=== PATIENT | male | born 1950 | race African-American/Black ===

== ENCOUNTER 2016-08-14 23:20 | Emergency (ER) | payer MEDICAID ==
[2016-08-15] MEDS ORDERED: LIDOCAINE 1%/EPINEPHRINE INJ 20 ML VIAL INJ ONE (01:39)
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
[2016-08-15 05:33] VITALS: BP 171/109
== END 2016-08-15 05:50 | disposition home or self-care (01) ==
LOC: ER 23:20
PROC: 0HQ3XZZ Repair Left Ear Skin, External Approach (ICD-10-PCS; principal; 2016-08-14)
PROC: 0HQ1XZZ Repair Face Skin, External Approach (ICD-10-PCS; 2016-08-14)
DX: S01.312A Laceration without foreign body of left ear, initial encounter (principal); S01.81XA Laceration without foreign body of other part of head, initial encounter; Y04.8XXA Assault by other bodily force, initial encounter; Y92.009 Unspecified place in unspecified non-institutional (private) residence as the place of occurrence of the external cause; I10 Essential (primary) hypertension; J44.9 Chronic obstructive pulmonary disease, unspecified; Z79.899 Other long term (current) drug therapy
CPT/HCPCS: 70450; 70486; 72125; 99284

== ENCOUNTER 2016-10-17 11:05 | Emergency (ER) | payer MEDICAID ==
--- NOTE | 2016-10-17 11:49 | ER Document Report ---
ED General - General Chief Complaint: Urinary Problem Stated Complaint: WEAKNESS Time Seen by Provider: 10/17/16 11:11 Mode of Arrival: Stretcher Information source: Parent, Emergency Med Personnel TRAVEL OUTSIDE OF THE [place] IN LAST 30 DAYS: No - HPI Patient complains to provider of: Generalized weakness, left arm pain Onset: This morning Onset/Duration: Gradual Quality of pain: Achy Severity: Mild Pain Level: 1 Associated symptoms: Weakness Exacerbated by: Denies Relieved by: Denies Notes: It is a 66-year-old male who presents to the emergency room via EMS for complaints of generalized weakness, his only complaint at time of evaluation is pain to the left forearm that he says is been there for a couple of days, he denies any injury, no chest pain or shortness of breath, no abdominal pain, no nausea, vomiting or diarrhea - Related Data Allergies/Adverse Reactions: No Known Allergies Allergy (Verified 08/14/16 23:26) Past Medical History - General Information source: Patient, Emergency Med Personnel - Social History Smoking Status: Current Every Day Smoker Chew tobacco use (# tins/day): No Frequency of alcohol use: Social Drug Abuse: None Family History: Reviewed & Not Pertinent Patient has suicidal ideation: No Patient has homicidal ideation: No - Past Medical History Cardiac Medical History: Reports: Hx Atrial Fibrillation, Hx DVT, Hx Hypertension Pulmonary Medical History: Reports: Hx COPD Renal/ Medical History: Denies: Hx Peritoneal Dialysis Psychiatric Medical History: Reports: Hx Depression - Immunizations Hx Diphtheria, Pertussis, Tetanus Vaccination: No Review of Systems - Review of Systems Constitutional: See HPI EENT: No symptoms reported Cardiovascular: No symptoms reported Respiratory: No symptoms reported Gastrointestinal: No symptoms reported Genitourinary: No symptoms reported Male Genitourinary: No symptoms reported Musculoskeletal: See HPI Skin: No symptoms reported Hematologic/Lymphatic: No symptoms reported Neurological/Psychological: No symptoms reported -: Yes All other systems reviewed and negative Physical Exam - Vital signs Vitals: BP 158/101 H 10/17/16 11:11 Interpretation: Hypertensive - General General appearance: Alert In distress: None - HEENT Head: Normocephalic, Atraumatic Eyes: Normal Conjunctiva: Normal Extraocular movements intact: Yes Eyelashes: Normal Pupils: PERRL Mucous membranes: Dry Pharynx: Normal Neck: Normal - Respiratory Respiratory status: No respiratory distress Chest status: Nontender Breath sounds: Normal Chest palpation: Normal - Cardiovascular Rhythm: Regular Heart sounds: Normal auscultation - Abdominal Inspection: Normal Distension: No distension Bowel sounds: Normal Tenderness: Nontender Organomegaly: No organomegaly - Back Back: Normal - Extremities Forearm: Tender - tender to palpate over left mid forearm and dorsal surface, no swelling, no erythema, no bony deformity - Neurological Orientation: Disoriented to events [place] Coma Scale Eye Opening: Spontaneous [place] Coma Scale Verbal: Confused [place] Coma Scale Motor: Obeys Commands [place] Coma Scale Total: 14 - Skin Skin Temperature: Warm Skin Moisture: Dry Skin Color: Normal Course - Re-evaluation Re-evalutation: 10/17/16 14:12 Son is in the emergency room and wants to take him home, he reports that his father is at his baseline mental status and that he will take care of him at home, also have him follow-up with his primary care provider on Tuesday, patient labs are unremarkable, his vital signs are stable, he is agreeable to leaving with his son at this point in time he was discharged with instructions to follow -up with his primary care provider or return if any additional concerns - Vital Signs Vital signs: Temp Pulse Resp BP Pulse Ox 97.6 F 106 H 24 H 161/93 H 98 10/17/16 14:10 10/17/16 14:10 10/17/16 14:10 10/17/16 14:10 10/17/16 14:10 - Laboratory Result Diagrams: 10/17/16 11:36 10/17/16 11:36 Laboratory results interpreted by me: 10/17/16 10/17/16 11:36 11:36 RBC 5.99 H Hct 52.1 H MCHC 31.5 L Glucose 124 H ALT 20 L Total Protein 8.3 H - Diagnostic Test Radiology reviewed: Image reviewed, Reports reviewed - EKG Interpretation by Me EKG shows normal: Sinus rhythm Rate: Normal Rhythm: NSR Discharge - Discharge Clinical Impression: Dysuria Condition: Stable Disposition: HOME, SELF-CARE Instructions: Urinary Tract Infection ([facility]) Additional Instructions: Follow up with your primary care provider in one to 2 days. Return to the emergency room immediately if symptoms worsen or any additional concerns. Prescriptions: Cephalexin Monohydrate [Keflex 500 mg Capsule] 500 mg PO BID #20 capsule Referrals: LIDIA YAP MD [Primary Care Provider] - Follow up as needed
[2016-10-17 11:57] LABS: ABSOLUTE BASOPHILS # (AUTO) 0.1 10^3/uL (0.0-0.2); ABSOLUTE LYMPHOCYTES (AUTO) 1.5 10^3/uL (0.5-4.7); ABSOLUTE MONOCYTES (AUTO) 1.1 10^3/uL (0.1-1.4); ABSOLUTE NEUT (AUTO) 6.9 10^3/uL (1.7-8.2); BASOPHILS % (AUTO) 1.6 % (0-2); EOSINOPHILS % (AUTO) 0.2 % (0-6); HEMATOCRIT 52.1 % (37.9-51.0); HEMOGLOBIN 16.4 g/dL (13.5-17.0); HGB HCT DIFFERENCE -2.9; LYMPHOCYTES % (AUTO) 15.2 % (13-45); MEAN CORPUSCULAR HEMOGLOBIN 27.4 pg (27.0-33.4); MEAN CORPUSCULAR HGB CONC 31.5 g/dL (32.0-36.0); MEAN CORPUSCULAR VOLUME 87 fl (80-97); MONOCYTES % (AUTO) 11.3 % (3-13); RED BLOOD COUNT 5.99 10^6/uL (4.35-5.55); RED CELL DISTRIBUTION WIDTH 12.9 % (11.5-14.0); SEGMENTED NEUTROPHILS % (AUTO) 71.7 % (42-78); WHITE BLOOD COUNT 9.6 10^3/uL (4.0-10.5)
--- NOTE | 2016-10-17 12:02 | RADIOLOGY REPORT (SQ) ---
EXAM DESCRIPTION: CHEST SINGLE VIEW COMPLETED DATE/TIME: 10/17/2016 11:51 am REASON FOR STUDY: cough COMPARISON: 07/21/2016. NUMBER OF VIEWS: One view. TECHNIQUE: Single frontal radiographic view of the chest acquired. LIMITATIONS: None. FINDINGS: LUNGS AND PLEURA: No opacities, masses or pneumothorax. No pleural effusion. MEDIASTINUM AND HILAR STRUCTURES: No masses. Contour normal. HEART AND VASCULAR STRUCTURES: Heart normal in size. Normal vasculature. BONES: No acute findings. HARDWARE: None in the chest. OTHER: No other significant finding. IMPRESSION: NO SIGNIFICANT RADIOGRAPHIC FINDING IN THE CHEST. TECHNICAL DOCUMENTATION: JOB ID: [id number] [employer]- All Rights Reserved
[2016-10-17 12:10] LABS: ALANINE AMINOTRANSFERASE 20 U/L (21-72); ALBUMIN 4.1 g/dL (3.5-5.0); ALKALINE PHOSPHATASE 115 U/L (38-126); ANION GAP 14 (5-19); ASPARTATE AMINO TRANSFERASE 19 U/L (17-59); BILIRUBIN,DIRECT 0.2 mg/dL (0.0-0.4); BILIRUBIN,TOTAL 1.3 mg/dL (0.2-1.3); BLOOD UREA NITROGEN 15 mg/dL (7-20); CALCIUM 9.7 mg/dL (8.4-10.2); CARBON DIOXIDE 24 mmol/L (22-30); CHLORIDE 103 mmol/L (98-107); CREATINE KINASE 128 U/L (55-170); CREATININE RESULT 1.19 mg/dL (0.52-1.25); GLUCOSE 124 mg/dL (75-110); POTASSIUM 3.6 mmol/L (3.6-5.0); SODIUM 140.9 mmol/L (137-145); TOTAL PROTEIN 8.3 g/dL (6.3-8.2)
[2016-10-17 12:22] LABS: CREATINE KINASE MB 1.34 ng/mL (<4.55)
[2016-10-17 12:23] LABS: TROPONIN I < 0.012 ng/mL
[2016-10-17 13:01] LABS: VENOUS BLOOD BASE EXCESS 0.8 mmol/L; VENOUS BLOOD HCO3 26.4 mmol/L (20-32); VENOUS BLOOD PCO2 45.4 mmHg (35-63); VENOUS BLOOD PH 7.38 (7.30-7.42)
[2016-10-17 14:37] VITALS: BP 161/93
--- NOTE | 2016-10-17 14:42 | RADIOLOGY REPORT (SQ) ---
EXAM DESCRIPTION: FOREARM LEFT COMPLETED DATE/TIME: 10/17/2016 1:58 pm REASON FOR STUDY: pain COMPARISON: None. NUMBER OF VIEWS: Two views. TECHNIQUE: Two radiographic images acquired of the left forearm, including elbow and wrist in at [address] one projection. LIMITATIONS: None. FINDINGS: MINERALIZATION: Normal. BONES: No acute fracture. No worrisome bone lesions. There is bony spurring along the olecranon, an d bony spurring at the proximal radioulnar joint and radiohumeral joint. SOFT TISSUES: No obvious swelling or foreign body. OTHER: IV in the dorsal left wrist. IMPRESSION: No acute fracture or malalignment. 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 TECHNICAL DOCUMENTATION: JOB ID: [id number] [employer]- All Rights Reserved
--- NOTE | 2016-10-17 17:52 | EKG REPORT ---
SEVERITY:- ABNORMAL ECG - SINUS RHYTHM PROBABLE LEFT ATRIAL ABNORMALITY PROBABLE LEFT VENTRICULAR HYPERTROPHY : Confirmed by: Ifeanyi Porras 17-Oct-2016 17:50:52
== END 2016-10-17 14:37 | disposition home or self-care (01) ==
LOC: ER 11:05
DX: R30.0 Dysuria (principal); R53.1 Weakness; M79.602 Pain in left arm; F17.200 Nicotine dependence, unspecified, uncomplicated; I48.91 Unspecified atrial fibrillation; I10 Essential (primary) hypertension; J44.9 Chronic obstructive pulmonary disease, unspecified; Z86.718 Personal history of other venous thrombosis and embolism
CPT/HCPCS: 36415; 71010; 80053; 82550; 82553; 82803; 84484; 85025; 87040; 93005; 93010; 99285

== ENCOUNTER 2016-11-18 10:55 | Inpatient (IN) | payer MEDICARE, MEDICAID ==
--- NOTE | 2016-11-18 11:34 | ER Document Report ---
ED Dizziness/Weakness - General Mode of Arrival: Medic Information source: Patient TRAVEL OUTSIDE OF THE [place] IN LAST 30 DAYS: No - HPI Patient complains to provider of: Weakness Associated symptoms: Other - See above <FRANCESCO BARNES - Last Filed: 11/18/16 11:46> <SOPHIA COLLIER - Last Filed: 11/18/16 20:13> - General Chief Complaint: General Weakness Stated Complaint: weakness Time Seen by Provider: 11/18/16 11:16 Notes: Patient is a 66 year old male, with a past medical history including CVA, diabetes, and hypertension, who presents to the emergency department complaining of general weakness onset yesterday. Patient also complains of an injury to his right hand after falling on the bike path while walking. Patient reports that he developed a blood clot in his right leg several months ago and is currently on blood thinners. Patient denies vomiting, diarrhea, fever, headache, blurry vision, slurred speech, abdominal pain, numbness and tingling, difficulty breathing, and difficulty urinating. (FRANCESCO BARNES) - Related Data Allergies/Adverse Reactions: No Known Allergies Allergy (Verified 08/14/16 23:26) Home Medications: Current Home Medications Quetiapine Fumarate [Seroquel 100 mg Tablet] 100 mg PO QHS 11/18/16 [History] Roflumilast [Daliresp 500 mcg Tablet] 500 mcg PO DAILY 11/18/16 [History] Tamsulosin HCl [Flomax 0.4 mg Cap.sr] 0.4 mg PO DAILY 11/18/16 [History] Past Medical History - General Information source: Patient - Social History Smoking Status: Current Every Day Smoker Chew tobacco use (# tins/day): No Frequency of alcohol use: None Drug Abuse: None Family History: Reviewed & Not Pertinent - Past Medical History Cardiac Medical History: Reports: Hx Atrial Fibrillation, Hx DVT, Hx Hypercholesterolemia, Hx Hypertension Pulmonary Medical History: Reports: Hx COPD Neurological Medical History: Reports: Hx Cerebrovascular Accident - clot, 2016 Psychiatric Medical History: Reports: Hx Depression - Immunizations Hx Diphtheria, Pertussis, Tetanus Vaccination: No <FRANCESCO BARNES - Last Filed: 11/18/16 11:46> Review of Systems - Review of Systems Constitutional: See HPI, Weakness. denies: Fever EENT: denies: Blurred vision Cardiovascular: No symptoms reported Respiratory: denies: Other - difficulty breathing Gastrointestinal: denies: Abdominal pain, Diarrhea, Vomiting Genitourinary: denies: Retention Male Genitourinary: No symptoms reported Musculoskeletal: No symptoms reported Skin: No symptoms reported Hematologic/Lymphatic: No symptoms reported Neurological/Psychological: denies: Headaches, Numbness, Tingling -: Yes All other systems reviewed and negative <FRANCESCO BARNES - Last Filed: 11/18/16 11:46> Physical Exam <FRANCESCO BARNES - Last Filed: 11/18/16 11:46> <SOPHIA COLLIER - Last Filed: 11/18/16 20:13> - Vital signs Vitals: Resp BP Pulse Ox 22 H 166/85 H 97 11/18/16 11:03 11/18/16 11:03 11/18/16 11:03 - Notes Notes: GENERAL: Alert, interacts well. No acute distress. HEAD: Normocephalic, atraumatic. EYES: Pupils equal, round, and reactive to light. Extraocular movements intact. ENT: Oral mucosa moist, tongue midline. NECK: Full range of motion. Supple. Trachea midline. LUNGS: Inspiratory and expiratory rhonchi that clear with cough. No wheezes, or rales. No respiratory distress. HEART: Regular rate and rhythm. No murmurs, gallops, or rubs. ABDOMEN: Soft, non-tender. Non-distended. Bowel sounds present in all 4 quadrants. EXTREMITIES: No edema, radial and dorsalis pedis pulses 2/4 bilaterally. No cyanosis. NEUROLOGICAL: Alert and oriented x3. 3 out of 5 strength of left upper extremity , 5 out of 5 in right. 5 out of 5 strength in bilateral lower extremities. Normal speech. Left sided facial droop that is worse at rest and somewhat clears when smiling. Biceps and patellar DTRs 2+ bilaterally. PSYCH: Normal affect, normal mood. SKIN: Warm, dry, normal turgor. Superficial abrasions to radial aspect of left wrist and small amount of blood on broken nail of right 5th digit. (FRANCESCO BARNES) Course <FRANCESCO BARNES - Last Filed: 11/18/16 11:46> - Laboratory Result Diagrams: 11/18/16 11:45 11/18/16 11:45 <SOPHIA COLLIER - Last Filed: 11/18/16 20:13> - Re-evaluation Re-evalutation: 11/18/16 15:18 CBC unremarkable, coags normal, blood gas unremarkable, chemistries unremarkable , lactic acid and ammonia are normal, cardiac enzymes are negative however proBNP is elevated at 1760. Patient is not hypoxic. Urinalysis does not show any signs of infection although there is small blood only 1 RBC. Drug screen is negative. CT scan of the head shows chronic small vessel changes but no new findings. Chest x-ray shows mild chronic interstitial changes versus recurrent mild pulmonary edema. Given the elevated BNP I favor pulmonary edema. Patient will be treated with Lasix, though I see no record of CHF in his past medical records, this appears to be a new disease process for him. I will speak with Dr. Garcia regarding possible admission for new onset CHF. 11/18/16 15:23 Dr. Deleon agrees to admit for workup for new onset congestive heart failure. 11/18/16 19:19 After the patient had been transferred to the floor and had been out there for approximately 2 hours I received a phone call from a Dr. Deleon telling me that this is no longer his patient that the patient was no longer part of his practice and that he was no longer going to accept this patient. Dr. Deleon and I had a discussion regarding the fact that the patient had already been accepted by him and admitted to his service. Dr. Deleon had been in his office at the time that he accepted this admission. Dr. Deleon is now refusing to see the patient after all. Dr. Gracia requests that I call the hospitalist and transfer the patient to their service. I did discuss with Dr. Deleon that it would be more appropriate for him to transfer the patient from his service to the hospitalist service if he felt that he should no longer be caring for this patient as the patient had already been accepted by him and admitted to his service. Dr. Deleon refuses to care for this patient anymore or make any more phone calls therefore to facilitate the appropriate care of this patient I did agree to call the hospitalist service, I discussed this patient with Dr. Stevens and then with Dr. Mac who are agreeable to accepting this patient to their service as Dr. Deleon is flat out refusing to care for his patient at this time. The nurse from the floor did tell me that the patient's stated she does not want her to be cared for by Dr. Deleon anymore. Patient was discussed with Dr. Mac and transfer to his service. (SOPHIA COLLIER) - Vital Signs Vital signs: Temp Pulse Resp BP Pulse Ox 97.7 F 70 18 169/94 H 89 L 11/18/16 17:21 11/18/16 17:27 11/18/16 17:21 11/18/16 17:21 11/18/16 17:21 - Laboratory Laboratory results interpreted by me: 11/18/16 11/18/16 11/18/16 11:45 13:13 13:30 Chloride 109 H ALT 16 L Ammonia NT-Pro-B Natriuret Pep 1760 H Urine Protein 100 H Urine Blood SMALL H 11/18/16 14:41 Chloride ALT Ammonia < 8.7 L NT-Pro-B Natriuret Pep Urine Protein Urine Blood - EKG Interpretation by Me Additional EKG results interpreted by me: 11/18/16 15:19 EKG shows sinus rhythm at a rate of 70, normal axis, normal intervals, no ST segment elevations or depressions, isolated T-wave inversions are noted in lead III, there is LVH noted per my interpretation. (SOPHIA COLLIER) Discharge <FRANCESCO BARNES - Last Filed: 11/18/16 11:46> - Discharge Admitting Provider: Adrienne Unit Admitted: [facility] <SOPHIA COLLIER - Last Filed: 11/18/16 20:13> - Discharge Clinical Impression: Tobacco abuse Congestive heart failure, acute Qualifiers: Congestive heart failure type: unspecified congestive heart failure type Qualified Code(s): I50.9 - Heart failure, unspecified Hypertension Qualifiers: Hypertension type: unspecified secondary hypertension Qualified Code(s): I15.9 - Secondary hypertension, unspecified Scribe Attestation: 11/18/16 20:13 I personally performed the services described in the documentation, reviewed and edited the documentation which was dictated to the scribe in my presence, and it accurately records my words and actions. (SOPHIA COLLIER) Scribe Documentation - Scribe Written by Scribe:: lee Gonzalez, , [id number] acting as scribe for :: Marissa <FRANCESCO BARNES - Last Filed: 11/18/16 11:46>
[2016-11-18 11:51] LABS: ABSOLUTE BASOPHILS # (AUTO) 0.1 10^3/uL (0.0-0.2); ABSOLUTE EOSINOPHILS # (AUTO) 0.3 10^3/uL (0.0-0.6); ABSOLUTE LYMPHOCYTES (AUTO) 1.7 10^3/uL (0.5-4.7); ABSOLUTE MONOCYTES (AUTO) 0.6 10^3/uL (0.1-1.4); ABSOLUTE NEUT (AUTO) 4.5 10^3/uL (1.7-8.2); BASOPHILS % (AUTO) 1.3 % (0-2); EOSINOPHILS % (AUTO) 3.7 % (0-6); LYMPHOCYTES % (AUTO) 23.8 % (13-45); MEAN CORPUSCULAR HEMOGLOBIN 27.6 pg (27.0-33.4); MEAN CORPUSCULAR VOLUME 86 fl (80-97); MONOCYTES % (AUTO) 8.4 % (3-13); RED BLOOD COUNT 5.45 10^6/uL (4.35-5.55); RED CELL DISTRIBUTION WIDTH 13.2 % (11.5-14.0); SEGMENTED NEUTROPHILS % (AUTO) 62.8 % (42-78); WHITE BLOOD COUNT 7.1 10^3/uL (4.0-10.5)
[2016-11-18 12:11] LABS: ALANINE AMINOTRANSFERASE 16 U/L (21-72); ALBUMIN 3.7 g/dL (3.5-5.0); ALKALINE PHOSPHATASE 113 U/L (38-126); ANION GAP 12 (5-19); ASPARTATE AMINO TRANSFERASE 17 U/L (17-59); BILIRUBIN,DIRECT 0.3 mg/dL (0.0-0.4); BILIRUBIN,TOTAL 1.1 mg/dL (0.2-1.3); BLOOD UREA NITROGEN 11 mg/dL (7-20); CALCIUM 9.2 mg/dL (8.4-10.2); CARBON DIOXIDE 22 mmol/L (22-30); CHLORIDE 109 mmol/L (98-107); CREATINE KINASE 130 U/L (55-170); GLUCOSE 93 mg/dL (75-110); POTASSIUM 3.9 mmol/L (3.6-5.0); SODIUM 142.7 mmol/L (137-145); TOTAL PROTEIN 7.8 g/dL (6.3-8.2)
[2016-11-18 12:19] LABS: CREATINE KINASE MB 0.71 ng/mL (<4.55)
[2016-11-18 12:24] LABS: TROPONIN I < 0.012 ng/mL
--- NOTE | 2016-11-18 12:54 | EKG REPORT ---
SEVERITY:- ABNORMAL ECG - SINUS RHYTHM LEFT VENTRICULAR HYPERTROPHY : Confirmed by: Anup Powers MD 18-Nov-2016 12:53:35
--- NOTE | 2016-11-18 12:56 | RADIOLOGY REPORT (SQ) ---
EXAM DESCRIPTION: CT HEAD WITHOUT COMPLETED DATE/TIME: 11/18/2016 12:33 pm REASON FOR STUDY: fall, on blood thinners COMPARISON: 08/15/2016 TECHNIQUE: Axial images acquired through the brain without intravenous contrast. Images reviewed wi th bone, brain and subdural windows. Images stored on PACS. All CT scanners at this facility use dose modulation, iterative reconstruction, and/or weight based d osing when appropriate to reduce radiation dose to as low as reasonably achievable (ALARA). [facility]: Dose Right [facility]: CareDose [facility]: Dose Right [facility]: Teradose 4D [facility]: [email or web address] RADIATION DOSE: Up-to-date CT equipment and radiation dose reduction techniques were employed. CTDIv ol: 28.0 mGy. DLP: 560 mGy-cm. mGy. LIMITATIONS: Poor positioning and motion artifact. FINDINGS: VENTRICLES: Atrophy more prominent on the right than left. CEREBRUM: No masses. No hemorrhage. No midline shift. Normal brambila/white matter differentiation. N o evidence for acute infarction. Stable white matter changes greater on the right than left presumab ly chronic ischemic changes. Small old lacunar infarcts in the right basal ganglion. CEREBELLUM: No masses. No hemorrhage. No alteration of density. No evidence for acute infarction. EXTRAAXIAL SPACES: No fluid collections. No masses. ORBITS AND GLOBE: No intra- or extraconal masses. Normal contour of globe without masses. CALVARIUM: No fracture. PARANASAL SINUSES: No fluid or mucosal thickening. SOFT TISSUES: No mass or hematoma. OTHER: No other significant finding. IMPRESSION: 1. No acute abnormality. 2. Chronic white matter changes right greater than left likely chronic ischemic disease. 3. Atrophy TECHNICAL DOCUMENTATION: JOB ID: [id number] Quality ID # [id number]: Final reports with documentation of one or more dose reduction techniques (e.g., Au tomated exposure control, adjustment of the mA and/or kV according to patient size, use of iterative reconstruction technique) 2010 [employer]- All Rights Reserved
[2016-11-18] MEDS ORDERED: NORMAL SALINE 1000 ML 1,000 ML IV ONE (13:09)
--- NOTE | 2016-11-18 13:12 | RADIOLOGY REPORT (SQ) ---
EXAM DESCRIPTION: CHEST SINGLE VIEW COMPLETED DATE/TIME: 11/18/2016 12:31 pm REASON FOR STUDY: weakness, generalized COMPARISON: 10/17/2016 EXAM PARAMETERS: NUMBER OF VIEWS: One view. TECHNIQUE: Single frontal radiographic view of the chest acquired. RADIATION DOSE: NA LIMITATIONS: None. FINDINGS: LUNGS AND PLEURA: Mild increased interstitial density most prominently in the right parahi lar region which is a chronic finding and may represent chronic interstitial change although recurren t pulmonary edema must also be considered. MEDIASTINUM AND HILAR STRUCTURES: No masses. Contour normal. HEART AND VASCULAR STRUCTURES: Heart normal in size. Normal vasculature. BONES: No acute findings. HARDWARE: None in the chest. OTHER: No other significant finding. IMPRESSION: Mild chronic interstitial changes versus mild recurrent pulmonary edema. TECHNICAL DOCUMENTATION: JOB ID: [id number]
[2016-11-18 13:44] LABS: PROTHROMBIN TIME 14.5 SEC (11.4-15.4)
[2016-11-18 13:45] LABS: PARTIAL THROMBOPLASTIN TIME 33.5 SEC (23.5-35.8)
[2016-11-18 13:59] LABS: APPEARANCE,URINE CLEAR; BILIRUBIN,URINE NEGATIVE (NEGATIVE); GLUCOSE, URINE NEGATIVE (NEGATIVE); KETONES,URINE NEGATIVE (NEGATIVE); LEUKOCYTE ESTERASE,URINE NEGATIVE (NEGATIVE); NITRITE,URINE NEGATIVE (NEGATIVE); PROTEIN,URINE 100 mg/dL (NEGATIVE); UROBILINOGEN,URINE NEGATIVE mg/dL (<2.0)
[2016-11-18 14:03] LABS: URINE SPECIFIC GRAVITY 1.015
[2016-11-18 14:18] LABS: URINE BARBITURATES SCREEN NEGATIVE; URINE METHADONE SCREEN NEGATIVE; URINE OPIATES LOW NEGATIVE; URINE PHENCYCLIDINE SCREEN NEGATIVE
[2016-11-18] MEDS ORDERED: FUROSEMIDE INJ/PF 40 MG/4 ML SDV IV ONE ×2 (14:48→19:00)
[2016-11-18 14:51] LABS: VENOUS BLOOD BASE EXCESS -0.5 mmol/L; VENOUS BLOOD HCO3 25.8 mmol/L (20-32); VENOUS BLOOD PCO2 48.2 mmHg (35-63); VENOUS BLOOD PH 7.35 (7.30-7.42)
[2016-11-18] MEDS ORDERED: DIPHENHYDRAMINE HCL 50 MG/ML VIAL IV ONE (16:00)
[2016-11-18] MEDS ORDERED: HALOPERIDOL LACTATE INJ 5 MG/1 ML VIAL IV ONE (16:00)
[2016-11-18 18:54] LABS: PARTIAL THROMBOPLASTIN TIME 33.9 SEC (23.5-35.8)
[2016-11-18] MEDS ORDERED: METOPROLOL SUCCINATE 50 MG TAB.SR.24H PO ONE (19:00)
[2016-11-18] MEDS ORDERED: ENOXAPARIN SODIUM INJ 40 MG/0.4 ML DISP.SYRIN SUBCUT ONE (19:00)
[2016-11-18 19:06] LABS: MAGNESIUM 1.6 mg/dL (1.6-2.3)
[2016-11-18] MEDS ORDERED: HYDRALAZINE HCL INJ/PF 20 MG/1 ML SDV IV PRN (19:12)
[2016-11-18 19:20] LABS: CREATINE KINASE MB 1.22 ng/mL (<4.55)
[2016-11-18 19:34] LABS: APPEARANCE,URINE CLEAR; BILIRUBIN,URINE NEGATIVE (NEGATIVE); GLUCOSE, URINE NEGATIVE (NEGATIVE); KETONES,URINE NEGATIVE (NEGATIVE); LEUKOCYTE ESTERASE,URINE NEGATIVE (NEGATIVE); NITRITE,URINE NEGATIVE (NEGATIVE); PROTEIN,URINE NEGATIVE (NEGATIVE); URINE SPECIFIC GRAVITY 1.003; UROBILINOGEN,URINE NEGATIVE mg/dL (<2.0)
[2016-11-18 19:34] LABS: TROPONIN I < 0.012 ng/mL
[2016-11-18 19:38] LABS: THYROID STIMULATING HORMONE 1.66 uIU/mL (0.47-4.68)
[2016-11-18] MEDS ORDERED: ACETAMINOPHEN 325 MG TABLET PO PRN (19:45)
[2016-11-18] MEDS ORDERED: HYDRALAZINE HCL 50 MG TABLET PO ONE (20:00)
[2016-11-18] MEDS ORDERED: TAMSULOSIN HCL 0.4 MG CAP.SR.24H PO ONE (20:00)
[2016-11-18] MEDS: ENALAPRIL MALEATE 5 MG TABLET PO SCH (22:59)
[2016-11-18] MEDS: QUETIAPINE FUMARATE 100 MG TABLET PO SCH (22:59)
[2016-11-19 01:13] LABS: CREATINE KINASE MB 1.06 ng/mL (<4.55)
[2016-11-19 01:17] LABS: TROPONIN I < 0.012 ng/mL
--- NOTE | 2016-11-19 03:34 | PDOC H&P ---
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 He had been in his usual state of health until approximately 48 hours prior to presentation with nonspecific complaints of generalized weakness and fatigue, denying chest pain nausea vomiting or shortness of breath. In the emergency room he is found to have uncontrolled hypertension, tachypnea and a chest x-ray suggestive of pulmonary edema he is referred to the hospitalist for admission. Patient denies recent change or missing medications but does not know them. Currently denying chest pain shortness or breath. Past Medical History Cardiac Medical History: Reports: Atrial Fibrillation, DVT, Hyperlipidema, Hypertension Pulmonary Medical History: Reports: Chronic Obstructive Pulmonary Disease (COPD) Psychiatric Medical History: Reports: Alcohol Dependency, Depression, Tobacco Dependency Social History Information Source: Patient, [facility] Records Lives with: Spouse/Significant other Smoking Status: Current Every Day Smoker Cigarettes Packs Per Day: 1 Frequency of Alcohol Use: Social Amount of Alcoholic Beverages Per Day: 3 Hx Recreational Drug Use: No Drugs: None Hx Prescription Drug Abuse: No - Advance Directive Resuscitation Status: Full Code Family History Family History: CAD, COPD Parental Family History Reviewed: Yes Children Family History Reviewed: Yes Sibling(s) Family History Reviewed.: Yes Medication/Allergy Home Medications: Quetiapine Fumarate [Seroquel 100 mg Tablet] 100 mg PO QHS 11/18/16 Roflumilast [Daliresp 500 mcg Tablet] 500 mcg PO DAILY 11/18/16 Tamsulosin HCl [Flomax 0.4 mg Cap.sr] 0.4 mg PO DAILY 11/18/16 Allergies/Adverse Reactions: No Known Allergies Allergy (Verified 08/14/16 23:26) Review of Systems Constitutional: ABSENT: chills, fever(s), headache(s), weight gain, weight loss Eyes: ABSENT: visual disturbances Ears: ABSENT: hearing changes Cardiovascular: ABSENT: chest pain, dyspnea on exertion, edema, orthropnea, palpitations Respiratory: ABSENT: cough, hemoptysis Gastrointestinal: ABSENT: abdominal pain, constipation, diarrhea, hematemesis, hematochezia, nausea, vomiting Genitourinary: ABSENT: dysuria, hematuria Musculoskeletal: ABSENT: joint swelling Integumentary: ABSENT: rash, wounds Neurological: ABSENT: abnormal gait, abnormal speech, confusion, dizziness, focal weakness, syncope Psychiatric: ABSENT: anxiety, depression, homidical ideation, suicidal ideation Endocrine: ABSENT: cold intolerance, heat intolerance, polydipsia, polyuria Hematologic/Lymphatic: ABSENT: easy bleeding, easy bruising Physical Exam Vital Signs: Temp Pulse Resp BP Pulse Ox 98.5 F 76 20 112/60 95 11/19/16 00:08 11/19/16 02:00 11/19/16 00:08 11/19/16 00:08 11/19/16 00:08 Intake & Output 11/17/16 11/18/16 11/19/16 11:59 11:59 11:59 Intake Total 240 Balance 240 General appearance: PRESENT: cooperative, mild distress, well-developed, well- nourished Head exam: PRESENT: atraumatic, normocephalic Eye exam: PRESENT: conjunctiva pink, EOMI, PERRLA. ABSENT: scleral icterus Ear exam: PRESENT: normal external ear exam Mouth exam: PRESENT: moist, tongue midline Neck exam: ABSENT: carotid bruit, JVD, lymphadenopathy, thyromegaly Respiratory exam: PRESENT: crackles, prolonged expiratory phas, symmetrical, tachypnea. ABSENT: accessory muscle use, chest wall tenderness, clear to auscultation gera Cardiovascular exam: PRESENT: RRR. ABSENT: diastolic murmur, rubs, systolic murmur Pulses: PRESENT: normal dorsalis pedis pul Vascular exam: PRESENT: normal capillary refill GI/Abdominal exam: PRESENT: normal bowel sounds, soft. ABSENT: distended, guarding, mass, organolmegaly, rebound, tenderness Rectal exam: PRESENT: deferred Extremities exam: PRESENT: full ROM. ABSENT: calf tenderness, clubbing, pedal edema Neurological exam: PRESENT: alert, awake, oriented to person, oriented to place , oriented to time, oriented to situation, CN II-XII grossly intact. ABSENT: motor sensory deficit Psychiatric exam: PRESENT: appropriate affect, normal mood. ABSENT: homicidal ideation, suicidal ideation Skin exam: PRESENT: dry, intact, warm. ABSENT: cyanosis, rash Results Laboratory Results: 11/18/16 11/18/16 11/18/16 18:20 18:20 18:45 Magnesium 1.6 TSH 1.66 Free T4 1.64 Urine Color COLORLESS Urine Appearance CLEAR Urine pH 6.0 Ur Specific [place] 1.003 Urine Protein NEGATIVE Urine Glucose (UA) NEGATIVE Urine Ketones NEGATIVE Urine Blood NEGATIVE Urine Nitrite NEGATIVE Ur Leukocyte Esterase NEGATIVE Urine RBC (Auto) 0 11/18/16 11/18/16 11/19/16 18:20 18:20 00:15 Creatine Kinase 194 H 222 H CK-MB (CK-2) 1.22 Troponin I < 0.012 11/19/16 00:15 Creatine Kinase CK-MB (CK-2) 1.06 Troponin I < 0.012 Impressions: Chest X-Ray 11/18/16 11:16 IMPRESSION: Mild chronic interstitial changes versus mild recurrent pulmonary edema. Head CT 11/18/16 11:29 IMPRESSION: 1. No acute abnormality. 2. Chronic white matter changes right greater than left likely chronic ischemic disease. 3. Atrophy Assessment & Plan - Diagnosis (1) Congestive heart failure, acute Qualifiers: Congestive heart failure type: unspecified congestive heart failure type Qualified Code(s): I50.9 - Heart failure, unspecified Is this a current diagnosis for this admission?: YesPlan: Likely secondary to uncontrolled hypertension, I will order echocardiogram and treat empirically with Lasix and hydralazine. (2) Hypertension Qualifiers: Hypertension type: unspecified secondary hypertension Qualified Code(s) : I15.9 - Secondary hypertension, unspecified; I15 - Secondary hypertension Is this a current diagnosis for this admission?: YesPlan: Education, hydralazine and loop diuretic (3) Tobacco abuse Is this a current diagnosis for this admission?: YesPlan: Tobacco Dependence patient received tobacco cessation counseling and offered nicotine replacement options (4) Acute exacerbation of chronic obstructive airways disease Is this a current diagnosis for this admission?: YesPlan: Tobacco cessation, albuterol, Atrovent, flutter valve (5) Alcohol dependence Qualifiers: Substance use status: unspecified alcohol-induced disorder Qualified Code(s): F10.29 - Alcohol dependence with unspecified alcohol-induced disorder Is this a current diagnosis for this admission?: YesPlan: No history of alcohol withdrawal labs did not suggest malnutrition, will observe with consideration of Ativan as needed - Time Time Spent: 30 to 50 Minutes - Inpatient Certification Medical Necessity: Need Close Monitoring Due to Risk of Patient Decompensation
[2016-11-19] MEDS: HYDRALAZINE HCL 50 MG TABLET PO SCH ×3 (05:54→21:18)
[2016-11-19 06:19] LABS: ABSOLUTE BASOPHILS # (AUTO) 0.1 10^3/uL (0.0-0.2); ABSOLUTE EOSINOPHILS # (AUTO) 0.3 10^3/uL (0.0-0.6); ABSOLUTE MONOCYTES (AUTO) 0.9 10^3/uL (0.1-1.4); ABSOLUTE NEUT (AUTO) 5.9 10^3/uL (1.7-8.2); BASOPHILS % (AUTO) 1.3 % (0-2); EOSINOPHILS % (AUTO) 2.8 % (0-6); HEMATOCRIT 46.7 % (37.9-51.0); HEMOGLOBIN 14.8 g/dL (13.5-17.0); HGB HCT DIFFERENCE -2.3; LYMPHOCYTES % (AUTO) 21.7 % (13-45); MEAN CORPUSCULAR HEMOGLOBIN 27.3 pg (27.0-33.4); MEAN CORPUSCULAR HGB CONC 31.7 g/dL (32.0-36.0); MEAN CORPUSCULAR VOLUME 86 fl (80-97); MONOCYTES % (AUTO) 9.7 % (3-13); RED BLOOD COUNT 5.42 10^6/uL (4.35-5.55); RED CELL DISTRIBUTION WIDTH 13.1 % (11.5-14.0); SEGMENTED NEUTROPHILS % (AUTO) 64.5 % (42-78); WHITE BLOOD COUNT 9.2 10^3/uL (4.0-10.5)
[2016-11-19 06:40] LABS: ALANINE AMINOTRANSFERASE 26 U/L (21-72); ALBUMIN 3.7 g/dL (3.5-5.0); ALKALINE PHOSPHATASE 117 U/L (38-126); ANION GAP 13 (5-19); ASPARTATE AMINO TRANSFERASE 21 U/L (17-59); BILIRUBIN,DIRECT 0.3 mg/dL (0.0-0.4); BILIRUBIN,TOTAL 1.3 mg/dL (0.2-1.3); BLOOD UREA NITROGEN 17 mg/dL (7-20); CALCIUM 9.3 mg/dL (8.4-10.2); CARBON DIOXIDE 22 mmol/L (22-30); CHLORIDE 106 mmol/L (98-107); CHOLESTEROL 146.71 mg/dL (0-200); CREATINE KINASE 200 U/L (55-170); CREATININE RESULT 1.21 mg/dL (0.52-1.25); Direct HDL 44 mg/dL (>40); GLUCOSE 92 mg/dL (75-110); POTASSIUM 3.6 mmol/L (3.6-5.0); SODIUM 141.4 mmol/L (137-145); TOTAL PROTEIN 7.8 g/dL (6.3-8.2); TRIGLYCERIDES 75 mg/dL (<150)
[2016-11-19 06:51] LABS: CREATINE KINASE MB 0.97 ng/mL (<4.55); DIRECT LDL 90 mg/dL (<100)
[2016-11-19 06:58] LABS: TROPONIN I < 0.012 ng/mL
[2016-11-19] MEDS: TAMSULOSIN HCL 0.4 MG CAP.SR.24H PO SCH (09:36)
[2016-11-19] MEDS: DOCUSATE SODIUM 100 MG CAPSULE PO SCH ×2 (09:36→17:12)
[2016-11-19] MEDS: ROFLUMILAST 500 MCG TABLET PO SCH (09:38)
[2016-11-19] MEDS: FUROSEMIDE INJ/PF 40 MG/4 ML SDV IV SCH (09:38)
[2016-11-19] MEDS: METOPROLOL SUCCINATE 50 MG TAB.SR.24H PO SCH (09:38)
[2016-11-19] MEDS: ENOXAPARIN SODIUM INJ 40 MG/0.4 ML DISP.SYRIN SUBCUT SCH (09:42)
[2016-11-19] MEDS ORDERED: (PENDING PHARMACY ID) (Roflumilast [Daliresp 500 Mcg Tablet] 500 MCG) PO SCH (10:00)
[2016-11-19] MEDS ORDERED: DOCUSATE SODIUM 100 MG/10 ML UDC PO SCH (10:00)
[2016-11-19] MEDS: ENALAPRIL MALEATE 5 MG TABLET PO SCH ×2 (11:38→21:20)
--- NOTE | 2016-11-19 13:28 | PDOC PROGRESS REPORT ---
Subjective Progress Note for:: 11/19/16 Subjective:: Patient complains of shortness of breath Physical Exam Vital Signs: Temp Pulse Resp BP Pulse Ox 97.7 F 80 18 115/68 93 11/19/16 12:09 11/19/16 12:09 11/19/16 12:09 11/19/16 12:09 11/19/16 12:09 Intake & Output 11/18/16 11/19/16 11/20/16 06:59 06:59 06:59 Intake Total 250 120 Output Total 150 Balance 250 -30 Weight 64.3 kg General appearance: PRESENT: no acute distress Eye exam: PRESENT: conjunctiva pink. ABSENT: scleral icterus Mouth exam: PRESENT: moist, tongue midline Neck exam: ABSENT: JVD Respiratory exam: PRESENT: decreased breath sounds - Decreased breath sounds in the bases. ABSENT: rales, rhonchi, wheezes Cardiovascular exam: PRESENT: RRR. ABSENT: diastolic murmur, rubs, systolic murmur Vascular exam: PRESENT: normal capillary refill GI/Abdominal exam: PRESENT: normal bowel sounds, soft. ABSENT: distended, guarding, mass, organolmegaly, rebound, tenderness Extremities exam: ABSENT: calf tenderness, clubbing, pedal edema Neurological exam: PRESENT: alert, awake, oriented to person, oriented to place , oriented to time, oriented to situation, CN II-XII grossly intact, motor sensory deficit - Left-sided weakness Psychiatric exam: PRESENT: appropriate affect Skin exam: PRESENT: dry, intact, warm. ABSENT: cyanosis, rash Results Laboratory Results: 11/19/16 06:01 11/19/16 06:01 11/18/16 11/18/16 11/18/16 18:20 18:20 18:45 WBC RBC Hgb Hct MCV MCH MCHC RDW Plt Count Seg Neutrophils % Lymphocytes % Monocytes % Eosinophils % Basophils % Absolute Neutrophils Absolute Lymphocytes Absolute Monocytes Absolute Eosinophils Absolute Basophils Sodium Potassium Chloride Carbon Dioxide Anion Gap BUN Creatinine Est GFR ( Amer) Est GFR (Non-Af Amer) Glucose Calcium Magnesium 1.6 Total Bilirubin AST ALT Alkaline Phosphatase Total Protein Albumin Triglycerides Cholesterol LDL Cholesterol Direct VLDL Cholesterol HDL Cholesterol TSH 1.66 Free T4 1.64 Urine Color COLORLESS Urine Appearance CLEAR Urine pH 6.0 Ur Specific [place] 1.003 Urine Protein NEGATIVE Urine Glucose (UA) NEGATIVE Urine Ketones NEGATIVE Urine Blood NEGATIVE Urine Nitrite NEGATIVE Ur Leukocyte Esterase NEGATIVE Urine RBC (Auto) 0 11/19/16 11/19/16 06:01 06:01 WBC 9.2 RBC 5.42 Hgb 14.8 Hct 46.7 MCV 86 MCH 27.3 MCHC 31.7 L RDW 13.1 Plt Count 245 Seg Neutrophils % 64.5 Lymphocytes % 21.7 Monocytes % 9.7 Eosinophils % 2.8 Basophils % 1.3 Absolute Neutrophils 5.9 Absolute Lymphocytes 2.0 Absolute Monocytes 0.9 Absolute Eosinophils 0.3 Absolute Basophils 0.1 Sodium 141.4 Potassium 3.6 Chloride 106 Carbon Dioxide 22 Anion Gap 13 BUN 17 Creatinine 1.21 Est GFR ( Amer) > 60 Est GFR (Non-Af Amer) > 60 Glucose 92 Calcium 9.3 Magnesium Total Bilirubin 1.3 AST 21 ALT 26 Alkaline Phosphatase 117 Total Protein 7.8 Albumin 3.7 Triglycerides 75 Cholesterol 146.71 LDL Cholesterol Direct 90 VLDL Cholesterol 15.0 HDL Cholesterol 44 TSH Free T4 Urine Color Urine Appearance Urine pH Ur Specific [place] Urine Protein Urine Glucose (UA) Urine Ketones Urine Blood Urine Nitrite Ur Leukocyte Esterase Urine RBC (Auto) 11/18/16 11/18/16 11/19/16 18:20 18:20 00:15 Creatine Kinase 194 H 222 H CK-MB (CK-2) 1.22 Troponin I < 0.012 NT-Pro-B Natriuret Pep 11/19/16 11/19/16 11/19/16 00:15 06:01 06:01 Creatine Kinase 200 H CK-MB (CK-2) 1.06 0.97 Troponin I < 0.012 < 0.012 NT-Pro-B Natriuret Pep 2880 H Impressions: Chest X-Ray 11/18/16 11:16 IMPRESSION: Mild chronic interstitial changes versus mild recurrent pulmonary edema. Head CT 11/18/16 11:29 IMPRESSION: 1. No acute abnormality. 2. Chronic white matter changes right greater than left likely chronic ischemic disease. 3. Atrophy Assessment & Plan - Diagnosis (1) Congestive heart failure, acute Qualifiers: Congestive heart failure type: unspecified congestive heart failure type Qualified Code(s): I50.9 - Heart failure, unspecified Is this a current diagnosis for this admission?: YesPlan: Likely secondary to uncontrolled hypertension. It is improving. Will continue with the Lasix. Echocardiogram results are pending. (2) Hypertension Qualifiers: Hypertension type: unspecified secondary hypertension Qualified Code(s) : I15.9 - Secondary hypertension, unspecified; I15 - Secondary hypertension Is this a current diagnosis for this admission?: YesPlan: Pressure is improved. (3) Acute exacerbation of chronic obstructive airways disease Is this a current diagnosis for this admission?: YesPlan: Continue with nebulizers. (4) Paroxysmal a-fib Is this a current diagnosis for this admission?: YesPlan: Patient is rate controlled - Time Time Spent with patient: 25-34 minutes - Inpatient Certification Medical Necessity: Need Close Monitoring Due to Risk of Patient Decompensation
--- NOTE | 2016-11-19 14:04 | XCELERA REPORT ---
[address] [address] Transthoracic Echocardiogram Report Name: TREY DAWSON Age: 66 yrs Gender: Male : 1950 Patient Status: Inpatient Patient Location: [id number]\S\334\S\A Study Date: 11/19/2016 09:57 AM Height: 65 in Weight: 150 lb BSA: 1.8 m2 Procedure: A two-dimensional transthoracic echocardiogram with color flow and Doppler was performed. The study was technically difficult with many images being suboptimal in quality. Reason For Study: chf History: CHF. Ordering Physician: LIDIA YAP Performed By: Zia Rodrigez Interpretation Summary The left ventricle is normal in size. There is normal left ventricular wall thickness. LV EF is 55% Left ventricular systolic function is low normal. Doppler measurements suggest impaired left ventricular relaxation, which is associated with grade I/IV or mild diastolic dysfunction The left ventricular wall motion is normal. There is no thrombus. The left atrial size is normal. There is no evidence of mitral valve prolapse. There is no mitral valve stenosis. There is a trace to mild amount of mitral regurgitation There is no aortic valvular vegetation. There is no aortic valve stenosis There is no LVOT obstruction. There is a mild amount of aortic regurgitation There is no tricuspid stenosis. There is a trace to mild amount of tricuspid regurgitation Right ventricular systolic pressure is normal. RVSP is 29 mm of Hg , with RA mean of 5. There is no pulmonic valvular stenosis. There is no pulmonic valvular regurgitation. There is no pericardial effusion. MMode/2D Measurements \T\ Calculations RVDd: 2.3 cm LVIDd: 5.1 cm FS: 24.8 % Ao root diam: 3.0 cm IVSd: 0.88 cm LVIDs: 3.9 cm EDV(Teich): 126.4 ml LVPWd: 0.93 cmESV(Teich): 64.8 ml Ao root area: 7.2 cm2 EF(Teich): 48.7 % LA dimension: 3.5 cm LVOT diam: 1.9 cm LVOT area: 2.8 cm2 Doppler Measurements \T\ Calculations MV E max therese: MV P1/2t max therese: Ao V2 max: AI max therees: 64.7 cm/sec 65.6 cm/sec 116.1 cm/sec 283.4 cm/sec MV A max therese: MV P1/2t: 42.9 msec Ao max PG: AI max P.9 cm/sec MVA(P1/2t): 5.1 cm2 5.4 mmHg 32.2 mmHg MV E/A: 0.76 MV dec slope: MARIA C(V,D): 2.3 cm2 AI dec slope: 447.9 cm/sec2 173.7 cm/sec2 AI P1/2t: 477.9 msec LV V1 max PG: PA V2 max: TR max therese: 3.6 mmHg 64.2 cm/sec 242.2 cm/sec LV V1 max: PA max P.6 mmHg TR max P.3 cm/sec 23.5 mmHg Left Ventricle The left ventricle is normal in size. There is normal left ventricular wall thickness. LV EF is 55%. Left ventricular systolic function is low normal. Doppler measurements suggest impaired left ventricular relaxation, which is associated with grade I/IV or mild diastolic dysfunction. The left ventricular wall motion is normal. There is no thrombus. There is no ventricular septal defect visualized. Right Ventricle The right ventricle is normal in size and function. Atria The right atrium is normal. The left atrial size is normal. The interatrial septum is intact with no evidence for an atrial septal defect. Mitral Valve There is no evidence of mitral valve prolapse. There is no vegetation seen on the mitral valve. There is no mitral valve stenosis. There is a trace to mild amount of mitral regurgitation. Aortic Valve There is no aortic valvular vegetation. There is no aortic valve stenosis. There is no LVOT obstruction. There is a mild amount of aortic regurgitation. Tricuspid Valve There is no tricuspid stenosis. There is a trace to mild amount of tricuspid regurgitation. Right ventricular systolic pressure is normal. RVSP is 29 mm of Hg , with RA mean of 5. Pulmonic Valve There is no pulmonic valvular stenosis. There is no pulmonic valvular regurgitation. Great Vessels The aortic root is normal size. Effusions There is no pericardial effusion. : LIDIA YAP > Natalie Grover
[2016-11-19] MEDS: QUETIAPINE FUMARATE 100 MG TABLET PO SCH (21:18)
[2016-11-20 05:22] LABS: ABSOLUTE BASOPHILS # (AUTO) 0.1 10^3/uL (0.0-0.2); ABSOLUTE LYMPHOCYTES (AUTO) 1.3 10^3/uL (0.5-4.7); ABSOLUTE MONOCYTES (AUTO) 1.1 10^3/uL (0.1-1.4); ABSOLUTE NEUT (AUTO) 9.7 10^3/uL (1.7-8.2); BASOPHILS % (AUTO) 0.9 % (0-2); EOSINOPHILS % (AUTO) 0.2 % (0-6); HEMATOCRIT 45.8 % (37.9-51.0); HEMOGLOBIN 14.5 g/dL (13.5-17.0); HGB HCT DIFFERENCE -2.3; LYMPHOCYTES % (AUTO) 10.7 % (13-45); MEAN CORPUSCULAR HEMOGLOBIN 27.2 pg (27.0-33.4); MEAN CORPUSCULAR HGB CONC 31.6 g/dL (32.0-36.0); MEAN CORPUSCULAR VOLUME 86 fl (80-97); MONOCYTES % (AUTO) 8.6 % (3-13); RED BLOOD COUNT 5.32 10^6/uL (4.35-5.55); RED CELL DISTRIBUTION WIDTH 13.2 % (11.5-14.0); SEGMENTED NEUTROPHILS % (AUTO) 79.6 % (42-78); WHITE BLOOD COUNT 12.2 10^3/uL (4.0-10.5)
[2016-11-20] MEDS: HYDRALAZINE HCL 50 MG TABLET PO SCH (05:28)
[2016-11-20 05:37] LABS: ANION GAP 15 (5-19); BLOOD UREA NITROGEN 18 mg/dL (7-20); CALCIUM 9.5 mg/dL (8.4-10.2); CARBON DIOXIDE 21 mmol/L (22-30); CHLORIDE 107 mmol/L (98-107); CREATININE RESULT 1.23 mg/dL (0.52-1.25); GLUCOSE 114 mg/dL (75-110); POTASSIUM 3.5 mmol/L (3.6-5.0)
[2016-11-20 08:18] VITALS: BP 123/73
[2016-11-20] MEDS: ENOXAPARIN SODIUM INJ 40 MG/0.4 ML DISP.SYRIN SUBCUT SCH (09:44)
[2016-11-20] MEDS: METOPROLOL SUCCINATE 50 MG TAB.SR.24H PO SCH (09:45)
[2016-11-20] MEDS: DOCUSATE SODIUM 100 MG CAPSULE PO SCH (09:45)
[2016-11-20] MEDS: FUROSEMIDE INJ/PF 40 MG/4 ML SDV IV SCH (09:46)
[2016-11-20] MEDS: ENALAPRIL MALEATE 5 MG TABLET PO SCH (09:46)
[2016-11-20] MEDS: TAMSULOSIN HCL 0.4 MG CAP.SR.24H PO SCH (09:47)
[2016-11-20] MEDS: ROFLUMILAST 500 MCG TABLET PO SCH (09:48)
--- NOTE | 2016-11-20 13:59 | PDOC DISCHARGE SUMMARY ---
General - Admit/Disc Date/PCP Admission Date/Primary Care Provider: 11/18/16 17:45 LIDIA YAP MD Discharge Date: 11/20/16 - Discharge Diagnosis (1) Congestive heart failure, acute Is this a current diagnosis for this admission?: YesSummary: Acute on chronic diastolic congestive heart failure (2) Hypertension Is this a current diagnosis for this admission?: Yes (3) Acute exacerbation of chronic obstructive airways disease Is this a current diagnosis for this admission?: Yes (4) Paroxysmal a-fib Is this a current diagnosis for this admission?: Yes - Additional Information Resuscitation Status: Full Code Discharge Diet: Cardiac Discharge Activity: Activity As Tolerated Home Medications: Quetiapine Fumarate [Seroquel 100 mg Tablet] 100 mg PO QHS 11/18/16 Roflumilast [Daliresp 500 mcg Tablet] 500 mcg PO DAILY 11/18/16 Tamsulosin HCl [Flomax 0.4 mg Cap.sr] 0.4 mg PO DAILY 11/18/16 Enalapril Maleate [Vasotec 5 mg Tablet] 5 mg PO Q12 #60 tablet 11/20/16 Furosemide [Lasix] 40 mg PO DAILY #30 tablet 11/20/16 Hydralazine HCl [Apresoline 50 mg Tablet] 50 mg PO Q8 #90 tablet 11/20/16 Metoprolol Succinate [Toprol Xl 50 mg Tab.sr] 50 mg PO DAILY #30 tab.sr.24h 12/30 History of Present Illness History of Present Illness: TREY DAWSON is a 66 year old male with a history of severe COPD and paroxysmal atrial fibrillation who presented with a 48 hour history of generalized weakness, shortness of breath, orthopnea and PND. Patient was found to have very elevated blood pressures and chest x-ray showed pulmonary edema. [place]buckle he most likely has acute diastolic dysfunction secondary to uncontrolled hypertension. He is admitted for further treatment. Hospital Course Hospital Course: 66-year-old gentleman with severe COPD who presented with shortness of breath, orthopnea and PND. Patient was found to have acute congestive heart failure. Echocardiogram confirmed that he has diastolic dysfunction with a normal ejection fraction. Patient had been treated with Lasix and controlled his blood pressures and his shortness of breath quickly resolved. On the day of discharge he was back to his baseline respiratory status. The patient's blood pressure also is now under good control. The patient had an echocardiogram which shows him to have a normal ejection fraction but does have diastolic dysfunction. Patient's other medical problems were stable during this hospitalization Physical Exam Vital Signs: Temp Pulse Resp BP Pulse Ox 98.6 F 100 18 123/73 98 11/20/16 10:40 11/20/16 10:40 11/20/16 10:40 11/20/16 10:40 11/20/16 10:40 Intake & Output 11/19/16 11/20/16 11/21/16 06:59 06:59 06:59 Intake Total 250 383 Output Total 150 Balance 250 233 Weight 64.3 kg 63.4 kg General appearance: PRESENT: no acute distress Eye exam: PRESENT: conjunctiva pink. ABSENT: scleral icterus Mouth exam: PRESENT: moist, tongue midline Neck exam: ABSENT: JVD Respiratory exam: PRESENT: clear to auscultation gera. ABSENT: rales, rhonchi, wheezes Cardiovascular exam: PRESENT: RRR. ABSENT: diastolic murmur, rubs, systolic murmur GI/Abdominal exam: PRESENT: normal bowel sounds, soft. ABSENT: distended, guarding, mass, organolmegaly, rebound, tenderness Extremities exam: ABSENT: calf tenderness, clubbing, pedal edema Neurological exam: PRESENT: alert, awake, oriented to person, oriented to place , oriented to time, oriented to situation, CN II-XII grossly intact, motor sensory deficit - Left sided weakness Psychiatric exam: PRESENT: appropriate affect Skin exam: PRESENT: dry, intact, warm. ABSENT: cyanosis, rash Results Laboratory Results: 11/20/16 03:59 11/20/16 03:59 11/20/16 11/20/16 03:59 03:59 WBC 12.2 H RBC 5.32 Hgb 14.5 Hct 45.8 MCV 86 MCH 27.2 MCHC 31.6 L RDW 13.2 Plt Count 215 Seg Neutrophils % 79.6 H Lymphocytes % 10.7 L Monocytes % 8.6 Eosinophils % 0.2 Basophils % 0.9 Absolute Neutrophils 9.7 H Absolute Lymphocytes 1.3 Absolute Monocytes 1.1 Absolute Eosinophils 0.0 Absolute Basophils 0.1 Sodium 143.0 Potassium 3.5 L Chloride 107 Carbon Dioxide 21 L Anion Gap 15 BUN 18 Creatinine 1.23 Est GFR ( Amer) > 60 Est GFR (Non-Af Amer) 59 L Glucose 114 H Calcium 9.5 11/18/16 11/18/16 11/19/16 18:20 18:20 00:15 Creatine Kinase 194 H 222 H CK-MB (CK-2) 1.22 Troponin I < 0.012 NT-Pro-B Natriuret Pep 11/19/16 11/19/16 11/19/16 00:15 06:01 06:01 Creatine Kinase 200 H CK-MB (CK-2) 1.06 0.97 Troponin I < 0.012 < 0.012 NT-Pro-B Natriuret Pep 2880 H Impressions: Chest X-Ray 11/18/16 11:16 IMPRESSION: Mild chronic interstitial changes versus mild recurrent pulmonary edema. Head CT 11/18/16 11:29 IMPRESSION: 1. No acute abnormality. 2. Chronic white matter changes right greater than left likely chronic ischemic disease. 3. Atrophy Qualifiers PATEINT BEING DISCHARGED WITH ANY OF THE FOLLOWING DIAGNOSIS?: Heart Failure Plan Discharge Plan: Patient is to follow-up with his primary care doctor in 1 week. Time Spent: Greater than 30 Minutes
== END 2016-11-20 11:39 | disposition home or self-care (01) | DRG 292 ==
LOC: ER 10:55 → UNDOADMIN 16:29 → EH 16:29 → 3S 17:01 → EH 17:01 → 3S 17:45
PROVIDERS: ADMIT Internal Medicine; ATTEND Internal Medicine
DX: I50.33 Acute on chronic diastolic (congestive) heart failure (principal); J44.1 Chronic obstructive pulmonary disease with (acute) exacerbation; I48.0 Paroxysmal atrial fibrillation; I10 Essential (primary) hypertension; Z79.899 Other long term (current) drug therapy; F17.200 Nicotine dependence, unspecified, uncomplicated
CPT/HCPCS: 36415; 70450; 71010; 80048; 80053; 80061; 80076; 80307; 81001; 82140; 82550; 82553; 82803; 83036; 83605; 83735; 83880; 84439; 84443; 84484; 85025; 85610; 85730; 93005; 93010; 93306; 96360; 99285; J1200; J1630; J1650; J1940; J3490; J7030

== ENCOUNTER 2016-11-25 06:12 | Emergency (ER) | payer MEDICAID ==
[2016-11-25] MEDS ORDERED: LIDOCAINE 2% URO-JET 5 ML KIT MM ONE (06:20)
--- NOTE | 2016-11-25 08:07 | ER Document Report ---
ED General - General Chief Complaint: Weakness Stated Complaint: WEAKNESS Time Seen by Provider: 11/25/16 06:23 TRAVEL OUTSIDE OF THE [place] IN LAST 30 DAYS: No - HPI Patient complains to provider of: Generalized weakness Notes: Patient coming in for evaluation of generalized weakness. Patient has a history of dementia and multiple falls. Most of the HPI is obtained from EMS and nursing report. Patient has had multiple visits by EMS due to falling out of the bed patient continues to try to get up out of bed and walk however patient is nonambulatory due to previous CVA. Upon my evaluation patient is alert although confused. - Related Data Allergies/Adverse Reactions: No Known Allergies Allergy (Verified 08/14/16 23:26) Past Medical History - Social History Smoking Status: Unknown if Ever Smoked Family History: CAD, COPD - Past Medical History Cardiac Medical History: Reports: Hx Atrial Fibrillation, Hx DVT, Hx Hypercholesterolemia, Hx Hypertension Pulmonary Medical History: Reports: Hx COPD Neurological Medical History: Reports: Hx Cerebrovascular Accident - clot, 2016 Renal/ Medical History: Denies: Hx Peritoneal Dialysis Psychiatric Medical History: Reports: Hx Depression - Immunizations Hx Diphtheria, Pertussis, Tetanus Vaccination: No Review of Systems - Review of Systems -: Yes ROS unobtainable due to patient's medical condition - Dementia Physical Exam - Vital signs Vitals: Temp Resp BP Pulse Ox 98.1 F 19 134/87 H 95 11/25/16 06:27 11/25/16 06:27 11/25/16 06:27 11/25/16 06:27 Interpretation: Normal - General General appearance: Appears well, Alert - HEENT Head: Normocephalic, Atraumatic Eyes: Normal Pupils: PERRL - Respiratory Respiratory status: No respiratory distress Chest status: Nontender Breath sounds: Normal Chest palpation: Normal - Cardiovascular Rhythm: Regular Heart sounds: Normal auscultation Murmur: No - Abdominal Inspection: Normal Distension: No distension Bowel sounds: Normal Tenderness: Nontender Organomegaly: No organomegaly - Back Back: Normal, Nontender - Extremities General upper extremity: Normal inspection, Nontender, Other - Healing laceration on right finger ring no signs of infection General lower extremity: Normal inspection, Nontender - Neurological Neuro grossly intact: Yes Sensory: Normal - Psychological Associated symptoms: Normal affect, Normal mood - Skin Skin Temperature: Warm Skin Moisture: Dry Skin Color: Normal Course - Re-evaluation Re-evalutation: 11/25/16 14:10 Laboratory studies on shows mild dehydration with elevation in the patient's renal function. Patient was given IV fluids here no other signs of any critical pathology. Patient case was discussed with our corporate planner who discussed options with family will discharge patient back on follow-up primary care physician for home health care assessment. - Vital Signs Vital signs: Temp Pulse Resp BP Pulse Ox 98.1 F 17 141/78 H 91 L 11/25/16 06:27 11/25/16 13:01 11/25/16 13:00 11/25/16 13:01 - Laboratory Result Diagrams: 11/25/16 07:50 11/25/16 07:50 Laboratory results interpreted by me: 11/25/16 11/25/16 07:50 07:50 WBC 11.5 H RBC 5.76 H MCHC 31.8 L Metamyelocytes % 1 H Abs Neuts (Manual) 9.0 H Sodium 145.5 H BUN 56 H Creatinine 1.64 H Est GFR ( Amer) 51 L Est GFR (Non-Af Amer) 42 L Glucose 112 H Calcium 10.3 H Total Bilirubin 1.5 H Creatine Kinase 527 H Total Protein 9.1 H Discharge - Discharge Clinical Impression: Weakness, Dehydration Condition: Good Disposition: HOME, SELF-CARE Instructions: Dehydration ([facility]), Weakness ([facility]) Additional Instructions: We have contacted your primary care provider to assess for home health. Please follow-up with your primary care provider. Return to the ER for any concerns.
[2016-11-25 08:15] LABS: HEMATOCRIT 49.7 % (37.9-51.0); HEMOGLOBIN 15.8 g/dL (13.5-17.0); HGB HCT DIFFERENCE -2.3; MEAN CORPUSCULAR HEMOGLOBIN 27.4 pg (27.0-33.4); MEAN CORPUSCULAR HGB CONC 31.8 g/dL (32.0-36.0); MEAN CORPUSCULAR VOLUME 86 fl (80-97); RED BLOOD COUNT 5.76 10^6/uL (4.35-5.55); RED CELL DISTRIBUTION WIDTH 13.5 % (11.5-14.0); WHITE BLOOD COUNT 11.5 10^3/uL (4.0-10.5)
--- NOTE | 2016-11-25 08:15 | EKG REPORT ---
SEVERITY:- ABNORMAL ECG - SINUS RHYTHM LEFT VENTRICULAR HYPERTROPHY : Confirmed by: Anup Powers MD 25-Nov-2016 08:14:44
[2016-11-25 08:29] LABS: ALANINE AMINOTRANSFERASE 40 U/L (21-72); ALBUMIN 4.3 g/dL (3.5-5.0); ALKALINE PHOSPHATASE 102 U/L (38-126); ANION GAP 16 (5-19); ASPARTATE AMINO TRANSFERASE 41 U/L (17-59); BILIRUBIN,DIRECT 0.4 mg/dL (0.0-0.4); BILIRUBIN,TOTAL 1.5 mg/dL (0.2-1.3); BLOOD UREA NITROGEN 56 mg/dL (7-20); CALCIUM 10.3 mg/dL (8.4-10.2); CARBON DIOXIDE 23 mmol/L (22-30); CHLORIDE 107 mmol/L (98-107); CREATINE KINASE 527 U/L (55-170); CREATININE RESULT 1.64 mg/dL (0.52-1.25); GLUCOSE 112 mg/dL (75-110); SODIUM 145.5 mmol/L (137-145); TOTAL PROTEIN 9.1 g/dL (6.3-8.2)
[2016-11-25 08:37] LABS: APPEARANCE,URINE CLEAR; BILIRUBIN,URINE NEGATIVE (NEGATIVE); GLUCOSE, URINE NEGATIVE (NEGATIVE); KETONES,URINE NEGATIVE (NEGATIVE); LEUKOCYTE ESTERASE,URINE NEGATIVE (NEGATIVE); NITRITE,URINE NEGATIVE (NEGATIVE); PROTEIN,URINE NEGATIVE (NEGATIVE); URINE SPECIFIC GRAVITY 1.014; UROBILINOGEN,URINE NEGATIVE mg/dL (<2.0)
[2016-11-25 08:47] LABS: CREATINE KINASE MB 2.27 ng/mL (<4.55)
[2016-11-25 08:50] LABS: TROPONIN I < 0.012 ng/mL
[2016-11-25 08:59] LABS: BASOPHILS % (MANUAL) 0 % (0-2); EOSINOPHILS % (MANUAL) 3 % (0-6); LYMPHOCYTES % (MANUAL) 14 % (13-45); ROULEAUX SLIGHT; TOTAL CELLS COUNTED 100; TOXIC GRANULATION SLIGHT; TOXIC VACUOLATION PRESENT
[2016-11-25] MEDS ORDERED: NORMAL SALINE 500 ML IV ONE (09:16)
[2016-11-25 13:08] VITALS: BP 141/78
== END 2016-11-25 13:19 | disposition home or self-care (01) ==
LOC: ER 06:12
DX: E86.0 Dehydration (principal); R53.1 Weakness; F03.90 Unspecified dementia, unspecified severity, without behavioral disturbance, psychotic disturbance, mood disturbance, and anxiety
CPT/HCPCS: 93005; 99285; 96360; 51701; 36415; 82553; 82550; 85025; 80053; 81001; 84484; 93010; J7040; J3490

== ENCOUNTER 2016-12-28 17:50 | Emergency (ER) | payer MEDICAID, MEDICARE ==
--- NOTE | 2016-12-28 18:31 | ER Document Report ---
ED General - General Chief Complaint: General Weakness Stated Complaint: WEAKNESS Time Seen by Provider: 12/28/16 18:23 Notes: Patient is a 66-year-old male with a past medical history of a prior CVA with baseline left-sided hemiplegia, dementia, hypertension, prior alcoholism who presents by EMS with "feeling weird". Patient is a very poor historian, has difficulty telling me why he is here in the emergency department to what his immediate concern is. He initially tells me that his left-sided weakness is new although EMS reports the family was very clear that this is been present for years. Family also did contact us and notify us that the patient had been drinking today, had 3 beers in the span of several hours and then began to complain that he felt dizzy. This prompted him to call 911. Family was opposed him coming to the emergency department and EMS likewise had recommended that patient would not likely require transfer but patient wanted to come anyhow. The remainder of the history is unable to be obtained secondary to patient's status as a very poor historian. TRAVEL OUTSIDE OF THE [place] IN LAST 30 DAYS: No - Related Data Allergies/Adverse Reactions: No Known Allergies Allergy (Verified 08/14/16 23:26) Past Medical History - General Information source: Patient - Social History Smoking Status: Former Smoker Frequency of alcohol use: Occasional Drug Abuse: None Lives with: Family Family History: CAD, COPD - Past Medical History Cardiac Medical History: Reports: Hx Atrial Fibrillation, Hx DVT, Hx Hypercholesterolemia, Hx Hypertension Pulmonary Medical History: Reports: Hx COPD Neurological Medical History: Reports: Hx Cerebrovascular Accident - clot, 2016 Renal/ Medical History: Denies: Hx Peritoneal Dialysis Psychiatric Medical History: Reports: Hx Depression - Immunizations Hx Diphtheria, Pertussis, Tetanus Vaccination: No Review of Systems - Review of Systems Notes: Constitutional: Negative for fever. HENT: Negative for sore throat. Eyes: Negative for visual changes. Cardiovascular: Negative for chest pain. Respiratory: Negative for shortness of breath. Gastrointestinal: Negative for abdominal pain, vomiting or diarrhea. Genitourinary: Negative for dysuria. Musculoskeletal: Negative for back pain. Skin: Negative for rash. Neurological: Negative for headaches, positive for baseline left-sided weakness 10 point ROS negative except as marked above and in HPI. Physical Exam - Vital signs Vitals: Resp Pulse Ox 21 H 96 12/28/16 18:05 12/28/16 18:05 Interpretation: Normal Notes: PHYSICAL EXAMINATION: GENERAL: Somewhat cachectic, frail but in no acute distress HEAD: Atraumatic, normocephalic. EYES: Pupils equal round and reactive to light, extraocular movements intact, sclera anicteric, conjunctiva are normal. ENT: nares patent, oropharynx clear without exudates. Moderately dry mucous membranes. NECK: Normal range of motion, supple without lymphadenopathy LUNGS: Breath sounds clear to auscultation bilaterally and equal. No wheezes rales or rhonchi. HEART: Regular rate and rhythm without murmurs ABDOMEN: Soft, nontender, normoactive bowel sounds. No guarding, no rebound. No masses appreciated. EXTREMITIES: Normal range of motion, no pitting or edema. No cyanosis. NEUROLOGICAL: Baseline Left-sided hemiplegia. Face symmetric. Tongue protrudes midline. Extraocular motions intact. Pupils are 2 mm and equally reactive. ch, normal gait. 5 out of 5 strength in both the distal and proximal upper and lower right side. Sensation is grossly intact throughout. PSYCH: Seems somewhat confused, poor historian SKIN: Warm, Dry, normal turgor, no rashes or lesions noted. Course - Re-evaluation Re-evalutation: 12/28/16 18:31 Presentation and an overall well-appearing patient in no acute distress who complains of generalized weakness. He has baseline left sided hemiplegia. At time of evaluation, patient's vitals are within normal limits and they are denying any additional acute complaints. Physical examination without focal findings. No new neurologic deficits. They deny any chest pain, shortness of breath, nausea, vomiting, or diarrhea. No dysuria or fever. Basic laboratories including and urinalysis are unremarkable. Troponin is also negative. Low clinical suspicion for ACS, occult pneumonia, acute intra- abdominal pathology, stroke, or transient ischemic attack based on clinical history, examination, and laboratories. They have tolerated oral intake without difficulty. I have discussed the importance of close outpatient follow- up as well as the need to return to emergency room immediately should they have any new or worsening symptoms. The patient and surrogate's are in agreement with this plan and verbalized indications for return to emergency department. - Vital Signs Vital signs: Temp Pulse Resp BP Pulse Ox 16 176/103 H 96 12/28/16 21:40 12/28/16 21:40 12/28/16 22:00 - Laboratory Result Diagrams: 12/28/16 18:10 12/28/16 19:15 Laboratory results interpreted by me: 12/28/16 12/28/16 18:10 19:15 Hgb 12.4 L Total Protein 8.5 H Discharge - Discharge Clinical Impression: Alcohol abuse, Weakness Condition: Good Disposition: HOME, SELF-CARE Additional Instructions: Your labs are normal today. Your symptoms are likely secondary to drinking a moderate amount alcohol in a short period of time. Return if you develop chest pain, shortness of breath, fever greater than 101F, persistent vomiting, or any other symptoms that are worrisome to you.
[2016-12-28 18:32] LABS: ABSOLUTE BASOPHILS # (AUTO) 0.1 10^3/uL (0.0-0.2); ABSOLUTE EOSINOPHILS # (AUTO) 0.2 10^3/uL (0.0-0.6); ABSOLUTE LYMPHOCYTES (AUTO) 2.6 10^3/uL (0.5-4.7); ABSOLUTE MONOCYTES (AUTO) 0.7 10^3/uL (0.1-1.4); BASOPHILS % (AUTO) 1.1 % (0-2); EOSINOPHILS % (AUTO) 2.7 % (0-6); HEMATOCRIT 37.9 % (37.9-51.0); HEMOGLOBIN 12.4 g/dL (13.5-17.0); HGB HCT DIFFERENCE -0.7; MEAN CORPUSCULAR HEMOGLOBIN 28.2 pg (27.0-33.4); MEAN CORPUSCULAR HGB CONC 32.7 g/dL (32.0-36.0); MEAN CORPUSCULAR VOLUME 86 fl (80-97); MONOCYTES % (AUTO) 9.1 % (3-13); RED BLOOD COUNT 4.39 10^6/uL (4.35-5.55); RED CELL DISTRIBUTION WIDTH 13.1 % (11.5-14.0); SEGMENTED NEUTROPHILS % (AUTO) 53.1 % (42-78); WHITE BLOOD COUNT 7.6 10^3/uL (4.0-10.5)
[2016-12-28 19:50] LABS: ALANINE AMINOTRANSFERASE 32 U/L (21-72); ALBUMIN 4.1 g/dL (3.5-5.0); ALKALINE PHOSPHATASE 105 U/L (38-126); ANION GAP 13 (5-19); ASPARTATE AMINO TRANSFERASE 23 U/L (17-59); BILIRUBIN,DIRECT 0.4 mg/dL (0.0-0.4); BILIRUBIN,TOTAL 0.5 mg/dL (0.2-1.3); BLOOD UREA NITROGEN 12 mg/dL (7-20); CARBON DIOXIDE 24 mmol/L (22-30); CHLORIDE 104 mmol/L (98-107); CREATININE RESULT 0.98 mg/dL (0.52-1.25); GLUCOSE 79 mg/dL (75-110); POTASSIUM 4.5 mmol/L (3.6-5.0); TOTAL PROTEIN 8.5 g/dL (6.3-8.2)
[2016-12-28 20:43] LABS: APPEARANCE,URINE CLEAR; BILIRUBIN,URINE NEGATIVE (NEGATIVE); GLUCOSE, URINE NEGATIVE (NEGATIVE); KETONES,URINE NEGATIVE (NEGATIVE); LEUKOCYTE ESTERASE,URINE NEGATIVE (NEGATIVE); NITRITE,URINE NEGATIVE (NEGATIVE); PROTEIN,URINE NEGATIVE (NEGATIVE); URINE SPECIFIC GRAVITY 1.001; UROBILINOGEN,URINE NEGATIVE mg/dL (<2.0)
[2016-12-28 20:59] VITALS: BP 176/103
== END 2016-12-28 22:29 | disposition home or self-care (01) ==
LOC: ER 17:50
DX: F10.10 Alcohol abuse, uncomplicated (principal); R53.1 Weakness; R42 Dizziness and giddiness; I69.954 Hemiplegia and hemiparesis following unspecified cerebrovascular disease affecting left non-dominant side; F03.90 Unspecified dementia, unspecified severity, without behavioral disturbance, psychotic disturbance, mood disturbance, and anxiety; I10 Essential (primary) hypertension; I48.91 Unspecified atrial fibrillation; J44.9 Chronic obstructive pulmonary disease, unspecified; E78.00 Pure hypercholesterolemia, unspecified; Z86.718 Personal history of other venous thrombosis and embolism
CPT/HCPCS: 36415; 80053; 80201; 81001; 84484; 85025; 99285

== ENCOUNTER → 2017-01-26 | Outpatient (CLI) | payer MEDICAID ==
--- NOTE | 2017-01-26 17:17 | RADIOLOGY REPORT (SQ) ---
EXAM DESCRIPTION: CHEST PA/LATERAL COMPLETED DATE/TIME: 01/26/2017 5:08 pm REASON FOR STUDY: COUGH COMPARISON: 11/18/2016 EXAM PARAMETERS: NUMBER OF VIEWS: two views TECHNIQUE: Digital Frontal and Lateral radiographic views of the chest acquired. RADIATION DOSE: NA LIMITATIONS: none FINDINGS: LUNGS AND PLEURA: Interstitial markings are prominent but unchanged. There is minimal miguel ear atelectasis in the left base. No pleural effusions. No consolidation. No pneumothorax. MEDIASTINUM AND HILAR STRUCTURES: No masses or contour abnormalities. HEART AND VASCULAR STRUCTURES: Stable in appearance. There is no failure. BONES: No acute findings. HARDWARE: None in the chest. OTHER: No other significant finding. IMPRESSION: Prominent interstitial markings stable from November of this year. This most likely represe nts chronic interstitial lung disease. No acute findings. TECHNICAL DOCUMENTATION: JOB ID: [id number] [employer]- All Rights Reserved
--- NOTE | 2017-01-26 17:20 | RADIOLOGY REPORT (SQ) ---
EXAM DESCRIPTION: KNEE LEFT 4 VIEWS COMPLETED DATE/TIME: 01/26/2017 5:08 pm REASON FOR STUDY: BILATERAL PRIMARY OSTEOARTHRITIS OF KNEE,PAIN IN UNSPEC KNEE R05 COUGH M17.0 KONRAD ATERAL PRIMARY OSTEOARTHRITIS OF KNEE M25.569 PAIN IN UNSPECIFIED KNEE COMPARISON: None. NUMBER OF VIEWS: Four views. TECHNIQUE: AP, lateral, and both oblique radiographic images acquired of the left knee. LIMITATIONS: None. FINDINGS: MINERALIZATION: Normal. BONES: No acute fracture or dislocation. There is a large spur or bony overgrowth on inferior patell a at the origin of the patellar tendon. JOINT: There is a small amount fluid in the joint. Posterior spurs are present on the patella. SOFT TISSUES: No soft tissue swelling. No radio-opaque foreign body. OTHER: No other significant finding. IMPRESSION: 1. Patellofemoral degenerative joint changes. 2. There is a large inferior patellar spur as described TECHNICAL DOCUMENTATION: JOB ID: [id number] [employer]- All Rights Reserved
--- NOTE | 2017-01-26 17:21 | RADIOLOGY REPORT (SQ) ---
EXAM DESCRIPTION: KNEE RIGHT 4 VIEWS COMPLETED DATE/TIME: 01/26/2017 5:08 pm REASON FOR STUDY: BILATERAL PRIMARY OSTEOARTHRITIS OF KNEE,PAIN IN UNSPEC KNEE R05 COUGH M17.0 KONRAD ATERAL PRIMARY OSTEOARTHRITIS OF KNEE M25.569 PAIN IN UNSPECIFIED KNEE COMPARISON: None. NUMBER OF VIEWS: Four views. TECHNIQUE: AP, lateral, and both oblique radiographic images acquired of the right knee. LIMITATIONS: None. FINDINGS: MINERALIZATION: Normal. BONES: No acute fracture or dislocation. No worrisome bone lesions. JOINT: No effusion. SOFT TISSUES: No soft tissue swelling. No radio-opaque foreign body. OTHER: No other significant finding. IMPRESSION: NEGATIVE STUDY OF THE RIGHT KNEE. NO RADIOGRAPHIC EVIDENCE OF ACUTE INJURY. TECHNICAL DOCUMENTATION: JOB ID: [id number] [employer]- All Rights Reserved
== END ==
LOC: OD 16:11
PROVIDERS: ATTEND Internal Medicine
DX: R05 Cough (principal); M17.0 Bilateral primary osteoarthritis of knee; M25.562 Pain in left knee; M25.561 Pain in right knee
CPT/HCPCS: 71020

== ENCOUNTER → 2017-05-27 | Outpatient (CLI) | payer MEDICARE, MEDICAID ==
[2017-05-27 13:14] LABS: ABSOLUTE EOSINOPHILS # (AUTO) 0.1 10^3/uL (0.0-0.6); ABSOLUTE LYMPHOCYTES (AUTO) 2.4 10^3/uL (0.5-4.7); ABSOLUTE MONOCYTES (AUTO) 0.6 10^3/uL (0.1-1.4); ABSOLUTE NEUT (AUTO) 4.8 10^3/uL (1.7-8.2); BASOPHILS % (AUTO) 0.2 % (0-2); EOSINOPHILS % (AUTO) 1.5 % (0-6); HEMATOCRIT 40.8 % (37.9-51.0); HEMOGLOBIN 13.4 g/dL (13.5-17.0); LYMPHOCYTES % (AUTO) 30.3 % (13-45); MEAN CORPUSCULAR HEMOGLOBIN 28.3 pg (27.0-33.4); MEAN CORPUSCULAR HGB CONC 32.9 g/dL (32.0-36.0); MEAN CORPUSCULAR VOLUME 86 fl (80-97); MONOCYTES % (AUTO) 7.4 % (3-13); PLATELET COUNT 346 10^3/uL (150-450); RED BLOOD COUNT 4.74 10^6/uL (4.35-5.55); RED CELL DISTRIBUTION WIDTH 12.9 % (11.5-14.0); SEGMENTED NEUTROPHILS % (AUTO) 60.6 % (42-78); TOTAL CELLS COUNTED % (AUTO) 100 %; WHITE BLOOD COUNT 7.9 10^3/uL (4.0-10.5)
== END ==
LOC: OD 11:59
PROVIDERS: ATTEND Family Medicine Geriatric Medicine
DX: D64.9 Anemia, unspecified (principal); Z79.899 Other long term (current) drug therapy
CPT/HCPCS: 36415; 85025

== ENCOUNTER 2017-06-20 18:19 | Emergency (ER) | payer MEDICARE, MEDICAID ==
[2017-06-20 19:43] LABS: ABSOLUTE BASOPHILS # (AUTO) 0.1 10^3/uL (0.0-0.2); ABSOLUTE LYMPHOCYTES (AUTO) 0.9 10^3/uL (0.5-4.7); ABSOLUTE MONOCYTES (AUTO) 0.5 10^3/uL (0.1-1.4); ABSOLUTE NEUT (AUTO) 10.9 10^3/uL (1.7-8.2); BASOPHILS % (AUTO) 0.6 % (0-2); EOSINOPHILS % (AUTO) 0.1 % (0-6); HEMATOCRIT 38.3 % (37.9-51.0); HEMOGLOBIN 12.7 g/dL (13.5-17.0); LYMPHOCYTES % (AUTO) 7.5 % (13-45); MEAN CORPUSCULAR HGB CONC 33.1 g/dL (32.0-36.0); MEAN CORPUSCULAR VOLUME 85 fl (80-97); MONOCYTES % (AUTO) 3.7 % (3-13); PLATELET COUNT 302 10^3/uL (150-450); RED BLOOD COUNT 4.53 10^6/uL (4.35-5.55); RED CELL DISTRIBUTION WIDTH 13.3 % (11.5-14.0); SEGMENTED NEUTROPHILS % (AUTO) 88.1 % (42-78); TOTAL CELLS COUNTED % (AUTO) 100 %; WHITE BLOOD COUNT 12.4 10^3/uL (4.0-10.5)
[2017-06-20 19:55] LABS: ALANINE AMINOTRANSFERASE 19 U/L (21-72); ALBUMIN 4.1 g/dL (3.5-5.0); ALKALINE PHOSPHATASE 106 U/L (38-126); ANION GAP 11 (5-19); ASPARTATE AMINO TRANSFERASE 14 U/L (17-59); BILIRUBIN,DIRECT 0.4 mg/dL (0.0-0.4); BILIRUBIN,TOTAL 0.6 mg/dL (0.2-1.3); BLOOD UREA NITROGEN 18 mg/dL (7-20); CALCIUM 10.4 mg/dL (8.4-10.2); CARBON DIOXIDE 23 mmol/L (22-30); CHLORIDE 107 mmol/L (98-107); GLUCOSE 155 mg/dL (75-110); POTASSIUM 4.7 mmol/L (3.6-5.0); SODIUM 141.1 mmol/L (137-145); TOTAL PROTEIN 8.2 g/dL (6.3-8.2)
[2017-06-20] MEDS ORDERED: NORMAL SALINE 1000 ML 1,000 ML IV ONE ×2 (20:21→22:23)
[2017-06-20] MEDS ORDERED: ONDANSETRON HCL INJ/PF 4 MG/2 ML SDV IV ONE (20:21)
--- NOTE | 2017-06-20 21:09 | RADIOLOGY REPORT (SQ) ---
EXAM DESCRIPTION: CHEST SINGLE VIEW COMPLETED DATE/TIME: 06/20/2017 8:34 pm REASON FOR STUDY: fever COMPARISON: 2017 NUMBER OF VIEWS: One view. TECHNIQUE: Single frontal radiographic view of the chest acquired. LIMITATIONS: None. FINDINGS: LUNGS AND PLEURA: No opacities, masses or pneumothorax. No pleural effusion. MEDIASTINUM AND HILAR STRUCTURES: No masses. Contour normal. HEART AND VASCULAR STRUCTURES: Heart normal in size. Normal vasculature. BONES: No acute findings. HARDWARE: None in the chest. OTHER: No other significant finding. IMPRESSION: NO SIGNIFICANT RADIOGRAPHIC FINDING IN THE CHEST. TECHNICAL DOCUMENTATION: JOB ID: [id number] [employer]- All Rights Reserved
[2017-06-20 22:24] LABS: A TYPE INFLUENZA AG NEGATIVE (NEGATIVE); B INFLUENZA AG NEGATIVE (NEGATIVE)
--- NOTE | 2017-06-20 22:25 | ER Document Report ---
ED General - General Chief Complaint: Nausea/Vomiting Stated Complaint: VOMITING Time Seen by Provider: 06/20/17 20:20 Notes: Patient is a 66 year old male with a past medical history of CVA with baseline left-sided deficits, history of alcohol dependence, hypertension, A. fib, who presents with vomiting and absence of a bowel movement for at least 3-4 days. He has had yellow greenish vomit per the [id number] at the bedside. The patient himself is very poor historian, unable to provide significant details. He reports generalized abdominal cramping that is constant and unchanged over the last several days. Nothing improves or worsens his symptoms. He has no prior history of abdominal surgeries of bowel obstructions. The patient denies history of similar symptoms in the past. He has not seen his general doctor regarding today's concerns. No fever, cough, shortness of breath, chest pain, headache or neck pain. No melena or hematochezia. No hematemesis. TRAVEL OUTSIDE OF THE [place] IN LAST 30 DAYS: No - Related Data Allergies/Adverse Reactions: No Known Allergies Allergy (Verified 08/14/16 23:26) Past Medical History - General Information source: Patient, Relative - Social History Smoking Status: Never Smoker Chew tobacco use (# tins/day): No Frequency of alcohol use: Occasional Drug Abuse: None Lives with: Family Family History: CAD, COPD Patient has suicidal ideation: No Patient has homicidal ideation: No - Past Medical History Cardiac Medical History: Reports: Hx Atrial Fibrillation, Hx DVT, Hx Hypercholesterolemia, Hx Hypertension Pulmonary Medical History: Reports: Hx COPD Neurological Medical History: Reports: Hx Cerebrovascular Accident - clot, 2016 Renal/ Medical History: Denies: Hx Peritoneal Dialysis Psychiatric Medical History: Reports: Hx Depression - Immunizations Hx Diphtheria, Pertussis, Tetanus Vaccination: No Review of Systems - Review of Systems Notes: Constitutional: Negative for fever. HENT: Negative for sore throat. Eyes: Negative for visual changes. Cardiovascular: Negative for chest pain. Respiratory: Negative for shortness of breath. Gastrointestinal: Positive for abdominal cramping, vomiting, absence of bowel movement Genitourinary: Negative for dysuria. Musculoskeletal: Negative for back pain. Skin: Negative for rash. Neurological: Negative for headaches, weakness or numbness. 10 point ROS negative except as marked above and in HPI. Physical Exam - Vital signs Vitals: Resp Pulse Ox 22 H 97 06/20/17 18:32 06/20/17 18:32 Interpretation: Tachycardic Notes: PHYSICAL EXAMINATION: GENERAL: Appears chronically ill but in no acute distress HEAD: Atraumatic, normocephalic. EYES: Pupils equal round and reactive to light, extraocular movements intact, sclera anicteric, conjunctiva are normal. ENT: nares patent, oropharynx clear without exudates. Moderately dry mucous membranes. NECK: Normal range of motion, supple without lymphadenopathy LUNGS: Breath sounds clear to auscultation bilaterally and equal. No wheezes rales or rhonchi. HEART: Regular rate and rhythm without murmurs ABDOMEN: Soft, nontender, normoactive bowel sounds. No guarding, no rebound. No masses appreciated. Rectal: No gross blood. Significant stool impaction. EXTREMITIES: Normal range of motion, no pitting or edema. No cyanosis. NEUROLOGICAL: Baseline left-sided weakness, left-sided facial droop. PSYCH: Normal mood, normal affect. SKIN: Warm, Dry, normal turgor, no rashes or lesions noted. Course - Re-evaluation Re-evalutation: 06/20/17 22:24 Patient presents with vomiting and generalized abdominal pain without a bowel movement for the past 2 days. He is chronically ill in appearance but in no acute distress. Dry mucous membranes. Vitals are notable for tachycardia. No focal abdominal tenderness on palpation. Patient does wear diapers and apparently has also had increased urinary retention over the past several days. Laboratories on initial assessment are overall unremarkable. Will proceed with CT abdomen pelvis to further evaluate for possible acute bowel obstruction which is an elevated concern given his ileus vomiting per family report with absence of bowel movement for at least past 2 days. Alternative consideration would be an acute pyelonephritis which could present with persistent vomiting, dehydration and constitutional symptoms. Will reassess after CT abdomen pelvis is been completed as well as urinalysis that was been obtained 06/21/17 00:29 CT abdomen pelvis does not show any acute pathology other than fecal impaction. Digital rectal exam performed and patient is markedly impacted. I did perform perform rectal disimpaction and removed an extremely large quantity of stool. Will also administer a soapsuds and mineral oil enema. Will give additional IV fluids and ensure the patient can tolerate oral intake prior to discharge. - Vital Signs Vital signs: Temp Pulse Resp BP Pulse Ox 97.7 F 18 134/83 H 95 06/20/17 18:43 06/21/17 02:08 06/21/17 02:08 06/21/17 02:08 - Laboratory Result Diagrams: 06/20/17 19:30 06/20/17 19:30 Laboratory results interpreted by me: 06/20/17 06/20/17 06/20/17 19:30 19:30 22:30 WBC 12.4 H Hgb 12.7 L Seg Neutrophils % 88.1 H Lymphocytes % 7.5 L Absolute Neutrophils 10.9 H Glucose 155 H Calcium 10.4 H AST 14 L ALT 19 L Urine Protein 30 H Urine Urobilinogen 4.0 H - Diagnostic Test Radiology reviewed: Image reviewed, Reports reviewed Radiology results interpreted by me: 06/21/17 00:31 CT abdomen pelvis: No evidence of bowel obstruction, free air, or acute appendicitis Procedures - Additional Procedures Fecal disimpaction Time performed: 23:50 Notes: 06/21/17 01:33 Fecal disimpaction performed at the bedside by me. Total procedure time 10 minutes. Discharge - Discharge Clinical Impression: Impacted stool in intestine Nausea and vomiting Qualifiers: Vomiting type: unspecified Vomiting Intractability: non-intractable Qualified Code(s): R11.2 - Nausea with vomiting, unspecified Condition: Fair Disposition: HOME, SELF-CARE Additional Instructions: Your vomiting is likely secondary to being severely constipated. For your constipation: You should take 8 caps of MiraLAX and placed in 1 liter of Gatorade. Drink one half of the solution and wait 4 hours. If you do not have a bowel movement take the remaining half of the solution. Please do continue on 2 capfuls of MiraLAX daily thereafter. Return if you have persistent vomiting, fever, severe headache, chest pain, or any other symptoms that are worrisome to you.
[2017-06-20 22:49] LABS: APPEARANCE,URINE CLEAR; BILIRUBIN,URINE NEGATIVE (NEGATIVE); COLOR,URINE YELLOW; GLUCOSE, URINE NEGATIVE (NEGATIVE); KETONES,URINE NEGATIVE (NEGATIVE); LEUKOCYTE ESTERASE,URINE NEGATIVE (NEGATIVE); NITRITE,URINE NEGATIVE (NEGATIVE); PROTEIN,URINE 30 mg/dL (NEGATIVE); URINE SPECIFIC GRAVITY 1.021
--- NOTE | 2017-06-21 00:15 | RADIOLOGY REPORT (SQ) ---
EXAM DESCRIPTION: CT ABDOMEN AND PELVIS WITH CONTRAST CLINICAL HISTORY: vomiting, generalized abdominal pain COMPARISON: None Available. TECHNIQUE: CT of the abdomen and pelvis are performed during IV bolus administration of 83 mL of Isovue-370. DLP: 913.79 mGycm FINDINGS: Abdomen: There is motion artifact as well as beam hardening artifact from the left upper extremity overlying the abdomen. The liver has normal size and density. No intrahepatic mass or biliary dilatation. No calcified gallstones. The spleen, pancreas, and adrenal glands are unremarkable. The kidneys have normal size and contour without evidence of solid mass or hydronephrosis. Aortoiliac atherosclerosis. IVC is unremarkable. The portal vein patent. The proximal visceral and renal arteries are patent. No free intraperitoneal air. The stomach and duodenum have normal course. Pelvis: The prostate is not enlarged. Likely mixing artifact in the urinary bladder. No free pelvic fluid or lymphadenopathy. Large amount stool in the rectum. No dilated loops of large or small bowel. The visualized portions of the appendix have a normal appearance. Centrilobular and paraseptal emphysematous changes identified in the visualized lung bases. Degenerative change of the spine. No lytic osseous lesions. IMPRESSION: 1. No acute inflammatory or obstructive abnormality identified. 2. Large amount stool in the rectum. Correlation for fecal impaction. 3. Filling defects in the urinary bladder likely related to mixing artifact of excreted contrast. Correlation with urinalysis recommended. This exam was performed according to our departmental dose-optimization program, which includes automated exposure control, adjustment of the mA and/or kV according to patient size and/or use of iterative reconstruction technique.
[2017-06-21] MEDS ORDERED: MINERAL OIL ENEMA 133 ML PR ONE (00:29)
[2017-06-21] MEDS ORDERED: ONDANSETRON HCL INJ/PF 4 MG/2 ML SDV IV ONE (00:29)
[2017-06-21 02:06] VITALS: BP 134/83
== END 2017-06-21 02:15 | disposition home or self-care (01) ==
LOC: ER 18:19
DX: K56.41 Fecal impaction (principal); R11.2 Nausea with vomiting, unspecified; R10.84 Generalized abdominal pain; I10 Essential (primary) hypertension; I48.91 Unspecified atrial fibrillation; J44.9 Chronic obstructive pulmonary disease, unspecified; I69.954 Hemiplegia and hemiparesis following unspecified cerebrovascular disease affecting left non-dominant side; Z86.718 Personal history of other venous thrombosis and embolism
CPT/HCPCS: 96376; 99285; 51701; 96374; 36415; 85025; 80053; 81001; 87804; 71045; 74177; J3490; J2405 ×2; J7030

== ENCOUNTER 2017-07-28 04:33 | Emergency (ER) | payer MEDICARE, MEDICAID ==
[2017-07-28] MEDS ORDERED: FENTANYL CITRATE INJ/PF 100 MCG/2 ML AMPUL IV ONE ×2 (04:35→06:35)
[2017-07-28] MEDS ORDERED: NORMAL SALINE 500 ML IV ONE (04:36)
--- NOTE | 2017-07-28 04:41 | ER Document Report ---
Doctor's Note Notes: 07/28/17 04:38 I performed a quick triage evaluation the patient. Patient is a 67-year-old male who presents to abdominal pain and vomiting. Patient is a previous history of stroke and therefore has significant dysphasia. When I asked him where his pain is he points to his right upper quadrant. He does not give a whole lot more information that. He is able to nod his head yes or no. Paramedics gave me the number to his girlfriend, Mary, who is his power of appraisal specialist. Her number is [phone]. I did call and speak with her. She says that he has been having pain for about 2 days with some vomiting. She put on clear liquid diet today. Eventually give some crackers and he started to vomit again. She therefore called EMS and brought to the ER. Emesis has been yellowish in color. No blood in emesis. He is primary care doctors Dr. Saini. He is on Eliquis. Is on this because of the DVT back in 2016. No history of PE. On exam he does have some pain mostly of the upper abdomen and seems worse over right upper quadrant. He also has some mild diffuse pain. Abdomen is soft. He is in no distress. She is tachycardic. Paramedics said in the ambulance his heart was in the 90s but as soon as they pulled into the hospital his heart rate went to the 140s. Blood pressure is currently normal. Patient does not appear to be in any distress. I have ordered blood work as well as ultrasound the gallbladder. I have ordered some pain medicine. Patient received Zofran in the months. Paramedics said the tachycardia seemed to occur shortly after receiving the Zofran. EKG shows sinus tachycardia with a rate of 134 bpm. He does have a right bundle branch block. PA interval is within normal range. QRS duration and QTc intervals are prolonged. Old EKG for comparison is from November 25, 2016. 07/28/17 04:56 07/28/17 05:44 Patient's heart rate is now back into the 80s and 90s after receiving pain medicine. He is now off to get ultrasound of the gallbladder due to most of his pain being located right upper quadrant.
[2017-07-28 05:07] LABS: ABSOLUTE BASOPHILS # (AUTO) 0.1 10^3/uL (0.0-0.2); ABSOLUTE LYMPHOCYTES (AUTO) 2.2 10^3/uL (0.5-4.7); ABSOLUTE MONOCYTES (AUTO) 0.6 10^3/uL (0.1-1.4); ABSOLUTE NEUT (AUTO) 5.9 10^3/uL (1.7-8.2); BASOPHILS % (AUTO) 0.7 % (0-2); EOSINOPHILS % (AUTO) 0.6 % (0-6); HEMATOCRIT 39.7 % (37.9-51.0); HEMOGLOBIN 13.1 g/dL (13.5-17.0); LYMPHOCYTES % (AUTO) 24.8 % (13-45); MEAN CORPUSCULAR HEMOGLOBIN 27.8 pg (27.0-33.4); MEAN CORPUSCULAR VOLUME 84 fl (80-97); MONOCYTES % (AUTO) 6.4 % (3-13); PLATELET COUNT 221 10^3/uL (150-450); RED BLOOD COUNT 4.71 10^6/uL (4.35-5.55); RED CELL DISTRIBUTION WIDTH 13.7 % (11.5-14.0); SEGMENTED NEUTROPHILS % (AUTO) 67.5 % (42-78); TOTAL CELLS COUNTED % (AUTO) 100 %; WHITE BLOOD COUNT 8.7 10^3/uL (4.0-10.5)
--- NOTE | 2017-07-28 05:10 | RADIOLOGY REPORT (SQ) ---
EXAM DESCRIPTION: CHEST SINGLE VIEW CLINICAL HISTORY: 67 years Male, cough COMPARISON: 2.5.18 NUMBER OF VIEWS/TECHNIQUE: 1/AP LIMITATIONS: None. FINDINGS: Normal lung volume, clear parenchyma, normal cardiac silhouette, and intact bony thorax. IMPRESSION: No acute cardiopulmonary findings.
[2017-07-28 05:14] VITALS: BP 153/109
[2017-07-28 05:23] LABS: ALANINE AMINOTRANSFERASE 20 U/L (21-72); ALBUMIN 4.1 g/dL (3.5-5.0); ALKALINE PHOSPHATASE 101 U/L (38-126); ANION GAP 12 (5-19); ASPARTATE AMINO TRANSFERASE 24 U/L (17-59); BILIRUBIN,DIRECT 0.5 mg/dL (0.0-0.4); BILIRUBIN,TOTAL 0.7 mg/dL (0.2-1.3); BLOOD UREA NITROGEN 17 mg/dL (7-20); CALCIUM 9.8 mg/dL (8.4-10.2); CARBON DIOXIDE 26 mmol/L (22-30); CHLORIDE 105 mmol/L (98-107); GLUCOSE 151 mg/dL (75-110); LIPASE 26.4 U/L (23-300); POTASSIUM 3.8 mmol/L (3.6-5.0); SODIUM 142.5 mmol/L (137-145); TOTAL PROTEIN 8.7 g/dL (6.3-8.2)
--- NOTE | 2017-07-28 06:34 | ER Document Report ---
ED General - General Mode of Arrival: Ambulatory Information source: Patient, Relative TRAVEL OUTSIDE OF THE [place] IN LAST 30 DAYS: No <MEGAN PATRICK - Last Filed: 07/28/17 15:24> <SOPHIA COLLIER - Last Filed: 07/28/17 15:25> - General Chief Complaint: Nausea/Vomiting Stated Complaint: NAUSEA/VOMITING Time Seen by Provider: 07/28/17 04:35 Notes: Patient is a 67 year old male with a history of strokes presents to the emergency department complaining of multiple symptoms including nausea, vomiting and epigastric abdominal pain onset 2 days ago. Patient also complains of a small amount of hematemesis and diarrhea. Patient further denies trouble breathing, chest pain or a history of gallbladder or liver problems. Patient has difficulty speaking due to a prior stroke therefore most of the history was obtained from a relative. (MEGAN PATRICK) - Related Data Allergies/Adverse Reactions: No Known Allergies Allergy (Verified 08/14/16 23:26) Past Medical History - General Information source: Patient, Relative - Social History Smoking Status: Current Some Day Smoker Chew tobacco use (# tins/day): No Frequency of alcohol use: Rare Drug Abuse: None Family History: CAD, COPD Patient has suicidal ideation: No Patient has homicidal ideation: No - Past Medical History Cardiac Medical History: Reports: Hx Atrial Fibrillation, Hx DVT, Hx Hypercholesterolemia, Hx Hypertension Pulmonary Medical History: Reports: Hx COPD Neurological Medical History: Reports: Hx Cerebrovascular Accident - clot, 2016 Psychiatric Medical History: Reports: Hx Depression - Immunizations Hx Diphtheria, Pertussis, Tetanus Vaccination: No <MEGAN PATRICK - Last Filed: 07/28/17 15:24> Review of Systems - Review of Systems Constitutional: No symptoms reported EENT: No symptoms reported Cardiovascular: No symptoms reported Respiratory: No symptoms reported Gastrointestinal: See HPI, Abdominal pain, Diarrhea, Nausea, Vomiting Genitourinary: No symptoms reported Male Genitourinary: No symptoms reported Musculoskeletal: No symptoms reported Skin: No symptoms reported Hematologic/Lymphatic: No symptoms reported Neurological/Psychological: No symptoms reported <MEGAN PATRICK - Last Filed: 07/28/17 15:24> Physical Exam <MEGAN PATRICK - Last Filed: 07/28/17 15:24> <SOPHIA COLLIER - Last Filed: 07/28/17 15:25> - Vital signs Vitals: Resp Pulse Ox 21 H 95 07/28/17 04:41 07/28/17 04:41 - Notes Notes: GENERAL: Alert, interacts slowly, but makes himself understood. No acute distress. HEAD: Normocephalic, atraumatic. EYES: Pupils equal, round, and reactive to light. Extraocular movements intact. ENT: Oral mucosa moist, tongue midline. NECK: Full range of motion. Supple. Trachea midline. LUNGS: Clear to auscultation bilaterally, no wheezes, rales, or rhonchi. No respiratory distress. HEART: Tachycardic which normalized during exam. Regular rate and rhythm. No murmurs, gallops, or rubs. ABDOMEN: Soft, non-tender. Non-distended. Bowel sounds present in all 4 quadrants. EXTREMITIES: Weakness in the LUE with contractions. No edema, radial and dorsalis pedis pulses 2/4 bilaterally. No cyanosis. NEUROLOGICAL: Alert and oriented x3. Difficulty speaking, speech is slow and slurred. PSYCH: Normal affect, normal mood. SKIN: Warm, dry, normal turgor. No rashes or lesions noted. (MEGAN PATRICK) Course - Laboratory Result Diagrams: 07/28/17 04:50 07/28/17 04:50 <MEGAN PATRICK - Last Filed: 07/28/17 15:24> - Laboratory Result Diagrams: 07/28/17 04:50 07/28/17 04:50 <SOPHIA COLLIER - Last Filed: 07/28/17 15:25> - Re-evaluation Re-evalutation: 07/28/17 09:26 Spoke with POA, agrees to discharge plan and treatment plan. Agrees to bring patient back if pain and vomiting worsens. (MEGAN PATRICK) 07/28/17 09:29 CBC does not show leukocytosis, mild anemia with hemoglobin 13.1, CMP grossly unremarkable, slightly elevated glucose at 151, troponin negative, lipase normal , chest x-ray shows no acute process, abdominal ultrasound is negative for any acute obstruction or infection. Patient's pain is now well controlled, initially received a dose of fentanyl around 4:00 in the morning, requested a second dose when I saw him around 6 AM however he never actually got this dose as he was sleeping and no longer had knee pain. Patient has been rechecked, is not having any pain, has been able to drink half a glass of water without any further nausea or vomiting. No evidence of dehydration or infection at this time. Patient will be discharged home. I discussed the discharge plan with Mary his power of personal injury attorney who is agreeable to the patient being discharged back to home with a prescription for Zofran. She will return for persistent vomiting, worsening pain, fevers or any new or concerning symptoms. (SOPHIA COLLIER) - Vital Signs Vital signs: Temp Pulse Resp BP Pulse Ox 97.4 F 135 H 16 153/109 H 92 07/28/17 04:43 07/28/17 04:43 07/28/17 09:39 07/28/17 09:39 07/28/17 09:39 - Laboratory Laboratory results interpreted by me: 07/28/17 07/28/17 04:50 04:50 Hgb 13.1 L Glucose 151 H Direct Bilirubin 0.5 H ALT 20 L Total Protein 8.7 H - EKG Interpretation by Me Additional EKG results interpreted by me: 07/28/17 09:30 Initial EKG on arrival showed sinus tachycardia at a rate of 134, LVH, left axis deviation, left anterior hemiblock, slight ST segment depressions noted in V3 and V4 likely rate related, per my interpretation. Repeat EKG shows sinus rhythm at a rate of 95 with multiple PACs, left axis deviation persists, rate related ST segment depressions have resolved, right bundle branch block persists, left anterior hemiblock has resolved, no ischemic changes per my interpretation. (SOPHIA COLLIER) Discharge <MEGAN PATRICK - Last Filed: 07/28/17 15:24> <SOPHIA COLLIER - Last Filed: 07/28/17 15:25> - Discharge Clinical Impression: Epigastric abdominal pain of unknown etiology Nausea and vomiting Qualifiers: Vomiting type: unspecified Vomiting Intractability: intractable Qualified Code( s): R11.2 - Nausea with vomiting, unspecified Hypertension Qualifiers: Hypertension type: essential hypertension Qualified Code(s): I10 - Essential ( primary) hypertension Condition: Stable Disposition: HOME, SELF-CARE Additional Instructions: Vomiting Vomiting (or nausea without vomiting) can be caused by many other different problems. It can mean that something's wrong with the stomach, such as ulcers or inflammation or the intestinal tract, such as appendicitis. But it can also be a symptom of a problem that has nothing to do with the stomach or intestines. Vomiting is common with severe headaches, earaches, tonsillitis, and kidney infections, etc. We see it with pneumonia or heart attacks. Drugs can cause nausea and vomiting. Many abdominal problems cause vomiting; for example, gallstones, kidney stones, pancreatitis, and intestinal obstruction ( blocked bowels). In most cases, curing the vomiting depends on fixing the problem that caused it. For temporary relief, we may use an anti-nausea medicine. For home use, we can prescribe suppositories, chewable pills, pills that dissolve in the mouth, or liquid anti-nausea drugs. If the vomiting seems to be caused by a problem in the stomach, acid-suppressing drugs may be prescribed as well. It's important to avoid dehydration. Sip small amounts of clear liquids ( soft drinks, tea, broth, etc) . Try to take fluids frequently even if you are vomiting to prevent dehydration. Take increasing amounts of fluid and when liquids are being consumed successfully, advance to small amounts of bland food (toast, soups, mashed potatoes, etc.) until you are able to resume a regular diet. Avoid aspirin, tobacco, and alcohol. If the vomiting worsens, if the problem that's making you vomit worsens, or if there's evidence of bleeding in the stomach (such as black, tarry stool, or bloody or black vomit), you should return immediately. Also, return if abdominal pain worsens or becomes localized to one area or you develop high fever. Call your doctor if you aren't improved in 24 hours. I prescribed Zofran, this can help with your vomiting. Please return for fevers , worsening pain or if the Zofran does not help your vomiting. Prescriptions: Ondansetron [Zofran Odt 4 mg Tablet] 1 - 2 tab PO Q4H PRN #15 tab.rapdis PRN Reason: For Nausea/Vomiting Referrals: CHEVY AMADOR MD [COMMUNITY BASED STAFF] - Follow up in 3-5 days Scribe Attestation: 07/28/17 15:25 I personally performed the services described in the documentation, reviewed and edited the documentation which was dictated to the scribe in my presence, and it accurately records my words and actions. (SOPHIA COLLIER) Scribe Documentation - Scribe Written by Glenibe:: Martha Cuellar, 07/28/2017 07:13 acting as scribe for :: Marissa <MEGAN PATRICK - Last Filed: 07/28/17 15:24>
--- NOTE | 2017-07-28 06:48 | RADIOLOGY REPORT (SQ) ---
EXAM DESCRIPTION: U/S ABDOMEN LTD W/DOPPLER CLINICAL HISTORY: 67 years, Male, RUQ abdominal pain COMPARISON: CT, 06/20/2017. LIMITATIONS: As below. FINDINGS: Gallbladder, negative sonographic Flower's test, hepatobiliary ductal system including a 0.6 cm diameter common bile duct, pancreas, partially obscured aorta, liver, 9 cm right kidney appear otherwise unremarkable. No ascites. IMPRESSION: No acute findings.
--- NOTE | 2017-07-28 07:09 | EKG REPORT ---
SEVERITY:- ABNORMAL ECG - SINUS RHYTHM WITH FREQUENT PACS. RIGHT BUNDLE BRANCH BLOCK PROBABLE LEFT VENTRICULAR HYPERTROPHY : Confirmed by: Anup Powers MD 28-Jul-2017 07:09:01
--- NOTE | 2017-07-28 07:10 | EKG REPORT ---
SEVERITY:- ABNORMAL ECG - SINUS TACHYCARDIA RBBB AND LAFB PROBABLE LEFT VENTRICULAR HYPERTROPHY : Confirmed by: Anup Powers MD 28-Jul-2017 07:09:39
== END 2017-07-28 10:14 | disposition home or self-care (01) ==
LOC: ER 04:33
DX: K92.0 Hematemesis (principal); R19.7 Diarrhea, unspecified; R10.13 Epigastric pain; R00.0 Tachycardia, unspecified; D64.9 Anemia, unspecified; I45.10 Unspecified right bundle-branch block; I10 Essential (primary) hypertension; J44.9 Chronic obstructive pulmonary disease, unspecified; F17.200 Nicotine dependence, unspecified, uncomplicated; R47.81 Slurred speech; I69.398 Other sequelae of cerebral infarction; I49.1 Atrial premature depolarization
CPT/HCPCS: 93005; 99285; 96361; 96374; 36415; 83690; 85025; 80053; 84484; 71045; 76705; 93976; 93010; J3010; J7040

== ENCOUNTER 2017-08-05 11:13 | Inpatient (IN) | payer MEDICARE, MEDICAID ==
[2017-08-05] MEDS ORDERED: ACETAMINOPHEN 325 MG TABLET PO ONE (12:20)
[2017-08-05] MEDS ORDERED: CEFTRIAXONE 1 GM/D5W RTU 50 ML IV ONE (12:20)
[2017-08-05] MEDS ORDERED: LIDOCAINE 2% URO-JET 5 ML KIT MM ONE (12:20)
[2017-08-05] MEDS ORDERED: NORMAL SALINE 1000 ML 1,000 ML IV ONE ×2 (12:20→13:09)
[2017-08-05] MEDS ORDERED: AZITHROMYCIN INJ 500 MG VIAL IV ONE (12:20)
[2017-08-05 12:38] LABS: ABSOLUTE BASOPHILS # (AUTO) 0.1 10^3/uL (0.0-0.2); ABSOLUTE LYMPHOCYTES (AUTO) 0.9 10^3/uL (0.5-4.7); ABSOLUTE MONOCYTES (AUTO) 0.7 10^3/uL (0.1-1.4); BASOPHILS % (AUTO) 0.7 % (0-2); EOSINOPHILS % (AUTO) 0.1 % (0-6); HEMATOCRIT 45.8 % (37.9-51.0); HEMOGLOBIN 14.7 g/dL (13.5-17.0); LYMPHOCYTES % (AUTO) 6.4 % (13-45); MEAN CORPUSCULAR HEMOGLOBIN 27.4 pg (27.0-33.4); MEAN CORPUSCULAR HGB CONC 32.2 g/dL (32.0-36.0); MEAN CORPUSCULAR VOLUME 85 fl (80-97); MONOCYTES % (AUTO) 5.1 % (3-13); PLATELET COUNT 348 10^3/uL (150-450); RED BLOOD COUNT 5.37 10^6/uL (4.35-5.55); RED CELL DISTRIBUTION WIDTH 13.8 % (11.5-14.0); SEGMENTED NEUTROPHILS % (AUTO) 87.7 % (42-78); TOTAL CELLS COUNTED % (AUTO) 100 %; WHITE BLOOD COUNT 13.7 10^3/uL (4.0-10.5)
[2017-08-05 12:40] LABS: VENOUS BLOOD BASE EXCESS -1.2 mmol/L; VENOUS BLOOD HCO3 25.2 mmol/L (20-32); VENOUS BLOOD PCO2 47.7 mmHg (35-63); VENOUS BLOOD PH 7.34 (7.30-7.42)
[2017-08-05 12:44] LABS: INTERNATIONAL RATION (INR) 1.14; PROTHROMBIN TIME 15.4 SEC (11.4-15.4)
--- NOTE | 2017-08-05 12:46 | RADIOLOGY REPORT (SQ) ---
EXAM DESCRIPTION: CHEST SINGLE VIEW COMPLETED DATE/TIME: 08/05/2017 12:34 pm REASON FOR STUDY: septic COMPARISON: AP chest 07/28/2017, 06/20/2017, 11/18/2016 Two-view chest 01/26/2017 EXAM PARAMETERS: NUMBER OF VIEWS: One view. TECHNIQUE: Single frontal radiographic view of the chest acquired. RADIATION DOSE: NA LIMITATIONS: None. FINDINGS: LUNGS AND PLEURA: Low lung volumes. Minimal left basilar bandlike atelectasis. No fluffy alveolar infiltrates worrisome for edema or pneumonia. No pleural effusion. No pneumothorax. MEDIASTINUM AND HILAR STRUCTURES: No masses. Contour normal. HEART AND VASCULAR STRUCTURES: Heart normal in size. Normal vasculature. BONES: No acute findings. HARDWARE: None in the chest. OTHER: No other significant finding. IMPRESSION: NO ACUTE RADIOGRAPHIC FINDING IN THE CHEST. TECHNICAL DOCUMENTATION: JOB ID: [id number] [employer]- All Rights Reserved Reading location - IP/workstation name: [email or web address]
[2017-08-05 12:47] LABS: ALANINE AMINOTRANSFERASE 24 U/L (21-72); ALBUMIN 4.5 g/dL (3.5-5.0); ALKALINE PHOSPHATASE 121 U/L (38-126); ANION GAP 12 (5-19); ASPARTATE AMINO TRANSFERASE 28 U/L (17-59); BILIRUBIN,DIRECT 0.6 mg/dL (0.0-0.4); BLOOD UREA NITROGEN 32 mg/dL (7-20); CALCIUM 10.2 mg/dL (8.4-10.2); CARBON DIOXIDE 28 mmol/L (22-30); CHLORIDE 103 mmol/L (98-107); GLUCOSE 127 mg/dL (75-110); POTASSIUM 5.1 mmol/L (3.6-5.0); TOTAL PROTEIN 9.8 g/dL (6.3-8.2)
--- NOTE | 2017-08-05 13:14 | ER Document Report ---
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 Patient is at baseline mental status, according to EMS. He is unable to provide any additional history and unable to contact emergency contact TRAVEL OUTSIDE OF THE [place] IN LAST 30 DAYS: No - Related Data Allergies/Adverse Reactions: No Known Allergies Allergy (Verified 08/14/16 23:26) Past Medical History - General Information source: Patient - Social History Smoking Status: Current Every Day Smoker Family History: CAD, COPD Patient has suicidal ideation: No Patient has homicidal ideation: No - Past Medical History Cardiac Medical History: Reports: Hx Atrial Fibrillation, Hx DVT, Hx Hypercholesterolemia, Hx Hypertension Pulmonary Medical History: Reports: Hx COPD Neurological Medical History: Reports: Hx Cerebrovascular Accident - clot, 2016 Renal/ Medical History: Denies: Hx Peritoneal Dialysis Psychiatric Medical History: Reports: Hx Depression - Immunizations Hx Diphtheria, Pertussis, Tetanus Vaccination: No Review of Systems - Review of Systems -: Yes ROS unobtainable due to patient's medical condition Constitutional: Fever Respiratory: Cough Gastrointestinal: Nausea, Vomiting Physical Exam - Vital signs Vitals: Resp 22 H 08/05/17 11:35 - Notes Notes: PHYSICAL EXAMINATION: GENERAL: Well-appearing, well-nourished and in no acute distress. HEAD: Atraumatic, normocephalic. EYES: Pupils equal round and reactive to light, extraocular movements intact, sclera anicteric, conjunctiva are normal. ENT: nares patent, oropharynx clear without exudates. Moist mucous membranes. NECK: Normal range of motion, supple without lymphadenopathy LUNGS: Mild tachypnea. Crackles in left lower lobe. Rhonchi throughout lung cooney. HEART: Tachycardia, regular rhythm. ABDOMEN: Soft, nontender, normoactive bowel sounds. No guarding, no rebound. No masses appreciated. EXTREMITIES: Normal range of motion, no pitting or edema. No cyanosis. NEUROLOGICAL: Smiling, moving al 4 extremities. SKIN: Warm, Dry, normal turgor, no rashes or lesions noted. Course - Re-evaluation Re-evalutation: Patient arrives febrile, tachycardic and tachypneic with coughing, nausea and vomiting. His blood pressure is normal. Chest x-ray does not show any acute abnormalities and urinalysis is also normal. Because he was having some nausea and vomiting, CT abdomen pelvis was obtained, which shows evidence of a left lower lobe infiltrate. No recent hospitalizations, so will begin CAP Abx. Pt requires admission due to his persistent tachycardia, mild tachypnea and frail stature. PE is less likely at this time with a known infiltrate and fever, but will continue to monitor. He used to see Dr. Jamil, but he says that his new PMD is Dr. Wu. 08/05/17 15:[address] Jenkins (Hospitalist) and he will admit patient to Inpatient Tele for further evaluation and treatment. - Vital Signs Vital signs: Temp Pulse Resp BP Pulse Ox 98.0 F 145 H 26 H 113/84 96 08/05/17 12:00 08/05/17 11:37 08/05/17 13:01 08/05/17 13:00 08/05/17 13:01 - Laboratory Result Diagrams: 08/05/17 12:00 08/05/17 12:00 Laboratory results interpreted by me: 08/05/17 08/05/17 08/05/17 12:00 12:00 12:00 WBC 13.7 H Seg Neutrophils % 87.7 H Lymphocytes % 6.4 L Absolute Neutrophils 12.0 H Potassium 5.1 H BUN 32 H Creatinine 1.43 H Est GFR (Non-Af Amer) 49 L Glucose 127 H Lactic Acid 2.4 H Direct Bilirubin 0.6 H Total Protein 9.8 H Urine Urobilinogen 08/05/17 12:44 WBC Seg Neutrophils % Lymphocytes % Absolute Neutrophils Potassium BUN Creatinine Est GFR (Non-Af Amer) Glucose Lactic Acid Direct Bilirubin Total Protein Urine Urobilinogen 4.0 H - Diagnostic Test Radiology reviewed: Image reviewed, Reports reviewed Radiology results interpreted by me: CXR: NAD - EKG Interpretation by Me EKG shows normal: Sinus rhythm, [place], Intervals, QRS Complexes, ST-T Waves Rate: Tachycardia When compared to previous EKG there are: No significant change Discharge - Discharge Clinical Impression: Bronchitis Pneumonia Qualifiers: Pneumonia type: due to unspecified organism Laterality: left Lung location: lower lobe of lung Qualified Code(s): J18.1 - Lobar pneumonia, unspecified organism Sepsis Qualifiers: Sepsis type: sepsis due to unspecified organism Qualified Code(s): A41.9 - Sepsis, unspecified organism Condition: Stable Disposition: ADMITTED INPATIENT Admitting Provider: Shelli Jenkins
[2017-08-05 13:16] LABS: APPEARANCE,URINE SLIGHTLY-CLOUDY; BILIRUBIN,URINE NEGATIVE (NEGATIVE); COLOR,URINE DARK YELLOW; GLUCOSE, URINE NEGATIVE (NEGATIVE); KETONES,URINE NEGATIVE (NEGATIVE); LEUKOCYTE ESTERASE,URINE NEGATIVE (NEGATIVE); NITRITE,URINE NEGATIVE (NEGATIVE); PROTEIN,URINE NEGATIVE (NEGATIVE); URINE SPECIFIC GRAVITY 1.026
[2017-08-05] MEDS ORDERED: CEFTRIAXONE SODIUM 1,000 MG in NORMAL SALINE 100 ML IV ONE (14:00)
--- NOTE | 2017-08-05 14:34 | RADIOLOGY REPORT (SQ) ---
EXAM DESCRIPTION: CT ABD/PELVIS WITH IV ONLY COMPLETED DATE/TIME: 08/05/2017 2:07 pm REASON FOR STUDY: septic, N/V COMPARISON: CT abdomen pelvis 06/20/2017 TECHNIQUE: CT scan of the abdomen and pelvis performed using helical scanning technique with dynamic intravenous contrast injection. No oral contrast. Images reviewed with lung, soft tissue, and bone windows. Reconstructed coronal and sagittal MPR images reviewed. Delayed images for evaluation of the urinary system also acquired. All images stored on PACS. All CT scanners at this facility use dose modulation, iterative reconstruction, and/or weight based d osing when appropriate to reduce radiation dose to as low as reasonably achievable (ALARA). [facility]: Dose Right [facility]: CareDose [facility]: Dose Right [facility]: Teradose 4D [facility]: [employer] Logic CONTRAST TYPE AND DOSE: contrast/concentration: Isovue 370.00 mg/ml; Total Contrast Delivered: 80.0 ml; Total Saline Delivered: 66.0 ml RENAL FUNCTION: Creatinine 1.4 RADIATION DOSE: CT Rad equipment meets quality standard of care and radiation dose reduction techniq ues were employed. CTDIvol: 6.6 - 8.5 mGy. DLP: 811 mGy-cm.. LIMITATIONS: No oral contrast FINDINGS: LOWER CHEST: There is airspace disease in the left upper lobe adjacent to the major fissur e on axial images 1-7. This is worrisome for acute pneumonia. Chronic appearing atelectasis or scar ring is present in the left posterior costophrenic sulcus. No pleural effusion. LIVER: Normal size. No masses. No dilated ducts. SPLEEN: Normal size. No focal lesions. PANCREAS: No masses. No significant calcifications. No adjacent inflammation or peripancreatic fluid collections. Pancreatic duct not dilated. GALLBLADDER: No identified stones by CT criteria. No inflammatory changes to suggest cholecystitis. ADRENAL GLANDS: No significant masses or asymmetry. RIGHT KIDNEY AND URETER: No solid masses. No significant calcifications. No hydronephrosis or hyd roureter. LEFT KIDNEY AND URETER: No solid masses. No significant calcifications. No hydronephrosis or hydr oureter. AORTA AND VESSELS: No aneurysm. No dissection. Renal arteries, SMA, celiac without stenosis. RETROPERITONEUM: No retroperitoneal adenopathy, hemorrhage or masses. BOWEL AND PERITONEAL CAVITY: No masses or inflammatory changes. No free fluid or peritoneal masses. APPENDIX: Unremarkable PELVIS: No mass. No free fluid. Normal bladder. ABDOMINAL WALL: No masses. No hernias. BONES: No significant or acute findings. OTHER: Report called to Dr. Sheth in the emergency room IMPRESSION: Left upper lobe pneumonia at the upper edge of the field of view. Otherwise unremarkable CT abdomen and pelvis. TECHNICAL DOCUMENTATION: JOB ID: [id number] Quality ID # [id number]: Final reports with documentation of one or more dose reduction techniques (e.g., Au tomated exposure control, adjustment of the mA and/or kV according to patient size, use of iterative reconstruction technique) 2010 [employer]- All Rights Reserved Reading location - IP/workstation name: [email or web address]-[email or web address]
[2017-08-05] MEDS ORDERED: IPRATROPIUM/ALBUTEROL 0.5-2.5 MG/3 ML AMPUL NEB ONE (15:32)
[2017-08-05] MEDS ORDERED: IPRATROPIUM/ALBUTEROL 0.5-2.5 MG/3 ML AMPUL NEB PRN (15:59)
[2017-08-05] MEDS ORDERED: ONDANSETRON HCL INJ/PF 4 MG/2 ML SDV IV PRN (16:10)
[2017-08-05] MEDS ORDERED: ACETAMINOPHEN 325 MG TABLET PO PRN (16:10)
[2017-08-05] MEDS ORDERED: RINGERS SOLUTION,LACTATED 1,000 ML IV PRN (16:19)
[2017-08-05] MEDS ORDERED: NICOTINE 21 MG/24 HR PATCH.TD24 TD ONE ×2 (16:37→18:15)
--- NOTE | 2017-08-05 16:45 | PDOC H&P ---
History of Present Illness Admission Date/PCP: LEANDRA OTERO MD Patient complains of: Fever History of Present Illness: TREY DAWSON is a 67 year old male presents to the emergency room with report of fever. No family at bedside and patient is a poor historian. Contacted Ms. Ervin who states that pt was vomiting 3 weeks ago due to pt being constipated. She states that when he got home he was still complaining of abd pain. She states that she has been giving him suppository and now has diarrhea. Ms. Ervin states that she would like for [facility] to bring home at time of discharge. Past Medical History Cardiac Medical History: Reports: Atrial Fibrillation, DVT, Hyperlipidema, Hypertension Pulmonary Medical History: Reports: Chronic Obstructive Pulmonary Disease (COPD) Psychiatric Medical History: Reports: Depression Social History Information Source: Relative Smoking Status: Current Every Day Smoker Frequency of Alcohol Use: Social Hx Recreational Drug Use: No Drugs: None Hx Prescription Drug Abuse: No - Advance Directive Resuscitation Status: Full Code Family History Family History: CAD, COPD Parental Family History Reviewed: Yes Children Family History Reviewed: Yes Sibling(s) Family History Reviewed.: Yes Medication/Allergy Home Medications: Quetiapine Fumarate [Seroquel 100 mg Tablet] 100 mg PO QHS 11/18/16 Roflumilast [Daliresp 500 mcg Tablet] 500 mcg PO DAILY 11/18/16 Tamsulosin HCl [Flomax 0.4 mg Cap.sr] 0.4 mg PO DAILY 11/18/16 Enalapril Maleate [Vasotec 5 mg Tablet] 5 mg PO Q12 #60 tablet 11/20/16 Furosemide [Lasix] 40 mg PO DAILY #30 tablet 11/20/16 Hydralazine HCl [Apresoline 50 mg Tablet] 50 mg PO Q8 #90 tablet 11/20/16 Metoprolol Succinate [Toprol Xl 50 mg Tab.sr] 50 mg PO DAILY #30 tab.sr.24h 12/30 Ondansetron [Zofran Odt 4 mg Tablet] 1 - 2 tab PO Q4H PRN #15 tab.rapdis Allergies/Adverse Reactions: No Known Allergies Allergy (Verified 08/14/16 23:26) Review of Systems ROS unobtainable: Due to mental status Physical Exam Vital Signs: Temp Pulse Resp BP Pulse Ox 98.0 F 145 H 26 H 113/84 96 08/05/17 12:00 08/05/17 11:37 08/05/17 13:01 08/05/17 13:00 08/05/17 13:01 General appearance: PRESENT: no acute distress, thin, well-developed Head exam: PRESENT: atraumatic, normocephalic Eye exam: PRESENT: conjunctiva pink, EOMI Ear exam: PRESENT: normal external ear exam Mouth exam: PRESENT: moist, tongue midline Neck exam: ABSENT: carotid bruit, JVD, lymphadenopathy, thyromegaly Respiratory exam: PRESENT: decreased breath sounds, other - coarse breath sounds left upper, No wheezing. Cardiovascular exam: PRESENT: irregular rhythm Pulses: PRESENT: normal dorsalis pedis pul Vascular exam: PRESENT: normal capillary refill GI/Abdominal exam: PRESENT: normal bowel sounds, soft. ABSENT: distended, guarding, mass, organolmegaly, rebound, tenderness Rectal exam: PRESENT: deferred Extremities exam: PRESENT: full ROM. ABSENT: calf tenderness, clubbing, pedal edema Neurological exam: PRESENT: alert, awake, oriented to person Psychiatric exam: PRESENT: appropriate affect, normal mood. ABSENT: homicidal ideation, suicidal ideation Skin exam: PRESENT: dry, intact, warm. ABSENT: cyanosis, rash Results Laboratory Results: 08/05/17 12:00 08/05/17 12:00 08/05/17 08/05/17 08/05/17 12:00 12:00 12:00 WBC 13.7 H RBC 5.37 Hgb 14.7 Hct 45.8 MCV 85 MCH 27.4 MCHC 32.2 RDW 13.8 Plt Count 348 Seg Neutrophils % 87.7 H Lymphocytes % 6.4 L Monocytes % 5.1 Eosinophils % 0.1 Basophils % 0.7 Absolute Neutrophils 12.0 H Absolute Lymphocytes 0.9 Absolute Monocytes 0.7 Absolute Eosinophils 0.0 Absolute Basophils 0.1 VBG pH VBG pCO2 VBG HCO3 VBG Base Excess Sodium 143.0 Potassium 5.1 H Chloride 103 Carbon Dioxide 28 Anion Gap 12 BUN 32 H Creatinine 1.43 H Est GFR ( Amer) > 60 Est GFR (Non-Af Amer) 49 L Glucose 127 H Lactic Acid 2.4 H Calcium 10.2 Total Bilirubin 1.0 AST 28 ALT 24 Alkaline Phosphatase 121 Total Protein 9.8 H Albumin 4.5 Urine Color Urine Appearance Urine pH Ur Specific [place] Urine Protein Urine Glucose (UA) Urine Ketones Urine Blood Urine Nitrite Ur Leukocyte Esterase Urine WBC (Auto) Urine RBC (Auto) 08/05/17 08/05/17 12:00 12:44 WBC RBC Hgb Hct MCV MCH MCHC RDW Plt Count Seg Neutrophils % Lymphocytes % Monocytes % Eosinophils % Basophils % Absolute Neutrophils Absolute Lymphocytes Absolute Monocytes Absolute Eosinophils Absolute Basophils VBG pH 7.34 VBG pCO2 47.7 VBG HCO3 25.2 VBG Base Excess -1.2 Sodium Potassium Chloride Carbon Dioxide Anion Gap BUN Creatinine Est GFR ( Amer) Est GFR (Non-Af Amer) Glucose Lactic Acid Calcium Total Bilirubin AST ALT Alkaline Phosphatase Total Protein Albumin Urine Color DARK YELLOW Urine Appearance SLIGHTLY-CLOUDY Urine pH 5.0 Ur Specific [place] 1.026 Urine Protein NEGATIVE Urine Glucose (UA) NEGATIVE Urine Ketones NEGATIVE Urine Blood NEGATIVE Urine Nitrite NEGATIVE Ur Leukocyte Esterase NEGATIVE Urine WBC (Auto) 1 Urine RBC (Auto) 1 Impressions: Chest X-Ray 08/05/17 12:21 IMPRESSION: NO ACUTE RADIOGRAPHIC FINDING IN THE CHEST. Abdomen/Pelvis CT 08/05/17 12:43 IMPRESSION: Left upper lobe pneumonia at the upper edge of the field of view. Otherwise unremarkable CT abdomen and pelvis. Assessment & Plan - Diagnosis (1) Sepsis Qualifiers: Sepsis type: sepsis due to unspecified organism Qualified Code(s): A41.9 - Sepsis, unspecified organism Is this a current diagnosis for this admission?: Yes Plan: Secondary to Left Upper lobe Pneumonia: Will continue IV fluid and antibiotic Zosyn. Will check lactic acid Q4 hours. Blood culture and urine culture pending. (2) Pneumonia Qualifiers: Pneumonia type: due to unspecified organism Laterality: left Lung location: lower lobe of lung Qualified Code(s): J18.1 - Lobar pneumonia, unspecified organism Is this a current diagnosis for this admission?: Yes Plan: Most likely Secondary to Aspiration Pneumonia: Will place on Zosyn. (3) Acute kidney injury superimposed on chronic kidney disease Is this a current diagnosis for this admission?: Yes Plan: stage 1: Will give IVF. Will check BMP in am. Renal ultrasound pending. (4) Emesis Is this a current diagnosis for this admission?: Yes Plan: Zofran PRN (5) Constipation Is this a current diagnosis for this admission?: Yes Plan: Will place pt on colace. (6) Hyperkalemia Is this a current diagnosis for this admission?: Yes (7) COPD (chronic obstructive pulmonary disease) Is this a current diagnosis for this admission?: Yes Plan: Duoneb PRN (8) Tobacco dependence Is this a current diagnosis for this admission?: Yes Plan: Will place nicotine patch. (9) Moderate protein malnutrition Is this a current diagnosis for this admission?: Yes Plan: Will continue IVFs. Will place on mechanical diet. (10) Paroxysmal a-fib Is this a current diagnosis for this admission?: Yes Plan: Will resume home medications once verified. (11) Dysphagia Is this a current diagnosis for this admission?: Yes Plan: Will have speech therapy evaluate pt. (12) DVT prophylaxis Is this a current diagnosis for this admission?: Yes Plan: SCDs - Time Time Spent: 30 to 50 Minutes
[2017-08-05 17:05] LABS: INTERNATIONAL RATION (INR) 1.35; PROTHROMBIN TIME 17.5 SEC (11.4-15.4)
[2017-08-05 17:06] LABS: PARTIAL THROMBOPLASTIN TIME 40.7 SEC (23.5-35.8)
[2017-08-05] MEDS ORDERED: INFLUENZA ADLT QUAD (36MOS+) 2017-18 VAC 0.5 ML SYR IM PRN (20:07)
[2017-08-05] MEDS ORDERED: PIPERACILLIN SODIUM/TAZOBACTAM 3.375 GM in NORMAL SALINE 100 ML IV ONE ×2 (22:00→22:30)
--- NOTE | 2017-08-05 22:05 | EKG REPORT ---
SEVERITY:- ABNORMAL ECG - SINUS TACHYCARDIA VENTRICULAR PREMATURE COMPLEX PROBABLE LEFT ATRIAL ABNORMALITY INCOMPLETE RBBB AND LAFB LEFT VENTRICULAR HYPERTROPHY : Confirmed by: Ifeanyi Porras 05-Aug-2017 22:04:47
[2017-08-05] MEDS ORDERED: PIPERACILLIN/TAZOBACTAM 3.375 GM VIAL IV ONE (22:21)
--- NOTE | 2017-08-06 00:18 | RADIOLOGY REPORT (SQ) ---
EXAM DESCRIPTION: U/S RETROPERITON (RENAL/AORTA) CLINICAL HISTORY: acute renal injury COMPARISON: 08/05/2017 TECHNIQUE: Real-time sonographic images of the retroperitoneum were obtained using a curved multihertz transducer. Suboptimal evaluation due to overlying bowel gas. FINDINGS: The aorta and IVC are not identified. The right kidney measures 9.6 cm in length. The left kidney measures 9.8 cm in length. No solid renal mass, shadowing renal calculi, or hydronephrosis. No definite abnormalities of the urinary bladder. The urinary bladder is well-distended and not well-visualized due to overlying bowel gas. IMPRESSION: 1. No definite sonographic abnormality identified in the kidneys.
[2017-08-06] MEDS: PIPERACILLIN SODIUM/TAZOBACTAM 3.375 GM in NORMAL SALINE 100 ML IV SCH ×4 (03:46→19:54)
[2017-08-06] MEDS: LANSOPRAZOLE 30 MG TAB.RAP.DR PO SCH (05:00)
[2017-08-06 05:37] LABS: ABSOLUTE BASOPHILS # (AUTO) 0.1 10^3/uL (0.0-0.2); ABSOLUTE LYMPHOCYTES (AUTO) 1.3 10^3/uL (0.5-4.7); ABSOLUTE NEUT (AUTO) 10.3 10^3/uL (1.7-8.2); BASOPHILS % (AUTO) 0.5 % (0-2); EOSINOPHILS % (AUTO) 0.3 % (0-6); HEMATOCRIT 35.5 % (37.9-51.0); LYMPHOCYTES % (AUTO) 10.3 % (13-45); MEAN CORPUSCULAR HEMOGLOBIN 27.5 pg (27.0-33.4); MEAN CORPUSCULAR HGB CONC 32.3 g/dL (32.0-36.0); MEAN CORPUSCULAR VOLUME 85 fl (80-97); MONOCYTES % (AUTO) 7.7 % (3-13); PLATELET COUNT 233 10^3/uL (150-450); RED BLOOD COUNT 4.17 10^6/uL (4.35-5.55); RED CELL DISTRIBUTION WIDTH 13.6 % (11.5-14.0); SEGMENTED NEUTROPHILS % (AUTO) 81.2 % (42-78); TOTAL CELLS COUNTED % (AUTO) 100 %; WHITE BLOOD COUNT 12.7 10^3/uL (4.0-10.5)
[2017-08-06 05:45] LABS: HEMOGLOBIN 11.5 g/dL (13.5-17.0)
[2017-08-06 05:55] LABS: ALANINE AMINOTRANSFERASE 27 U/L (21-72); ALBUMIN 3.2 g/dL (3.5-5.0); ALKALINE PHOSPHATASE 88 U/L (38-126); ANION GAP 11 (5-19); ASPARTATE AMINO TRANSFERASE 18 U/L (17-59); BILIRUBIN,DIRECT 0.2 mg/dL (0.0-0.4); BILIRUBIN,TOTAL 0.8 mg/dL (0.2-1.3); BLOOD UREA NITROGEN 23 mg/dL (7-20); CALCIUM 9.4 mg/dL (8.4-10.2); CARBON DIOXIDE 24 mmol/L (22-30); CHLORIDE 107 mmol/L (98-107); GLUCOSE 98 mg/dL (75-110); POTASSIUM 4.9 mmol/L (3.6-5.0); SODIUM 142.2 mmol/L (137-145); TOTAL PROTEIN 6.6 g/dL (6.3-8.2)
[2017-08-06 06:06] LABS: FREE T4 (FREE THYROXINE) 1.86 ng/dL (0.78-2.19)
[2017-08-06 06:20] LABS: THYROID STIMULATING HORMONE 0.22 uIU/mL (0.47-4.68)
--- NOTE | 2017-08-06 09:59 | PDOC PROGRESS REPORT ---
Subjective Progress Note for:: 08/06/17 Subjective:: Patient states that he is feeling somewhat better. Nursing states that she has not had any issues with patient over. Reason For Visit: LEFT UPPER LOBE PNEUMONIA Physical Exam Vital Signs: Temp Pulse Resp BP Pulse Ox 97.1 F 100 20 139/72 H 98 08/06/17 07:44 08/06/17 07:44 08/06/17 07:44 08/06/17 07:44 08/06/17 07:44 Intake & Output 08/05/17 08/06/17 08/07/17 06:59 06:59 06:59 Intake Total 1740 Balance 1740 Weight 58 kg General appearance: PRESENT: no acute distress, thin, well-developed Head exam: PRESENT: atraumatic, normocephalic Eye exam: PRESENT: conjunctiva pink, EOMI. ABSENT: scleral icterus Ear exam: PRESENT: normal external ear exam Mouth exam: PRESENT: moist, tongue midline Neck exam: ABSENT: carotid bruit, JVD, lymphadenopathy, thyromegaly Respiratory exam: PRESENT: decreased breath sounds, unlabored. ABSENT: accessory muscle use, chest wall tenderness, prolonged expiratory phas, wheezes , other Cardiovascular exam: PRESENT: RRR. ABSENT: diastolic murmur, rubs, systolic murmur Pulses: PRESENT: normal dorsalis pedis pul Vascular exam: PRESENT: normal capillary refill GI/Abdominal exam: PRESENT: normal bowel sounds, soft. ABSENT: distended, guarding, mass, organolmegaly, rebound, tenderness Rectal exam: PRESENT: deferred Extremities exam: PRESENT: full ROM. ABSENT: calf tenderness, clubbing, pedal edema Neurological exam: PRESENT: alert, awake, oriented to person. ABSENT: motor sensory deficit Psychiatric exam: PRESENT: appropriate affect, normal mood. ABSENT: homicidal ideation, suicidal ideation Skin exam: PRESENT: dry, intact, warm. ABSENT: cyanosis, rash Results Laboratory Results: 08/06/17 04:26 08/06/17 04:26 08/05/17 08/05/17 08/06/17 20:05 22:05 04:26 WBC 12.7 H RBC 4.17 L Hgb 11.5 L D Hct 35.5 L MCV 85 MCH 27.5 MCHC 32.3 RDW 13.6 Plt Count 233 Seg Neutrophils % 81.2 H Lymphocytes % 10.3 L Monocytes % 7.7 Eosinophils % 0.3 Basophils % 0.5 Absolute Neutrophils 10.3 H Absolute Lymphocytes 1.3 Absolute Monocytes 1.0 Absolute Eosinophils 0.0 Absolute Basophils 0.1 Sodium Potassium Chloride Carbon Dioxide Anion Gap BUN Creatinine Est GFR ( Amer) Est GFR (Non-Af Amer) Glucose Lactic Acid 1.5 1.3 Calcium Magnesium Total Bilirubin AST ALT Alkaline Phosphatase Total Protein Albumin TSH Free T4 08/06/17 08/06/17 04:26 04:26 WBC RBC Hgb Hct MCV MCH MCHC RDW Plt Count Seg Neutrophils % Lymphocytes % Monocytes % Eosinophils % Basophils % Absolute Neutrophils Absolute Lymphocytes Absolute Monocytes Absolute Eosinophils Absolute Basophils Sodium 142.2 Potassium 4.9 Chloride 107 Carbon Dioxide 24 Anion Gap 11 BUN 23 H Creatinine 1.01 Est GFR ( Amer) > 60 Est GFR (Non-Af Amer) > 60 Glucose 98 Lactic Acid Calcium 9.4 Magnesium 1.8 Total Bilirubin 0.8 AST 18 ALT 27 Alkaline Phosphatase 88 Total Protein 6.6 Albumin 3.2 L TSH 0.22 L Free T4 1.86 Impressions: Renal Ultrasound 08/05/17 00:00 IMPRESSION: 1. No definite sonographic abnormality identified in the kidneys. Chest X-Ray 08/05/17 12:21 IMPRESSION: NO ACUTE RADIOGRAPHIC FINDING IN THE CHEST. Abdomen/Pelvis CT 08/05/17 12:43 IMPRESSION: Left upper lobe pneumonia at the upper edge of the field of view. Otherwise unremarkable CT abdomen and pelvis. Assessment & Plan - Diagnosis (1) Sepsis Qualifiers: Sepsis type: sepsis due to unspecified organism Qualified Code(s): A41.9 - Sepsis, unspecified organism Is this a current diagnosis for this admission?: Yes Plan: Secondary to Left Upper lobe Pneumonia: Will continue IV fluid and antibiotic Zosyn. Blood culture and Urine culture pending. (2) Pneumonia Qualifiers: Pneumonia type: due to unspecified organism Laterality: left Lung location: lower lobe of lung Qualified Code(s): J18.1 - Lobar pneumonia, unspecified organism Is this a current diagnosis for this admission?: Yes Plan: Most likely Secondary to Aspiration Pneumonia Gram Positive organism: Will continue Zosyn. (3) Acute kidney injury superimposed on chronic kidney disease Is this a current diagnosis for this admission?: Yes Plan: stage 1: Resolved. Renal ultrasound within normal limits. (4) Emesis Is this a current diagnosis for this admission?: Yes Plan: Zofran PRN (5) Constipation Is this a current diagnosis for this admission?: Yes Plan: Will continue colace. (6) Hyperkalemia Is this a current diagnosis for this admission?: Yes Plan: Resolved. (7) COPD (chronic obstructive pulmonary disease) Is this a current diagnosis for this admission?: Yes Plan: Duoneb PRN (8) Tobacco dependence Is this a current diagnosis for this admission?: Yes Plan: nicotine patch. (9) Moderate protein malnutrition Is this a current diagnosis for this admission?: Yes Plan: Will continue IVFs. Mechanical diet. (10) Paroxysmal a-fib Is this a current diagnosis for this admission?: Yes Plan: Will continue to monitor. (11) Dysphagia Is this a current diagnosis for this admission?: Yes Plan: Will have speech therapy evaluate pt. Will place on mechanical soft diet. (12) Moderate protein-calorie malnutrition Is this a current diagnosis for this admission?: Yes Plan: Will encourage good PO intake and supplemental drinks. (13) DVT prophylaxis Is this a current diagnosis for this admission?: Yes Plan: SCDs - Time Time Spent with patient: 15-24 minutes
[2017-08-06] MEDS: NICOTINE 21 MG/24 HR PATCH.TD24 TD SCH (10:00)
[2017-08-06] MEDS: DOCUSATE SODIUM 100 MG CAPSULE PO SCH (10:00)
[2017-08-06] MEDS ORDERED: METOPROLOL TARTRATE PF/INJ 5 MG/5 ML SDV IV ONE (20:00)
[2017-08-06] MEDS: METOPROLOL SUCCINATE 25 MG TAB.SR.24H PO SCH (20:35)
--- NOTE | 2017-08-06 21:55 | EKG REPORT ---
SEVERITY:- ABNORMAL ECG - MULTIFORM VENTRICULAR PREMATURE COMPLEXES RBBB AND LAFB SINUS TACHYCARDIA, CANNOT R/O A FLUTTER : Confirmed by: Ifeanyi Porras 06-Aug-2017 21:54:38
[2017-08-07] MEDS: PIPERACILLIN SODIUM/TAZOBACTAM 3.375 GM in NORMAL SALINE 100 ML IV SCH ×4 (03:44→22:30)
[2017-08-07] MEDS: LANSOPRAZOLE 30 MG TAB.RAP.DR PO SCH (05:08)
[2017-08-07] MEDS: NICOTINE 21 MG/24 HR PATCH.TD24 TD SCH (09:51)
[2017-08-07] MEDS: DOCUSATE SODIUM 100 MG CAPSULE PO SCH (09:52)
[2017-08-07] MEDS: METOPROLOL SUCCINATE 25 MG TAB.SR.24H PO SCH ×2 (09:52→22:22)
--- NOTE | 2017-08-07 13:44 | PDOC PROGRESS REPORT ---
Subjective Progress Note for:: 08/07/17 Subjective:: Nursing states that pt was tachycardiac overnight. Reason For Visit: LEFT UPPER LOBE PNEUMONIA Physical Exam Vital Signs: Temp Pulse Resp BP Pulse Ox 97.5 F 73 16 136/76 H 100 08/07/17 12:00 08/07/17 12:21 08/07/17 12:21 08/07/17 12:00 08/07/17 12:00 Intake & Output 08/06/17 08/07/17 08/08/17 06:59 06:59 06:59 Intake Total 1740 3926 Balance 1740 3926 Weight 58 kg 61.7 kg General appearance: PRESENT: no acute distress, thin, well-developed Head exam: PRESENT: atraumatic, normocephalic Eye exam: PRESENT: conjunctiva pink, EOMI. ABSENT: scleral icterus Ear exam: PRESENT: normal external ear exam Mouth exam: PRESENT: moist, tongue midline Neck exam: ABSENT: carotid bruit, JVD, lymphadenopathy, thyromegaly Respiratory exam: PRESENT: clear to auscultation gera. ABSENT: rales, rhonchi, wheezes Cardiovascular exam: PRESENT: RRR. ABSENT: diastolic murmur, rubs, systolic murmur Pulses: PRESENT: normal dorsalis pedis pul Vascular exam: PRESENT: normal capillary refill GI/Abdominal exam: PRESENT: normal bowel sounds, soft. ABSENT: distended, guarding, mass, organolmegaly, rebound, tenderness Rectal exam: PRESENT: deferred Extremities exam: PRESENT: full ROM. ABSENT: calf tenderness, clubbing, pedal edema Musculoskeletal exam: PRESENT: full ROM Neurological exam: PRESENT: alert, awake, oriented to person. ABSENT: motor sensory deficit Psychiatric exam: PRESENT: appropriate affect, normal mood. ABSENT: homicidal ideation, suicidal ideation Skin exam: PRESENT: dry, intact, warm. ABSENT: cyanosis, rash Results Laboratory Results: 08/06/17 04:26 08/06/17 04:26 Impressions: Renal Ultrasound 08/05/17 00:00 IMPRESSION: 1. No definite sonographic abnormality identified in the kidneys. Chest X-Ray 08/05/17 12:21 IMPRESSION: NO ACUTE RADIOGRAPHIC FINDING IN THE CHEST. Abdomen/Pelvis CT 08/05/17 12:43 IMPRESSION: Left upper lobe pneumonia at the upper edge of the field of view. Otherwise unremarkable CT abdomen and pelvis. Assessment & Plan - Diagnosis (1) Tachycardia Is this a current diagnosis for this admission?: Yes Plan: Will continue Toprol XL 25mg BID. Will check Echo. Will consult Cardiology. (2) Sepsis Qualifiers: Sepsis type: sepsis due to unspecified organism Qualified Code(s): A41.9 - Sepsis, unspecified organism Is this a current diagnosis for this admission?: Yes Plan: Secondary to Left Upper lobe Pneumonia: Will continue IV fluid and antibiotic Zosyn. Blood culture no growth in 24 hours and Urine culture no growth 2 days. (3) Pneumonia Qualifiers: Pneumonia type: due to unspecified organism Laterality: left Lung location: lower lobe of lung Qualified Code(s): J18.1 - Lobar pneumonia, unspecified organism Is this a current diagnosis for this admission?: Yes Plan: Most likely Secondary to Aspiration Pneumonia Gram Positive organism: Will continue Zosyn. (4) Acute kidney injury superimposed on chronic kidney disease Is this a current diagnosis for this admission?: Yes Plan: stage 1: Resolved. Renal ultrasound within normal limits. (5) Emesis Is this a current diagnosis for this admission?: Yes Plan: Zofran PRN (6) Constipation Is this a current diagnosis for this admission?: Yes Plan: Will continue colace. Will give Enema today. (7) Hyperkalemia Is this a current diagnosis for this admission?: Yes Plan: Resolved. (8) COPD (chronic obstructive pulmonary disease) Is this a current diagnosis for this admission?: Yes Plan: Duoneb PRN (9) Tobacco dependence Is this a current diagnosis for this admission?: Yes Plan: nicotine patch. (10) Moderate protein malnutrition Is this a current diagnosis for this admission?: Yes Plan: Will continue IVFs. Mechanical diet. (11) Paroxysmal a-fib Is this a current diagnosis for this admission?: Yes Plan: Will continue to monitor. (12) Dysphagia Is this a current diagnosis for this admission?: Yes Plan: Will have speech therapy evaluate pt. Will continue mechanical soft diet. (13) Moderate protein-calorie malnutrition Is this a current diagnosis for this admission?: Yes Plan: Will encourage good PO intake and supplemental drinks. (14) DVT prophylaxis Is this a current diagnosis for this admission?: Yes Plan: SCDs
--- NOTE | 2017-08-07 15:50 | PDOC CONSULTATION ---
Consultation Consult Date: 08/07/17 Attending physician:: CORINE ROPER Consult reason:: Abnormal EKG History of Present Illness Admission Date/PCP: 08/05/17 17:03 LEANDRA OTERO MD Patient complains of: Shortness of breath History of Present Illness: TREY DAWSON is a 67 year old male presents to the emergency room with report of fever. No family at bedside and patient is a poor historian. Contacted Ms. Ervin who states that pt was vomiting 3 weeks ago due to pt being constipated. She states that when he got home he was still complaining of abd pain. She states that she has been giving him suppository and now has diarrhea. Ms. Ervin states that she would like for [facility] to bring home at time of discharge. This history was reviewed and confirmed. Unfortunately patient cannot add any more to the history. Patient however while being monitored on the floor had a EKG performed which showed junctional tachycardia. I was therefore asked to evaluate this patient. Patient subsequently received metoprolol which got him into normal rhythm. Past Medical History Cardiac Medical History: Reports: Atrial Fibrillation, DVT, Hyperlipidema, Hypertension Pulmonary Medical History: Reports: Chronic Obstructive Pulmonary Disease (COPD) Psychiatric Medical History: Reports: Depression Social History Information Source: [facility], LAT[facility] Records Smoking Status: Current Every Day Smoker Frequency of Alcohol Use: Social Hx Recreational Drug Use: No Drugs: None Hx Prescription Drug Abuse: No - Advance Directive Resuscitation Status: Full Code Family History Family History: CAD, COPD Parental Family History Reviewed: Yes Children Family History Reviewed: Yes Sibling(s) Family History Reviewed.: Yes Medication/Allergy Home Medications: Apixaban [Eliquis 5 mg Tablet] 5 mg PO Q12 08/05/17 Fluticasone/Salmeterol [Advair 250-50 Diskus 28 dose] 1 puff IH Q12 08/05/17 Ipratropium/Albuterol Sulfate [Combivent Respimat 4 gm Mdi] 1 puff IH QIDP PRN 08/05/17 Lisinopril [Prinivil 10 mg Tablet] 10 mg PO DAILY 08/05/17 Mirtazapine 7.5 mg PO QHS 08/05/17 Tamsulosin HCl [Flomax 0.4 mg Cap.sr] 0.4 mg PO DAILY 08/05/17 Docusate Sodium [Colace 100 mg Capsule] 100 mg PO DAILY capsule 08/08/17 Levofloxacin [Levaquin 750 mg Tablet] 750 mg PO DAILY #5 tablet 08/08/17 Metoprolol Succinate [Toprol Xl 25 mg Tab.sr] 25 mg PO Q12 #60 tab.sr.24h Ondansetron [Zofran Odt 4 mg Tablet] 4 mg PO Q4HP PRN #30 tab.rapdis 08/08/17 Piperacillin Sodium/Tazobactam [Zosyn Inj 3.375 gm Vial] 3.375 gm IV Q6A vial 08/08/17 Polyethylene Glycol 3350 [Miralax Powder 17 gm/Packet] 1 packet PO DAILY #1 pkg 08/08/17 Allergies/Adverse Reactions: No Known Allergies Allergy (Verified 08/14/16 23:26) Review of Systems ROS unobtainable: Due to mental status - Patient noted to be confused with mild agitation., Other Physical Exam Vital Signs: Temp Pulse Resp BP Pulse Ox 97.5 F 73 16 136/76 H 100 08/07/17 12:00 08/07/17 12:21 08/07/17 12:21 08/07/17 12:00 08/07/17 12:00 Intake & Output 08/06/17 08/07/17 08/08/17 06:59 06:59 06:59 Intake Total 1740 3926 Balance 1740 3926 Weight 58 kg 61.7 kg Exam: General appearance: PRESENT: no acute distress, thin, well-developed Head exam: PRESENT: atraumatic, normocephalic Eye exam: PRESENT: conjunctiva pink, EOMI Ear exam: PRESENT: normal external ear exam Mouth exam: PRESENT: moist, tongue midline Neck exam: ABSENT: carotid bruit, JVD, lymphadenopathy, thyromegaly Respiratory exam: Bibasilar fine crackles noted with left basal more crackles as compared to right. Occasional scattered wheezing noted. No dullness noted. Cardiovascular exam: PRESENT: Regular rhythm. 1/6 ejection systolic murmur noted in the aortic area. 1/6 pansystolic murmur noted mitral area. No extra sounds noted. No parasternal heave noted. Pulses: PRESENT: normal dorsalis pedis pul Vascular exam: PRESENT: normal capillary refill GI/Abdominal exam: PRESENT: normal bowel sounds, soft. ABSENT: distended, guarding, mass, organolmegaly, rebound, tenderness Rectal exam: PRESENT: deferred Extremities exam: PRESENT: full ROM. ABSENT: calf tenderness, clubbing, pedal edema Neurological exam: PRESENT: alert, awake, orientation to person but not to place or time. Patient noted to have dense left-sided hemiparesis. Psychiatric exam: PRESENT: appropriate affect, normal mood. Insight and judgment could not be checked. ABSENT: homicidal ideation, suicidal ideation Skin exam: PRESENT: dry, intact, warm. ABSENT: cyanosis, rash Results Laboratory Results: 08/06/17 04:26 08/06/17 04:26 EKG Comments: Twelve-lead EKG is reviewed. Initial one showed sinus tachycardia. Subsequent 1 could well be atrial flutter with 2-1 but not entirely certain. Minor nonspecific ST segment changes noted. Impressions: Renal Ultrasound 08/05/17 00:00 IMPRESSION: 1. No definite sonographic abnormality identified in the kidneys. Chest X-Ray 08/05/17 12:21 IMPRESSION: NO ACUTE RADIOGRAPHIC FINDING IN THE CHEST. Abdomen/Pelvis CT 08/05/17 12:43 IMPRESSION: Left upper lobe pneumonia at the upper edge of the field of view. Otherwise unremarkable CT abdomen and pelvis. Assessment & Plan - Diagnosis (1) Tachycardia Is this a current diagnosis for this admission?: Yes (2) Pneumonia Qualifiers: Pneumonia type: due to unspecified organism Lung location: lower lobe of lung Is this a current diagnosis for this admission?: Yes (3) COPD (chronic obstructive pulmonary disease) Qualifiers: COPD type: unspecified COPD Qualified Code(s): J44.9 - Chronic obstructive pulmonary disease, unspecified Is this a current diagnosis for this admission?: Yes (4) Hypertension Qualifiers: Hypertension type: essential hypertension Qualified Code(s): I10 - Essential (primary) hypertension Is this a current diagnosis for this admission?: Yes (5) Paroxysmal a-fib Is this a current diagnosis for this admission?: Yes - Notes Notes: Narrow complex tachycardia: Patient noted to have sinus tachycardia on admission however subsequent EKG suggest presence of underlying atrial flutter fibrillation with rapid ventricular response. Patient does have history of paroxysmal atrial fibrillation and currently on Eliquis therapy. At this point agree with beta-anahi therapy. May give IV metoprolol or IV Cardizem if there are recurrent spells. Pneumonia: Patient on antibiotic therapy. Currently seems to be maintaining good oxygenation. COPD: It seems patient has a history of tobacco abuse. Patient will benefit from tobacco cessation. Continue with bronchodilator and steroid therapy as needed. Hypertension: Blood pressure under satisfactory control. Agree with obtaining 2D echocardiogram which will be reviewed once performed. - Time Time Spent: 30 to 50 Minutes - CODE STATUS was discussed, patient remains full code. Surrogate decision-maker unchanged. Multiple medical problems were addressed. More than 50% of the time spent coordinating care, discussing management plans with involved caregivers. Management plans discussed with involved personnels. Medical decision making was of moderate to high complexity , patient's has multiple comorbidities. Medications reviewed and adjusted accordingly: Yes
--- NOTE | 2017-08-07 16:18 | EKG REPORT ---
SEVERITY:- ABNORMAL ECG - SINUS RHYTHM MULTIPLE VENTRICULAR PREMATURE COMPLEXES RIGHT BUNDLE BRANCH BLOCK PROBABLE LEFT VENTRICULAR HYPERTROPHY : Confirmed by: Ifeanyi Porras 07-Aug-2017 16:18:14
[2017-08-08] MEDS: PIPERACILLIN SODIUM/TAZOBACTAM 3.375 GM in NORMAL SALINE 100 ML IV SCH ×2 (03:27→08:43)
[2017-08-08 05:09] LABS: ABSOLUTE BASOPHILS # (AUTO) 0.1 10^3/uL (0.0-0.2); ABSOLUTE EOSINOPHILS # (AUTO) 0.1 10^3/uL (0.0-0.6); ABSOLUTE LYMPHOCYTES (AUTO) 2.3 10^3/uL (0.5-4.7); ABSOLUTE MONOCYTES (AUTO) 0.5 10^3/uL (0.1-1.4); BASOPHILS % (AUTO) 0.8 % (0-2); EOSINOPHILS % (AUTO) 1.6 % (0-6); HEMATOCRIT 36.1 % (37.9-51.0); HEMOGLOBIN 11.8 g/dL (13.5-17.0); LYMPHOCYTES % (AUTO) 28.9 % (13-45); MEAN CORPUSCULAR HEMOGLOBIN 27.6 pg (27.0-33.4); MEAN CORPUSCULAR HGB CONC 32.7 g/dL (32.0-36.0); MEAN CORPUSCULAR VOLUME 84 fl (80-97); MONOCYTES % (AUTO) 6.7 % (3-13); PLATELET COUNT 271 10^3/uL (150-450); RED BLOOD COUNT 4.28 10^6/uL (4.35-5.55); RED CELL DISTRIBUTION WIDTH 13.3 % (11.5-14.0); TOTAL CELLS COUNTED % (AUTO) 100 %; WHITE BLOOD COUNT 8.1 10^3/uL (4.0-10.5)
[2017-08-08 05:45] LABS: ALANINE AMINOTRANSFERASE 22 U/L (21-72); ALBUMIN 3.1 g/dL (3.5-5.0); ALKALINE PHOSPHATASE 76 U/L (38-126); ANION GAP 10 (5-19); ASPARTATE AMINO TRANSFERASE 17 U/L (17-59); BILIRUBIN,DIRECT 0.4 mg/dL (0.0-0.4); BILIRUBIN,TOTAL 0.8 mg/dL (0.2-1.3); BLOOD UREA NITROGEN 11 mg/dL (7-20); CARBON DIOXIDE 21 mmol/L (22-30); CHLORIDE 107 mmol/L (98-107); GLUCOSE 67 mg/dL (75-110); POTASSIUM 3.6 mmol/L (3.6-5.0); SODIUM 137.7 mmol/L (137-145); TOTAL PROTEIN 6.8 g/dL (6.3-8.2)
[2017-08-08] MEDS: LANSOPRAZOLE 30 MG TAB.RAP.DR PO SCH (06:30)
[2017-08-08] MEDS ORDERED: IPRATROPIUM/ALBUTEROL 120 PUFF/4 GM MDI IH PRN (07:01)
[2017-08-08] MEDS ORDERED: FLUTICASONE/SALMETEROL DISKUS 250-50 MCG/DOSE IH SCH (10:00)
[2017-08-08] MEDS ORDERED: LISINOPRIL 10 MG TABLET PO SCH (10:00)
[2017-08-08] MEDS ORDERED: APIXABAN 5 MG TABLET PO SCH (10:00)
[2017-08-08] MEDS ORDERED: ONDANSETRON HCL INJ/PF 4 MG/2 ML SDV IV PRN (11:00)
--- NOTE | 2017-08-08 11:00 | XCELERA REPORT ---
[address] [address] Transthoracic Echocardiogram Report Name: TREY DAWSON Age: 67 yrs Gender: Male : 1950 Patient Status: Inpatient Patient Location: [address] [place] [address] Study Date: 08/07/2017 03:51 PM Height: 65 in Weight: 136 lb BSA: 1.7 m2 Procedure: A complete two-dimensional transthoracic echocardiogram was performed (2D, M-mode, spectral and color flow Doppler). The study was technically adequate with some images being suboptimal in quality. Reason For Study: Tachycardia Ordering Physician: CORINE ROPER Performed By: Ana Dumont Interpretation Summary LV EF is 50% Left ventricular systolic function is borderline reduced. There is borderline concentric left ventricular hypertrophy. The left ventricle is grossly normal size. Doppler measurements suggest pseudonormalized left ventricular relaxation, which is associated with grade II/IV or mild to moderate diastolic dysfunction Wall motion cannot be accurately commented on, but no definite regional wall motion abnormalities noted. The right ventricular systolic function is normal. The right atrium is normal in size The left atrium is borderline dilated. There is a mild amount of mitral regurgitation There is no mitral valve stenosis. There is no aortic valve stenosis There is a mild amount of aortic regurgitation There is a mild amount of tricuspid regurgitation Right ventricular systolic pressure is at the upper limits of normal The aortic root is not well visualized but is probably normal size. The inferior vena cava appeared normal and decreased > 50% with respiration (RAP 5-10 mmHg) There is no pericardial effusion. MMode/2D Measurements & Calculations RVDd: 2.4 cm LVIDd: 5.4 cm FS: 23.0 % Ao root diam: 3.4 cm IVSd: 0.92 cm LVIDs: 4.2 cm EDV(Teich): 142.8 ml LVPWd: 0.93 cmESV(Teich): 77.4 ml Ao root area: 9.1 cm2 EF(Teich): 45.8 % LA dimension: 3.4 cm LVOT diam: 2.3 cm LVOT area: 4.0 cm2 Doppler Measurements & Calculations MV E max therese: MV P1/2t max therese: Ao V2 max: AI max therese: 57.6 cm/sec 58.3 cm/sec 113.9 cm/sec 420.8 cm/sec MV A max therese: MV P1/2t: 72.6 msec Ao max PG: AI max P.1 cm/sec MVA(P1/2t): 3.0 cm2 5.2 mmHg 70.8 mmHg MV E/A: 0.65 MV dec slope: MARIA C(V,D): 3.0 cm2 AI dec slope: 235.1 cm/sec2 235.2 cm/sec2 AI P1/2t: 524.1 msec LV V1 max PG: PA V2 max: TR max therese: 2.9 mmHg 81.4 cm/sec 251.1 cm/sec LV V1 max: PA max P.7 mmHg TR max P.7 cm/sec 25.2 mmHg Left Ventricle The left ventricle is grossly normal size. There is borderline concentric left ventricular hypertrophy. Left ventricular systolic function is borderline reduced. LV EF is 50%. Doppler measurements suggest pseudonormalized left ventricular relaxation, which is associated with grade II/IV or mild to moderate diastolic dysfunction. Wall motion cannot be accurately commented on, but no definite regional wall motion abnormalities noted. Right Ventricle The right ventricle is grossly normal size. There is normal right ventricular wall thickness. The right ventricular systolic function is normal. Atria The right atrium is normal in size. The left atrium is borderline dilated. Interarterial septum not well visualized and not well dopplered. Cannot comment on ASD/PFO presence. Mitral Valve The mitral valve is grossly normal. There is no mitral valve stenosis. There is a mild amount of mitral regurgitation. Aortic Valve The aortic valve opens well. There is no aortic valve stenosis. There is a mild amount of aortic regurgitation. Tricuspid Valve The tricuspid valve is not well visualized, but is grossly normal. There is no tricuspid stenosis. There is a mild amount of tricuspid regurgitation. Right ventricular systolic pressure is at the upper limits of normal. Pulmonic Valve The pulmonic valve is not well visualized. Great Vessels The aortic root is not well visualized but is probably normal size. The inferior vena cava appeared normal and decreased > 50% with respiration (RAP 5-10 mmHg). Effusions There is no pericardial effusion. : CORINE ROPER > Ifeanyi Porras
--- NOTE | 2017-08-08 11:00 | PDOC DISCHARGE SUMMARY ---
General - Admit/Disc Date/PCP Admission Date/Primary Care Provider: 08/05/17 17:03 LEANDRA OTERO MD Discharge Date: 08/08/17 - Discharge Diagnosis (1) Tachycardia Is this a current diagnosis for this admission?: Yes Summary: Secondary to A. fib: patient placed on metoprolol. Heart rate has been better controlled. (2) Sepsis Is this a current diagnosis for this admission?: Yes Summary: Secondary to left upper lobe pneumonia most likely aspiration pneumonia: Resolved. Patient continued on Levaquin for discharge home. (3) Pneumonia Is this a current diagnosis for this admission?: Yes Summary: Secondary to aspiration pneumonia most likely gram-negative organism: We will continue with Levaquin. (4) Acute kidney injury superimposed on chronic kidney disease Is this a current diagnosis for this admission?: Yes Summary: Secondary to dehydration: Resolved. (5) Emesis Is this a current diagnosis for this admission?: Yes Summary: Resolved. Will send patient home with as needed Zofran (6) Constipation Is this a current diagnosis for this admission?: Yes Summary: Patient placed on Colace and MiraLAX (7) Hyperkalemia Is this a current diagnosis for this admission?: Yes Summary: Resolved. (8) COPD (chronic obstructive pulmonary disease) Is this a current diagnosis for this admission?: Yes Summary: No acute exacerbation at time of admission. (9) Tobacco dependence Is this a current diagnosis for this admission?: Yes Summary: Encourage discontinuation of tobacco use. (10) Moderate protein malnutrition Is this a current diagnosis for this admission?: Yes Summary: Patient on mechanical soft diet with ground meats and recommend supplemental drinks. (11) Paroxysmal a-fib Is this a current diagnosis for this admission?: Yes Summary: Patient on Eliquis and metoprolol. (12) Dysphagia Is this a current diagnosis for this admission?: Yes Summary: Patient placed on mechanical soft diet with ground meats (13) Moderate protein-calorie malnutrition Is this a current diagnosis for this admission?: Yes Summary: Encourage supplemental drinks. - Additional Information Resuscitation Status: Full Code Prescriptions: Levofloxacin [Levaquin 750 mg Tablet] 750 mg PO DAILY #5 tablet Metoprolol Succinate [Toprol Xl 25 mg Tab.sr] 25 mg PO Q12 #60 tab.sr.24h Home Medications: Apixaban [Eliquis 5 mg Tablet] 5 mg PO Q12 08/05/17 Fluticasone/Salmeterol [Advair 250-50 Diskus 28 dose] 1 puff IH Q12 08/05/17 Ipratropium/Albuterol Sulfate [Combivent Respimat 4 gm Mdi] 1 puff IH QIDP PRN 08/05/17 Lisinopril [Prinivil 10 mg Tablet] 10 mg PO DAILY 08/05/17 Mirtazapine 7.5 mg PO QHS 08/05/17 Tamsulosin HCl [Flomax 0.4 mg Cap.sr] 0.4 mg PO DAILY 08/05/17 Docusate Sodium [Colace 100 mg Capsule] 100 mg PO DAILY capsule 08/08/17 Levofloxacin [Levaquin 750 mg Tablet] 750 mg PO DAILY #5 tablet 08/08/17 Metoprolol Succinate [Toprol Xl 25 mg Tab.sr] 25 mg PO Q12 #60 tab.sr.24h Piperacillin Sodium/Tazobactam [Zosyn Inj 3.375 gm Vial] 3.375 gm IV Q6A vial 08/08/17 History of Present Illness Patient complains of: Fever History of Present Illness: TREY DAWSON is a 67 year old male presents to the emergency room with report of fever. No family at bedside and patient is a poor historian. Contacted Ms. Ervin who states that pt was vomiting 3 weeks ago due to pt being constipated. She states that when he got home he was still complaining of abd pain. She states that she has been giving him suppository and now has diarrhea. Ms. Ervin states that she would like for [facility] to bring home at time of discharge. Hospital Course Hospital Course: Patient is a 67-year-old gentleman that was admitted to our facility for fever. Patient was found to have a left upper lobe infiltrate. Patient was also noted to be septic. When speaking to patient's caregiver she reported that patient had been vomiting at home for the last 3 weeks. With this information felt the patient's presentation was most likely consistent with aspiration pneumonia. Patient's caregiver also reported the patient had been constipated and therefore she felt that this was contributing to him vomiting. Patient was admitted to the hospital placed on IV antibiotics white count trended down patient was also given IV fluids for volume expansion due to acute renal injury. Patient's electrolytes and renal function returned to baseline and white count trended to normal level. Patient was discharged home on Levaquin. Patient was noted to have episode of tachycardia that was related to patient's A. fib. Patient was seen by cardiology and was placed on metoprolol and heart rate has been under good control. PT OT work with patient and recommended that patient required 2 person assist this was discussed with patient's caregiver and she stated that he has full support at home and does not want him going into rehab. Physical Exam Vital Signs: Temp Pulse Resp BP Pulse Ox 97.5 F 69 15 134/69 H 99 08/08/17 07:56 08/08/17 07:56 08/08/17 07:56 08/08/17 07:56 08/08/17 07:56 Intake & Output 08/07/17 08/08/17 08/09/17 06:59 06:59 06:59 Intake Total 3926 2000 Balance 3926 2000 Weight 61.7 kg 61.7 kg General appearance: PRESENT: no acute distress, thin, well-developed Head exam: PRESENT: atraumatic, normocephalic Eye exam: PRESENT: conjunctiva pink, EOMI. ABSENT: scleral icterus Ear exam: PRESENT: normal external ear exam Mouth exam: PRESENT: dry mucosa Neck exam: ABSENT: carotid bruit, JVD, lymphadenopathy, thyromegaly Respiratory exam: PRESENT: clear to auscultation gera. ABSENT: rales, rhonchi, wheezes Cardiovascular exam: PRESENT: RRR. ABSENT: diastolic murmur, rubs, systolic murmur Pulses: PRESENT: normal dorsalis pedis pul Vascular exam: PRESENT: normal capillary refill GI/Abdominal exam: PRESENT: normal bowel sounds, soft. ABSENT: distended, guarding, mass, organolmegaly, rebound, tenderness Rectal exam: PRESENT: deferred Extremities exam: ABSENT: calf tenderness, clubbing, pedal edema Neurological exam: PRESENT: alert, awake, oriented to person. ABSENT: motor sensory deficit Psychiatric exam: PRESENT: appropriate affect, normal mood. ABSENT: homicidal ideation, suicidal ideation Skin exam: PRESENT: dry, intact, warm. ABSENT: cyanosis, rash Results Laboratory Results: 08/08/17 04:12 08/08/17 04:12 03/26/18 03/26/18 04:12 04:12 WBC 8.1 RBC 4.28 L Hgb 11.8 L Hct 36.1 L MCV 84 MCH 27.6 MCHC 32.7 RDW 13.3 Plt Count 271 Seg Neutrophils % 62.0 Lymphocytes % 28.9 Monocytes % 6.7 Eosinophils % 1.6 Basophils % 0.8 Absolute Neutrophils 5.0 Absolute Lymphocytes 2.3 Absolute Monocytes 0.5 Absolute Eosinophils 0.1 Absolute Basophils 0.1 Sodium 137.7 Potassium 3.6 Chloride 107 Carbon Dioxide 21 L Anion Gap 10 BUN 11 Creatinine 0.77 Est GFR ( Amer) > 60 Est GFR (Non-Af Amer) > 60 Glucose 67 L Calcium 9.0 Magnesium 1.6 Total Bilirubin 0.8 AST 17 ALT 22 Alkaline Phosphatase 76 Total Protein 6.8 Albumin 3.1 L Impressions: Renal Ultrasound 08/05/17 00:00 IMPRESSION: 1. No definite sonographic abnormality identified in the kidneys. Chest X-Ray 08/05/17 12:21 IMPRESSION: NO ACUTE RADIOGRAPHIC FINDING IN THE CHEST. Abdomen/Pelvis CT 08/05/17 12:43 IMPRESSION: Left upper lobe pneumonia at the upper edge of the field of view. Otherwise unremarkable CT abdomen and pelvis. Qualifiers - * PATEINT BEING DISCHARGED WITH ANY OF THE FOLLOWING DIAGNOSIS?: No Plan Time Spent: Greater than 30 Minutes
--- NOTE | 2017-08-08 11:14 | PDOC PROGRESS REPORT ---
Subjective Progress Note for:: 08/08/17 Subjective:: Patient seems to be doing better with gradual improvement. Patient today was able to speak and wanting to go home. Pt is denying any chest arm or neck discomfort. Patient denying any PND, orthopnea. Patient denied any sustained palpitations, dizziness, syncope, near syncope. Patient denying any fever chills. Patient denying any other significant discomfort. Patient is maintaining sinus rhythm. Review of systems: Rest review of systems negative. Patient has history of dense left-sided hemiparesis Medications: Medications have been reviewed. Reason For Visit: LEFT UPPER LOBE PNEUMONIA Physical Exam Vital Signs: Temp Pulse Resp BP Pulse Ox 97.5 F 70 14 134/69 H 98 08/08/17 07:56 08/08/17 10:30 08/08/17 10:30 08/08/17 07:56 08/08/17 10:30 Intake & Output 08/07/17 08/08/17 08/09/17 06:59 06:59 06:59 Intake Total 3926 1999 Balance 3926 1999 Weight 61.7 kg 61.7 kg Exam: GENERAL: well-nourished and in no acute distress. Alert and oriented x2 HEAD: Atraumatic, normocephalic. EYES: Pupils equal round and reactive to light, extraocular movements intact, sclera anicteric, conjunctiva are normal. ENT: TMs normal, nares patent, oropharynx clear without exudates. Moist mucous membranes. No oral ulcerations or bleeding gums noted NECK: supple without lymphadenopathy. Trachea is central. No cervical or axillary lymphadenopathy noted. Carotids are 2+, JVD WNL LUNGS: Respiration seems nonlabored, no significant accessory muscle action noted. Breath sounds clear to auscultation bilaterally and equal noted. No wheezes rales or rhonchi noted. No significant dullness noted on percussion. CHEST: Palpation of the chest wall shows no significant chest wall tenderness. No other significant abnormalities noted. 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 ABDOMEN: Soft, no significant tenderness appreciated, normoactive bowel sounds. No guarding, no rebound. No rigidity noted . No masses appreciated. EXTREMITIES: Pedal pulses are 1-2+, no calf tenderness noted. No clubbing or cyanosis.trace to 1+ pedal edema noted NEUROLOGICAL: Focused neurological exam dense left-sided hemiparesis. Patient was noted to have normal speech today. PSYCH: Normal mood, normal affect. Judgment was not checked. SKIN: No significant ecchymosis, skin is noted to be warm. MUSCULOSKELETAL EXAM: No significant acute joint swelling noted. Results Laboratory Results: 08/08/17 04:12 08/08/17 04:12 08/08/17 08/08/17 04:12 04:12 WBC 8.1 RBC 4.28 L Hgb 11.8 L Hct 36.1 L MCV 84 MCH 27.6 MCHC 32.7 RDW 13.3 Plt Count 271 Seg Neutrophils % 62.0 Lymphocytes % 28.9 Monocytes % 6.7 Eosinophils % 1.6 Basophils % 0.8 Absolute Neutrophils 5.0 Absolute Lymphocytes 2.3 Absolute Monocytes 0.5 Absolute Eosinophils 0.1 Absolute Basophils 0.1 Sodium 137.7 Potassium 3.6 Chloride 107 Carbon Dioxide 21 L Anion Gap 10 BUN 11 Creatinine 0.77 Est GFR ( Amer) > 60 Est GFR (Non-Af Amer) > 60 Glucose 67 L Calcium 9.0 Magnesium 1.6 Total Bilirubin 0.8 AST 17 ALT 22 Alkaline Phosphatase 76 Total Protein 6.8 Albumin 3.1 L EKG Comments: Telemetry shows sinus rhythm without any sustained tachycardia or bradycardia. Impressions: Renal Ultrasound 08/05/17 00:00 IMPRESSION: 1. No definite sonographic abnormality identified in the kidneys. Chest X-Ray 08/05/17 12:21 IMPRESSION: NO ACUTE RADIOGRAPHIC FINDING IN THE CHEST. Abdomen/Pelvis CT 08/05/17 12:43 IMPRESSION: Left upper lobe pneumonia at the upper edge of the field of view. Otherwise unremarkable CT abdomen and pelvis. Assessment & Plan - Diagnosis (1) Tachycardia Is this a current diagnosis for this admission?: Yes (2) Pneumonia Qualifiers: Pneumonia type: due to unspecified organism Lung location: lower lobe of lung Is this a current diagnosis for this admission?: Yes (3) COPD (chronic obstructive pulmonary disease) Qualifiers: COPD type: unspecified COPD Qualified Code(s): J44.9 - Chronic obstructive pulmonary disease, unspecified Is this a current diagnosis for this admission?: Yes (4) Hypertension Qualifiers: Hypertension type: essential hypertension Qualified Code(s): I10 - Essential (primary) hypertension Is this a current diagnosis for this admission?: Yes (5) Paroxysmal a-fib Is this a current diagnosis for this admission?: Yes - Notes Notes: Narrow complex tachycardia: Patient noted to have sinus tachycardia on admission however subsequent EKG suggest presence of underlying atrial flutter fibrillation with rapid ventricular response. Patient does have history of paroxysmal atrial fibrillation and currently on Eliquis therapy. At this point agree with beta-anahi therapy. May give IV metoprolol or IV Cardizem if there are recurrent spells. 2D echocardiogram shows LV EF at approximately 50% with mild mitral regurgitation, mild aortic and mild tricuspid regurgitation Pneumonia: Patient on antibiotic therapy. Currently seems to be maintaining good oxygenation. COPD: It seems patient has a history of tobacco abuse. Patient will benefit from tobacco cessation. Continue with bronchodilator and steroid therapy as needed. Hypertension: Blood pressure under satisfactory control. It may be worthwhile to consider event monitor as an outpatient. - Time Time with patient: 15-25 minutes - CODE STATUS was discussed, patient remains full code. Surrogate decision-maker unchanged. Multiple medical problems were addressed. More than 50% of the time spent coordinating care, discussing management plans with involved caregivers. Management plans discussed with involved personnels. Medical decision making was of moderate to high complexity , patient's has multiple comorbidities. Medications reviewed and adjusted accordingly: Yes
[2017-08-08] MEDS: NICOTINE 21 MG/24 HR PATCH.TD24 TD SCH (11:49)
[2017-08-08] MEDS: METOPROLOL SUCCINATE 25 MG TAB.SR.24H PO SCH (11:51)
[2017-08-08] MEDS: DOCUSATE SODIUM 100 MG CAPSULE PO SCH (12:08)
[2017-08-08 12:16] VITALS: BP 133/80
[2017-08-08] MEDS ORDERED: MIRTAZAPINE 15 MG TABLET PO SCH (22:00)
[2017-08-09] MEDS ORDERED: LANSOPRAZOLE 30 MG TAB.RAP.DR PO SCH (06:00)
[2017-08-09] MEDS ORDERED: TAMSULOSIN HCL 0.4 MG CAP.SR.24H PO SCH (16:00)
== END 2017-08-08 13:43 | disposition home health service (06) | DRG 871 ==
LOC: ER 11:13 → EH 17:03 → 4N 18:15
PROVIDERS: ADMIT Emergency Medicine; ATTEND Emergency Medicine
PROC: 3E0F73Z Introduction of Anti-inflammatory into Respiratory Tract, Via Natural or Artificial Opening (ICD-10-PCS; principal; 2017-08-05)
DX: A41.9 Sepsis, unspecified organism (principal); J69.0 Pneumonitis due to inhalation of food and vomit; N17.9 Acute kidney failure, unspecified; E44.0 Moderate protein-calorie malnutrition; I48.0 Paroxysmal atrial fibrillation; E86.0 Dehydration; I12.9 Hypertensive chronic kidney disease with stage 1 through stage 4 chronic kidney disease, or unspecified chronic kidney disease; N18.9 Chronic kidney disease, unspecified; F17.200 Nicotine dependence, unspecified, uncomplicated; F32.9 Major depressive disorder, single episode, unspecified; K59.00 Constipation, unspecified; E87.5 Hyperkalemia; R13.10 Dysphagia, unspecified; R00.0 Tachycardia, unspecified; J44.9 Chronic obstructive pulmonary disease, unspecified; Z88.8 Allergy status to other drugs, medicaments and biological substances; Z82.49 Family history of ischemic heart disease and other diseases of the circulatory system; Z86.718 Personal history of other venous thrombosis and embolism
CPT/HCPCS: 36415; 71045; 74177; 76770; 80053; 81001; 82803; 83605; 83735; 84439; 84443; 85025; 85610; 85730; 87040; 87086; 93005; 93010; 93306; 94640; 96361; 96365; 96375; 99285; G8978-GP; G8979-GP; G8996-GN; G8997-GN; G8998-GN; J0456; J0696; J2543; J3490; J7030; J7120; J7620

== ENCOUNTER 2017-08-12 15:44 | Emergency (ER) | payer MEDICARE, MEDICAID ==
[2017-08-12] MEDS ORDERED: DEXAMETHASONE SOD PHOS INJ 10 MG/1 ML VIAL IM ONE (16:40)
[2017-08-12] MEDS ORDERED: IPRATROPIUM/ALBUTEROL 0.5-2.5 MG/3 ML AMPUL NEB ONE (16:40)
--- NOTE | 2017-08-12 16:40 | ER Document Report ---
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 Patient was admitted to the hospital on August 05 for a left upper lobe pneumonia which was believed to be aspiration pneumonia due to vomiting that he had prior. Patient was admitted for 3 days and was treated with IV antibiotics. Patient was discharged on August 08 4 days ago and was placed on Levaquin to start as an outpatient. Caregiver states that they were unable to picker/puller his medication until today. Patient did take his first dose of his Levaquin this morning. Patient states that he has been eating and drinking without any difficulties. He is urinating normally and having normal bowel movements. Caregivers have not noticed any other distress or changes to his health. Caregivers state that he is still eating cookies and drinking his Ensure. Denies any drug allergies. Patient has not been smoking over the last 3 days. No other concerns or complaints at this time. Per caregivers as well: Denies any headache, fever, neck pain, URI, sore throat, chest pain, palpitations, syncope, abdominal pain, nausea/vomiting/diarrhea, urinary retention, dysuria, hematuria, or rash. - ROS Systems Reviewed and Negative: Yes All other systems reviewed and negative - REPRODUCTIVE Reproductive: DENIES: : Past Medical History - Social History Smoking Status: Smoker,Current Status Unk - has not smoked in 3 days per caregivers Family History: CAD, COPD - Past Medical History Cardiac Medical History: Reports: Hx Atrial Fibrillation, Hx DVT, Hx Hypercholesterolemia, Hx Hypertension Pulmonary Medical History: Reports: Hx COPD Neurological Medical History: Reports: Hx Cerebrovascular Accident - clot, 2016 Renal/ Medical History: Denies: Hx Peritoneal Dialysis Psychiatric Medical History: Reports: Hx Depression - Immunizations Hx Diphtheria, Pertussis, Tetanus Vaccination: No Vertical Provider Document - CONSTITUTIONAL Agree With Documented VS: Yes Notes: PHYSICAL EXAMINATION: GENERAL: Well-appearing, well-nourished and in no acute distress. HEAD: Atraumatic, normocephalic. EYES: Pupils equal round and reactive to light, extraocular movements intact, sclera anicteric, conjunctiva are normal. ENT: EAC clear b/l. TM's intact b/l without erythema, fluid, or perforation. Nares patent and without discharge. oropharynx clear without exudates. No tonsilar hypertrophy or erythema. Moist mucous membranes. NECK: Normal range of motion, supple without lymphadenopathy LUNGS: Dec breath sounds b/l. No significant wheezes rales or rhonchi. HEART: Regular rate and rhythm without murmurs, rubs, gallops. ABDOMEN: Soft, nontender, nondistended abdomen. No guarding, no rebound. No masses appreciated. Normal bowel sounds present. No CVA tenderness bilaterally. Extremities: No cyanosis, clubbing, or edema b/l. Peripheral pulses 2+. Capillary refill less than 3 seconds. NEUROLOGICAL: grossly normal sensory, motor exams--left sided weakness and speech issues s/p CVA (latest December). PSYCH: Normal mood, normal affect. SKIN: Warm, Dry, normal turgor, no rashes or lesions noted. - INFECTION CONTROL TRAVEL OUTSIDE OF THE [place] IN LAST 30 DAYS: No Course - Re-evaluation Re-evalutation: 08/12/17 17:28 Patient is an afebrile, well-hydrated, 67-year-old male who presents to the ED with a cough, suspect viral versus remnant bacterial from hospital stay. Vitals are acceptable. PE is otherwise unremarkable. Chest x-ray was unremarkable for any acute pathology. Patient is tolerating p.o. without any difficulties. Patient has not had any significant tachycardia, hypoxia, tachypnea, or temperature. Patient has no chest pain, shortness of breath, or dyspnea concerns at this time. Patient is nontoxic-appearing and is in no acute distress. No other labs or imaging warranted at this time based on H&P. Patient just began taking his Levaquin this morning when he was supposed to be on it for the last several days. Low suspicion for any ACS, PE, pneumothorax, pericarditis, dissection, respiratory compromise, severe dehydration, sepsis, meningitis, or other systemic emergent condition at this time. Patient is aware that his condition can change from initial presentation and he needs to monitor symptoms closely and seek medical attention for any acute changes. Recommend conservative measures for symptoms. Recheck with your PCM in 3-5 days. Return to the ED with any worsening/concerning symptoms otherwise as reviewed in discharge. Patient/caregivers in agreement. - Vital Signs Vital signs: Temp Pulse Resp BP Pulse Ox 98.8 F 84 14 156/86 H 96 08/12/17 16:07 08/12/17 16:07 08/12/17 16:07 08/12/17 16:07 08/12/17 16:07 Discharge - Discharge Clinical Impression: Cough Condition: Stable Disposition: HOME, SELF-CARE Additional Instructions: Maintain adequate fluid intake Take meds as directed tylenol/ibuprofen as needed over the counter cold medication as needed for symptoms--may try mucinex Humidified air may help Wash your hands regularly Wear a mask when coughing F/u: with your PCM in 3-5 days for a recheck Return to the ED with any fever, worsening pain, chest pain, palpitations, syncope, worsening [place], neck pain/stiffness, shortness of breath, wheezing, drooling, trouble swallowing/breathing, abdominal pain, n/v/d, rash, or worsening/concerning symptoms otherwise. Forms: Elevated Blood Pressure, Smoking Cessation Education Referrals: ERICH MCCURDY MD [Primary Care Provider] - 08/15/17
[2017-08-12 17:11] VITALS: BP 160/88
--- NOTE | 2017-08-12 17:18 | RADIOLOGY REPORT (SQ) ---
EXAM DESCRIPTION: CHEST PA/LAT COMPLETED DATE/TIME: 08/12/2017 5:02 pm REASON FOR STUDY: cough COMPARISON: 12/25/2015 EXAM PARAMETERS: NUMBER OF VIEWS: two views TECHNIQUE: Digital Frontal and Lateral radiographic views of the chest acquired. RADIATION DOSE: NA LIMITATIONS: none FINDINGS: LUNGS AND PLEURA: No opacities, masses or pneumothorax. No pleural effusion. MEDIASTINUM AND HILAR STRUCTURES: No masses or contour abnormalities. HEART AND VASCULAR STRUCTURES: Heart size is borderline. There is no evidence of failure. BONES: No acute findings. HARDWARE: None in the chest. OTHER: No other significant finding. IMPRESSION: Borderline cardiomegaly with no failure. No acute pulmonary infiltrate is seen. TECHNICAL DOCUMENTATION: JOB ID: [id number] [employer]- All Rights Reserved Reading location - IP/workstation name: [email or web address]
== END 2017-08-12 17:37 | disposition home or self-care (01) ==
LOC: ER 15:44
DX: R05 Cough (principal); R53.83 Other fatigue; I48.91 Unspecified atrial fibrillation; J44.9 Chronic obstructive pulmonary disease, unspecified; I10 Essential (primary) hypertension; Z86.73 Personal history of transient ischemic attack (TIA), and cerebral infarction without residual deficits; Z79.899 Other long term (current) drug therapy; F17.200 Nicotine dependence, unspecified, uncomplicated
CPT/HCPCS: 94640; 99285; 96372; 71046; J1100; A9270; J7620

== ENCOUNTER → 2017-09-01 | Outpatient (CLI) | payer MEDICARE, MEDICAID ==
[2017-09-01 12:22] LABS: ABSOLUTE EOSINOPHILS # (AUTO) 0.2 10^3/uL (0.0-0.6); ABSOLUTE LYMPHOCYTES (AUTO) 2.3 10^3/uL (0.5-4.7); ABSOLUTE MONOCYTES (AUTO) 0.5 10^3/uL (0.1-1.4); ABSOLUTE NEUT (AUTO) 3.5 10^3/uL (1.7-8.2); BASOPHILS % (AUTO) 0.2 % (0-2); EOSINOPHILS % (AUTO) 2.4 % (0-6); HEMOGLOBIN 12.1 g/dL (13.5-17.0); LYMPHOCYTES % (AUTO) 35.3 % (13-45); MEAN CORPUSCULAR HEMOGLOBIN 27.3 pg (27.0-33.4); MEAN CORPUSCULAR HGB CONC 32.8 g/dL (32.0-36.0); MEAN CORPUSCULAR VOLUME 83 fl (80-97); MONOCYTES % (AUTO) 8.4 % (3-13); PLATELET COUNT 265 10^3/uL (150-450); RED BLOOD COUNT 4.44 10^6/uL (4.35-5.55); RED CELL DISTRIBUTION WIDTH 13.4 % (11.5-14.0); SEGMENTED NEUTROPHILS % (AUTO) 53.7 % (42-78); TOTAL CELLS COUNTED % (AUTO) 100 %; WHITE BLOOD COUNT 6.4 10^3/uL (4.0-10.5)
[2017-09-01 12:42] LABS: ALANINE AMINOTRANSFERASE 19 U/L (21-72); ALKALINE PHOSPHATASE 88 U/L (38-126); ANION GAP 16 (5-19); ASPARTATE AMINO TRANSFERASE 15 U/L (17-59); BILIRUBIN,DIRECT 0.3 mg/dL (0.0-0.4); BILIRUBIN,TOTAL 0.5 mg/dL (0.2-1.3); BLOOD UREA NITROGEN 16 mg/dL (7-20); CALCIUM 9.7 mg/dL (8.4-10.2); CARBON DIOXIDE 24 mmol/L (22-30); CHLORIDE 106 mmol/L (98-107); CHOLESTEROL 152.95 mg/dL (0-200); GLUCOSE 110 mg/dL (75-110); POTASSIUM 3.9 mmol/L (3.6-5.0); SODIUM 146.2 mmol/L (137-145); TOTAL PROTEIN 7.9 g/dL (6.3-8.2); TRIGLYCERIDES 44 mg/dL (<150)
[2017-09-01 12:53] LABS: DIRECT LDL 100 mg/dL (<100)
== END ==
LOC: OD 11:29
PROVIDERS: ATTEND Family Medicine Geriatric Medicine
DX: I10 Essential (primary) hypertension (principal); F17.200 Nicotine dependence, unspecified, uncomplicated; I67.0 Dissection of cerebral arteries, nonruptured; Z79.899 Other long term (current) drug therapy
CPT/HCPCS: 36415; 80053; 80061; 84443; 85025

== ENCOUNTER 2017-09-06 15:51 | Day surgery (SDC) | payer MEDICARE, MEDICAID ==
[~2017-09-06 15:51] MED LIST: MIDAZOLAM 2 MG/2 ML INJ ONE; NALOXONE HCL INJ/PF 0.4 MG/1 ML SDV ONE
[2017-09-06] MEDS ORDERED: EPINEPHRINE INJ 1 MG/10 ML DISP.SYRIN ONE (15:52)
[2017-09-06] MEDS ORDERED: GLUCAGON,HUMAN RECOMB 1 MG INJ ONE (15:52)
[2017-09-06] MEDS ORDERED: FLUMAZENIL INJ 0.5 MG/5 ML VIAL ONE (15:52)
[2017-09-06] MEDS: FENTANYL CITRATE INJ/PF 100 MCG/2 ML AMPUL ONE ×2 (17:26→17:38)
--- NOTE | 2017-09-06 18:02 | Operative Report ---
Operative Report DATE OF SURGERY: 09/06/17 Operative Report: Pre-op diagnosis: Colon cancer screening and epigastric pain Post-op diagnosis: 1. Mild antral gastritis 2. Polyps in the cecum and descending colon Surgery: Upper endoscopy with biopsy and Colonoscopy with polypectomy Medications: Versed mg, 2Fentanyl 50mcg IV push Tissue removed: Antral and gastric body biopsy, colon polyps Procedure: After informed consent obtained from patient family, patient's pharynx was sprayed with Hurricane and conscious sedation was achieved. The upper endoscope was then inserted into the esophagus under direct vision and advanced into the stomach and further into the duodenum. Detailed examination of the duodenum, stomach and the esophagus was then performed. A digital rectal examination was performed and this was unremarkable. The colonoscope was inserted into the rectum and advanced to the cecum. The appendiceal orifice and the terminal ileum were both identified. The mucosa was examined into details as the colonoscope was slowly pulled out of the patient. The endoscope was retroflexed in the rectum. Patient tolerated the procedure well. Findings Esophagus: Normal Stomach: Mild erythema in the gastric antrum. Biopsy was taken from the antrum and body to rule out H. pylori infection Duodenum: Normal Cecum: 4 mm polyp removed with a hot snare Ascending colon: Normal Transverse colon: Normal Descending colon: 9 mm polyp removed with a hot snare Sigmoid colon: Normal Rectum: Normal except for internal hemorrhoids Plan: Await pathology. Resume Eliquis tomorrow OPERATION: .
[2017-09-06 18:52] VITALS: BP 172/100
== END 2017-09-06 18:55 | disposition home or self-care (01) ==
LOC: END 15:51
PROVIDERS: ATTEND Internal Medicine Gastroenterology
PROC: 0DB68ZX Excision of Stomach, Via Natural or Artificial Opening Endoscopic, Diagnostic (ICD-10-PCS; principal; 2017-09-06 16:15)
PROC: 0DBH8ZX Excision of Cecum, Via Natural or Artificial Opening Endoscopic, Diagnostic (ICD-10-PCS; 2017-09-06 16:15)
DX: Z12.11 Encounter for screening for malignant neoplasm of colon (principal); D12.0 Benign neoplasm of cecum; D12.4 Benign neoplasm of descending colon; K64.8 Other hemorrhoids; K29.50 Unspecified chronic gastritis without bleeding
CPT/HCPCS: 43239; 45385; 88341 ×2; 88305 ×2; J2250; J3010; J0171; J1610; J2310; J3490

== ENCOUNTER → 2017-09-19 | Outpatient (CLI) | payer MEDICARE, MEDICAID | LOC: OD 16:29 | PROVIDERS: ATTEND Physician Assistant Surgical | DX: K31.89 Other diseases of stomach and duodenum (principal) | CPT/HCPCS: 36415 ==

== ENCOUNTER 2017-10-10 22:09 | Emergency (ER) | payer MEDICARE, MEDICAID ==
[2017-10-11 02:38] LABS: ABSOLUTE BASOPHILS # (AUTO) 0.1 10^3/uL (0.0-0.2); ABSOLUTE EOSINOPHILS # (AUTO) 0.1 10^3/uL (0.0-0.6); ABSOLUTE LYMPHOCYTES (AUTO) 1.3 10^3/uL (0.5-4.7); ABSOLUTE MONOCYTES (AUTO) 0.7 10^3/uL (0.1-1.4); ABSOLUTE NEUT (AUTO) 6.7 10^3/uL (1.7-8.2); BASOPHILS % (AUTO) 1.1 % (0-2); EOSINOPHILS % (AUTO) 1.4 % (0-6); HEMATOCRIT 39.3 % (37.9-51.0); HEMOGLOBIN 12.9 g/dL (13.5-17.0); LYMPHOCYTES % (AUTO) 14.8 % (13-45); MEAN CORPUSCULAR HEMOGLOBIN 27.5 pg (27.0-33.4); MEAN CORPUSCULAR HGB CONC 32.8 g/dL (32.0-36.0); MEAN CORPUSCULAR VOLUME 84 fl (80-97); PLATELET COUNT 223 10^3/uL (150-450); RED BLOOD COUNT 4.68 10^6/uL (4.35-5.55); RED CELL DISTRIBUTION WIDTH 13.9 % (11.5-14.0); SEGMENTED NEUTROPHILS % (AUTO) 74.7 % (42-78); TOTAL CELLS COUNTED % (AUTO) 100 %
--- NOTE | 2017-10-11 03:09 | RADIOLOGY REPORT (SQ) ---
EXAM DESCRIPTION: Acute abdominal series CLINICAL HISTORY: abdominal pain/cough COMPARISON: None. FINDINGS: Single view chest with upright and spine views of the abdomen. Atherosclerotic calcification and tortuosity of thoracic aorta. Heart is not enlarged. Low lung volumes. Leads overlie the chest. No consolidation, pneumothorax, or pleural effusion. Bowel: No dilated loops of large or small bowel. Peritoneum: No free intraperitoneal air identified. Solid organs: No definite organomegaly. Calcifications: No abnormal calcifications. Bones: Degenerative change of the spine. No acute osseous abnormalities. Other: Leads overlie the abdomen. IMPRESSION: 1. No acute pulmonary process. Nonobstructive bowel gas pattern.
[2017-10-11 04:05] LABS: ALANINE AMINOTRANSFERASE 17 U/L (21-72); ALBUMIN 3.8 g/dL (3.5-5.0); ALKALINE PHOSPHATASE 80 U/L (38-126); ANION GAP 15 (5-19); ASPARTATE AMINO TRANSFERASE 17 U/L (17-59); BILIRUBIN,DIRECT 0.5 mg/dL (0.0-0.4); BILIRUBIN,TOTAL 0.6 mg/dL (0.2-1.3); BLOOD UREA NITROGEN 22 mg/dL (7-20); CALCIUM 9.4 mg/dL (8.4-10.2); CARBON DIOXIDE 24 mmol/L (22-30); CHLORIDE 110 mmol/L (98-107); GLUCOSE 111 mg/dL (75-110); POTASSIUM 4.1 mmol/L (3.6-5.0); SODIUM 148.8 mmol/L (137-145); TOTAL PROTEIN 7.9 g/dL (6.3-8.2)
[2017-10-11 06:23] LABS: APPEARANCE,URINE SLIGHTLY-CLOUDY; BILIRUBIN,URINE NEGATIVE (NEGATIVE); GLUCOSE, URINE NEGATIVE (NEGATIVE); KETONES,URINE TRACE mg/dL (NEGATIVE); LEUKOCYTE ESTERASE,URINE MODERATE (NEGATIVE); NITRITE,URINE NEGATIVE (NEGATIVE); PROTEIN,URINE 30 mg/dL (NEGATIVE); URINE SPECIFIC GRAVITY 1.029
[2017-10-11 06:28] LABS: COLOR,URINE YELLOW
[2017-10-11 06:31] VITALS: BP 138/97
[2017-10-11] MEDS ORDERED: CEPHALEXIN 500 MG CAPSULE PO ONE (06:34)
--- NOTE | 2017-10-11 06:38 | ER Document Report ---
ED General - General Chief Complaint: Abdominal Pain Stated Complaint: ABDOMINAL PAIN Time Seen by Provider: 10/11/17 01:34 Mode of Arrival: Medic Information source: Patient, Relative Notes: 67-year-old male patient presenting with complaints of abdominal pain 1 year per EMS. Patient does have a history of a stroke with left-sided residual and patient is somewhat hard to understand. I made a phone call to patient's significant other to gather additional information to find out what brought him in. Patient's significant other reports that patient has had abdominal pain for 2 days patient has not had vomiting, diarrhea, fever or any dysuria that is reported P. She does report the patient had a recent respiratory illness with cough and nasal congestion. TRAVEL OUTSIDE OF THE [place] IN LAST 30 DAYS: No - Related Data Allergies/Adverse Reactions: No Known Allergies Allergy (Verified 09/06/17 16:11) Past Medical History - General Information source: Patient - Social History Smoking Status: Former Smoker Cigarette use (# per day): No Chew tobacco use (# tins/day): No Smoking Education Provided: No Frequency of alcohol use: None Drug Abuse: None Lives with: Alone Family History: CAD, COPD Patient has suicidal ideation: No Patient has homicidal ideation: No - Past Medical History Cardiac Medical History: Reports: Hx Atrial Fibrillation, Hx DVT, Hx Hypercholesterolemia, Hx Hypertension - ON MEDS Denies: Hx Coronary Artery Disease, Hx Heart Attack Pulmonary Medical History: Reports: Hx Asthma, Hx Bronchitis, Hx COPD - INHALERS PRN, Hx Pneumonia - MOST RECENTLY LAST MONTH Neurological Medical History: Reports: Hx Cerebrovascular Accident - 2X- 2016 AND 2017: L SIDE WEAKNESS & APHASIA. Denies: Hx Seizures Renal/ Medical History: Denies: Hx Peritoneal Dialysis Musculoskeltal Medical History: Reports Hx Arthritis Psychiatric Medical History: Reports: Hx Depression - Immunizations Hx Diphtheria, Pertussis, Tetanus Vaccination: No Hx Pneumococcal Vaccination: 06/16/17 Review of Systems - Review of Systems Constitutional: No symptoms reported EENT: No symptoms reported Cardiovascular: No symptoms reported Respiratory: No symptoms reported Gastrointestinal: See HPI Genitourinary: No symptoms reported Male Genitourinary: No symptoms reported Musculoskeletal: No symptoms reported Skin: No symptoms reported Hematologic/Lymphatic: No symptoms reported Neurological/Psychological: No symptoms reported Physical Exam - Vital signs Vitals: Temp Pulse Resp BP 98.3 F 89 16 117/72 10/10/17 22:41 10/10/17 22:41 10/10/17 22:41 10/10/17 22:41 - Notes Notes: PHYSICAL EXAMINATION: GENERAL: Cachectic male patient. HEAD: Atraumatic, normocephalic. EYES: Pupils equal round and reactive to light, extraocular movements intact, sclera anicteric, conjunctiva are normal. ENT: Nares patent, oropharynx clear without exudates. Moist mucous membranes. NECK: Normal range of motion, supple without lymphadenopathy LUNGS: Breath sounds clear to auscultation bilaterally and equal. No wheezes rales or rhonchi. HEART: Regular rate and rhythm without murmurs ABDOMEN: Soft, nontender, nondistended abdomen. No guarding, no rebound. No masses appreciated. Musculoskeletal: Normal range of motion, no pitting or edema. No cyanosis. NEUROLOGICAL: Cranial nerves grossly intact. Normal sensory, motor exams to right side, altered to left from previous stroke. PSYCH: Normal mood, normal affect. SKIN: Warm, Dry, normal turgor, no rashes or lesions noted. Course - Re-evaluation Re-evalutation: 67-year-old male patient from home presenting with abdominal pain 2 days. Patient does not have any vomiting, diarrhea,. Patient's significant other does report patient had a recent respiratory illness to include cough and congestion. Patient is alert and oriented however it is difficult to communicate with patient due to his previous history of a stroke with left- sided residual. Patient has hard of hearing. Acute abdominal series is negative for any consolidation in the lungs and is also negative for any evidence of constipation. CBC and comprehensive are otherwise unremarkable. Urinalysis reveals trace ketones, moderate leukocytes, 47 white blood cells and few white blood cell clumps. Patient will be treated for urinary tract infection and discharged home this patient's vital signs have remained stable throughout his visit. Patient will be [facility] be at [facility] and will have a wheelchair take him home. Patient's significant other is aware of this and understands plan of care. - Vital Signs Vital signs: Temp Pulse Resp BP Pulse Ox 98.3 F 89 17 138/97 H 10/10/17 22:41 10/10/17 22:41 10/11/17 06:47 10/11/17 05:01 - Laboratory Result Diagrams: 10/10/17 21:57 10/11/17 03:10 Laboratory results interpreted by me: 10/10/17 10/11/17 10/11/17 21:57 03:10 03:10 Hgb 12.9 L Sodium 148.8 H Chloride 110 H BUN 22 H Glucose 111 H Direct Bilirubin 0.5 H ALT 17 L Lipase 21.3 L Urine Protein Urine Ketones Urine Blood Urine Urobilinogen Ur Leukocyte Esterase 10/11/17 05:42 Hgb Sodium Chloride BUN Glucose Direct Bilirubin ALT Lipase Urine Protein 30 H Urine Ketones TRACE H Urine Blood MODERATE H Urine Urobilinogen 4.0 H Ur Leukocyte Esterase MODERATE H Discharge - Discharge Clinical Impression: Urinary tract infection Qualifiers: Urinary tract infection type: site unspecified Hematuria presence: without hematuria Qualified Code(s): N39.0 - Urinary tract infection, site not specified Condition: Stable Disposition: HOME, SELF-CARE Additional Instructions: Urinary Tract Infection Your evaluation indicates that you have a urinary tract infection. This is due to germs growing in the bladder. This is a common problem. This infection usually responds quickly to antibiotics. Your antibiotic should be taken exactly as prescribed. Drink plenty of fluids -- three to four quarts a day. Occasionally, a bladder anesthetic will be prescribed to help stop the feeling of urgency until the antibiotic has a chance to clear the infection. This may cause your urine to be dark orange. Certain urine infections require a culture. If the doctor obtained a culture, the results will be back in two days. You should call to see if a change in treatment is needed. A repeat urinalysis after you finish treatment is often recommended. The physician will let you know if further testing is required. Call the doctor if you develop fever, chills, flank pain, inability to urinate, or blood in the urine. Cephalexin The antibiotic you've been prescribed is a member of the cephalosporin class. This type of antibiotic covers a wide variety of infections, including those of the skin, lungs, and urinary tract. It's useful for staph infections. This antibiotic is slightly similar to the penicillin family. In rare cases , a person who is allergic to penicillin will also be allergic to this medication. If you have had a severe allergic reaction to penicillin, and have not taken this antibiotic since that time, notify your doctor. Antibiotics which cover many germs ("broad spectrum" antibiotics) are more likely to cause diarrhea or "yeast" infections. Women prone to vaginal yeast problems may suffer an attack after taking this antibiotic. In infants, oral thrush (white spots "stuck" on the cheek) or yeast diaper rash may result. See your doctor if these problems occur. Call at once if you develop itching, hives , shortness of breath, or lightheadedness. Please return to the emergency department department if you develop fever or you started vomiting. Please follow-up with your primary care provider in the next 3-5 days for a recheck of your urine. Prescriptions: Cephalexin Monohydrate [Keflex 500 mg Capsule] 500 mg PO Q6H 5 Days #20 capsule Referrals: ERICH MCCURDY MD [Primary Care Provider] - Follow up as needed
== END 2017-10-11 07:55 | disposition home or self-care (01) ==
LOC: ER 22:09
DX: N39.0 Urinary tract infection, site not specified (principal); R10.9 Unspecified abdominal pain; I10 Essential (primary) hypertension; J44.9 Chronic obstructive pulmonary disease, unspecified; Z87.891 Personal history of nicotine dependence; Z86.73 Personal history of transient ischemic attack (TIA), and cerebral infarction without residual deficits; Z79.899 Other long term (current) drug therapy
CPT/HCPCS: 99284; 51701; 36415; 87086; 83690; 85025; 80053; 81001; 74022; A9270

== ENCOUNTER 2017-10-18 10:58 | Emergency (ER) | payer MEDICARE, MEDICAID ==
[2017-10-18] MEDS ORDERED: ALBUTEROL SULFATE 0.083% NEB 2.5 MG/3 ML AMPUL NEB ONE (11:32)
[2017-10-18] MEDS ORDERED: GUAIFENESIN/D-METHORPHAN (200-20 MG) SYRUP 10 ML PO ONE (11:34)
[2017-10-18 12:08] LABS: ABSOLUTE EOSINOPHILS # (AUTO) 0.4 10^3/uL (0.0-0.6); ABSOLUTE LYMPHOCYTES (AUTO) 2.4 10^3/uL (0.5-4.7); ABSOLUTE MONOCYTES (AUTO) 0.9 10^3/uL (0.1-1.4); ABSOLUTE NEUT (AUTO) 4.9 10^3/uL (1.7-8.2); BASOPHILS % (AUTO) 0.5 % (0-2); EOSINOPHILS % (AUTO) 4.3 % (0-6); HEMOGLOBIN 11.6 g/dL (13.5-17.0); MEAN CORPUSCULAR HEMOGLOBIN 27.6 pg (27.0-33.4); MEAN CORPUSCULAR VOLUME 83 fl (80-97); MONOCYTES % (AUTO) 10.6 % (3-13); PLATELET COUNT 226 10^3/uL (150-450); RED BLOOD COUNT 4.19 10^6/uL (4.35-5.55); RED CELL DISTRIBUTION WIDTH 13.8 % (11.5-14.0); SEGMENTED NEUTROPHILS % (AUTO) 56.6 % (42-78); TOTAL CELLS COUNTED % (AUTO) 100 %; WHITE BLOOD COUNT 8.6 10^3/uL (4.0-10.5)
--- NOTE | 2017-10-18 12:08 | RADIOLOGY REPORT (SQ) ---
EXAM DESCRIPTION: CHEST SINGLE VIEW COMPLETED DATE/TIME: 10/18/2017 11:53 am REASON FOR STUDY: sob, cough last night COMPARISON: 08/12/2017. EXAM PARAMETERS: NUMBER OF VIEWS: One view. TECHNIQUE: Single frontal radiographic view of the chest acquired. RADIATION DOSE: NA LIMITATIONS: None. FINDINGS: LUNGS AND PLEURA: No opacities, masses or pneumothorax. No pleural effusion. MEDIASTINUM AND HILAR STRUCTURES: No masses. Contour normal. HEART AND VASCULAR STRUCTURES: Heart upper limits of normal in size. Normal vasculature. BONES: No acute findings. HARDWARE: None in the chest. OTHER: No other significant finding. IMPRESSION: NO ACUTE RADIOGRAPHIC FINDING IN THE CHEST. TECHNICAL DOCUMENTATION: JOB ID: [id number] [employer]- All Rights Reserved Reading location - IP/workstation name: [email or web address]
[2017-10-18 12:11] LABS: VENOUS BLOOD BASE EXCESS 2.3 mmol/L; VENOUS BLOOD HCO3 27.6 mmol/L (20-32); VENOUS BLOOD PH 7.41 (7.30-7.42)
[2017-10-18 12:32] LABS: ALANINE AMINOTRANSFERASE 17 U/L (21-72); ALBUMIN 3.3 g/dL (3.5-5.0); ALKALINE PHOSPHATASE 65 U/L (38-126); ANION GAP 9 (5-19); ASPARTATE AMINO TRANSFERASE 17 U/L (17-59); BILIRUBIN,DIRECT 0.3 mg/dL (0.0-0.4); BILIRUBIN,TOTAL 0.5 mg/dL (0.2-1.3); BLOOD UREA NITROGEN 12 mg/dL (7-20); CALCIUM 9.1 mg/dL (8.4-10.2); CARBON DIOXIDE 28 mmol/L (22-30); CHLORIDE 107 mmol/L (98-107); GLUCOSE 101 mg/dL (75-110); POTASSIUM 3.8 mmol/L (3.6-5.0); SODIUM 143.8 mmol/L (137-145); TOTAL PROTEIN 7.2 g/dL (6.3-8.2)
[2017-10-18] MEDS ORDERED: METHYLPREDNISOLONE INJ 125 MG/2 ML SDV IV ONE (13:16)
--- NOTE | 2017-10-18 13:16 | ER Document Report ---
ED Respiratory Problem - General Chief Complaint: Shortness Of Breath Stated Complaint: SHORTNESS OF BREATH Time Seen by Provider: 10/18/17 11:13 Mode of Arrival: Medic Information source: Patient Notes: Patient is a 67-year-old male with COPD who presents to the ER via EMS today for productive cough that started last night with shortness of breath and wheezing. Patient states that he does not have COPD so he does not have any inhalers at home. EMS reports that they have picked him up multiple times for COPD, wheezing and that he "always has this cough." Patient denies any fevers, chills. He has not taken anything for his symptoms. He does still smoke a pack per day of cigarettes. He denies any chest pain today. TRAVEL OUTSIDE OF THE [place] IN LAST 30 DAYS: No - Related Data Allergies/Adverse Reactions: No Known Allergies Allergy (Verified 09/06/17 16:11) Past Medical History - General Information source: Patient - Social History Smoking Status: Current Every Day Smoker Family History: CAD, COPD Patient has suicidal ideation: No Patient has homicidal ideation: No - Past Medical History Cardiac Medical History: Reports: Hx Atrial Fibrillation, Hx DVT, Hx Hypercholesterolemia, Hx Hypertension - ON MEDS Denies: Hx Coronary Artery Disease, Hx Heart Attack Pulmonary Medical History: Reports: Hx Asthma, Hx Bronchitis, Hx COPD - INHALERS PRN, Hx Pneumonia - MOST RECENTLY LAST MONTH Neurological Medical History: Reports: Hx Cerebrovascular Accident - 2X- 2015 AND 2017: L SIDE WEAKNESS & APHASIA. Denies: Hx Seizures Renal/ Medical History: Denies: Hx Peritoneal Dialysis Musculoskeltal Medical History: Reports Hx Arthritis Psychiatric Medical History: Reports: Hx Depression - Immunizations Hx Diphtheria, Pertussis, Tetanus Vaccination: No Hx Pneumococcal Vaccination: 06/16/17 Review of Systems - Review of Systems Constitutional: No symptoms reported EENT: No symptoms reported Cardiovascular: No symptoms reported Respiratory: See HPI Gastrointestinal: No symptoms reported Genitourinary: No symptoms reported Male Genitourinary: No symptoms reported Musculoskeletal: No symptoms reported Skin: No symptoms reported Hematologic/Lymphatic: No symptoms reported Neurological/Psychological: No symptoms reported Physical Exam - Vital signs Vitals: Pulse Ox 96 10/18/17 11:13 - Notes Notes: PHYSICAL EXAMINATION: GENERAL: Chronically ill-appearing, cachectic, in no acute distress. HEAD: Atraumatic, normocephalic. EYES: Pupils equal round and reactive to light, extraocular movements intact, sclera anicteric, conjunctiva are normal. ENT: ear canals without erythema or foreign body, TMs pearly valentin with good bony landmarks, nares patent, oropharynx clear without exudates. Moist mucous membranes. Airway patent NECK: Normal range of motion, supple without lymphadenopathy LUNGS: Productive cough, mild expiratory wheezes throughout, no rales or rhonchi. HEART: Regular rate and rhythm without murmurs ABDOMEN: Soft, no tenderness. No guarding, no rebound BACK: no vertebral tenderness, normal ROM GI/: no CVA tenderness EXTREMITIES: Normal range of motion, no pitting edema. No cyanosis. NEUROLOGICAL: Cranial nerves grossly intact. Normal sensory/motor exams. PSYCH: Normal mood, normal affect. SKIN: Warm, Dry, normal turgor, no rashes or lesions noted Course - Re-evaluation Re-evalutation: 10/18/17 18:55 Lab work is unremarkable today including a normal white blood cell count, chest x-ray reports no acute pathology, VBG all within normal limits. Patient will be given azithromycin, Robitussin and albuterol inhaler to go home with. Patient given Solu-Medrol injection here in the emergency department. Vitals are all stable, patient remained at 98% on room air and not tachycardic. Patient states he feels much better after breathing treatment. He is happy to go home. - Vital Signs Vital signs: Temp Pulse Resp BP Pulse Ox 19 126/79 H 95 10/18/17 14:01 10/18/17 14:00 10/18/17 14:01 - Laboratory Result Diagrams: 10/18/17 11:51 10/18/17 11:51 Laboratory results interpreted by me: 10/18/17 10/18/17 11:51 11:51 RBC 4.19 L Hgb 11.6 L Hct 35.0 L ALT 17 L Albumin 3.3 L Discharge - Discharge Clinical Impression: COPD exacerbation Condition: Stable Disposition: HOME, SELF-CARE Additional Instructions: Return immediately for any new or worsening symptoms. Follow up with primary care provider, call tomorrow to make followup appointment. Prescriptions: Albuterol Sulfate [Proair HFA Inhalation Aerosol 8.5 gm MDI] 1 puff IH Q4 PRN # 1 mdi PRN Reason: Azithromycin [Zithromax 250 mg Tablet] 250 mg PO ASDIR PRN #6 tablet PRN Reason: Guaifenesin/D-Methorphan Hb [Robitussin-Dm Syrup 10 Ml Udcup] 10 ml PO Q4 PRN # 120 ml PRN Reason: Referrals: ERICH MCCURDY MD [Primary Care Provider] - Follow up as needed
[2017-10-18 14:29] VITALS: BP 126/79
--- NOTE | 2017-10-18 22:10 | EKG REPORT ---
SEVERITY:- ABNORMAL ECG - SINUS RHYTHM PAIRED VENTRICULAR PREMATURE COMPLEXES RIGHT BUNDLE BRANCH BLOCK : Confirmed by: Natalie Grover MD 18-Oct-2017 22:08:32
== END 2017-10-18 14:29 | disposition home or self-care (01) ==
LOC: ER 10:58
DX: J44.1 Chronic obstructive pulmonary disease with (acute) exacerbation (principal); R05 Cough; R06.02 Shortness of breath; I10 Essential (primary) hypertension; F17.210 Nicotine dependence, cigarettes, uncomplicated; Z87.01 Personal history of pneumonia (recurrent)
CPT/HCPCS: 93005; 94640; 99285; 96374; 36415; 85025; 80053; 82803; 71045; 93010; J2930; A9270 ×2; J3490

== ENCOUNTER 2017-10-29 22:49 | Emergency (ER) | payer MEDICARE, MEDICAID ==
[2017-10-29] MEDS ORDERED: NORMAL SALINE 1000 ML 1,000 ML IV ONE (23:13)
[2017-10-29 23:47] LABS: APPEARANCE,URINE SLIGHTLY-CLOUDY; BILIRUBIN,URINE NEGATIVE (NEGATIVE); COLOR,URINE YELLOW; GLUCOSE, URINE NEGATIVE (NEGATIVE); KETONES,URINE TRACE mg/dL (NEGATIVE); LEUKOCYTE ESTERASE,URINE NEGATIVE (NEGATIVE); NITRITE,URINE NEGATIVE (NEGATIVE); PROTEIN,URINE >=500 mg/dL (NEGATIVE); URINE SPECIFIC GRAVITY 1.022; UROBILINOGEN,URINE NEGATIVE mg/dL (<2.0)
--- NOTE | 2017-10-29 23:49 | ER Document Report ---
ED General - General Chief Complaint: Altered Mental Status Stated Complaint: ALTERED MENTAL STATUS Time Seen by Provider: 10/29/17 22:58 Information source: Law Enforcement Cannot obtain history due to: Altered mental status Notes: Patient is a 67-year-old male who presents from EMS after he was found to be altered all day today. Looking through prior records, he has had a CVA with residual left-sided deficits. According to EMS, the patient lives in a home with 10 other people. On arrival to the ER, the patient's eyes are closed tightly, his mouth is closed tightly and he has food in his mouth. He does not respond to painful stimulation. No active seizure activity. TRAVEL OUTSIDE OF THE [place] IN LAST 30 DAYS: No - Related Data Allergies/Adverse Reactions: No Known Allergies Allergy (Verified 10/30/17 01:18) Past Medical History - General Information source: Emergency Med Personnel Cannot obtain history due to: Altered mental status - Social History Smoking Status: Unknown if Ever Smoked Family History: CAD, COPD - Past Medical History Cardiac Medical History: Reports: Hx Atrial Fibrillation, Hx DVT, Hx Hypercholesterolemia, Hx Hypertension - ON MEDS Denies: Hx Coronary Artery Disease, Hx Heart Attack Pulmonary Medical History: Reports: Hx Asthma, Hx Bronchitis, Hx COPD - INHALERS PRN, Hx Pneumonia - MOST RECENTLY LAST MONTH Neurological Medical History: Reports: Hx Cerebrovascular Accident - 2X- 2015 AND 2017: L SIDE WEAKNESS & APHASIA. Denies: Hx Seizures Renal/ Medical History: Denies: Hx Peritoneal Dialysis Musculoskeltal Medical History: Reports Hx Arthritis Psychiatric Medical History: Reports: Hx Depression - Immunizations Hx Diphtheria, Pertussis, Tetanus Vaccination: No Hx Pneumococcal Vaccination: 06/16/17 Review of Systems - Review of Systems -: Yes ROS unobtainable due to patient's medical condition Physical Exam - Vital signs Vitals: Pulse Resp BP Pulse Ox 105 H 20 173/100 H 99 10/30/17 00:00 10/30/17 00:00 10/30/17 00:00 10/30/17 00:00 - Notes Notes: PHYSICAL EXAMINATION: GENERAL: Cachectic appearing. No acute distress. HEAD: Atraumatic, normocephalic. EYES: Pupils equal round and reactive to light, extraocular movements intact, sclera anicteric, conjunctiva are normal. ENT: nares patent, oropharynx clear without exudates. Moist mucous membranes. NECK: Normal range of motion, supple without lymphadenopathy LUNGS: Breath sounds clear to auscultation bilaterally and equal. No wheezes rales or rhonchi. HEART: Regular rate and rhythm without murmurs ABDOMEN: Soft, nontender, normoactive bowel sounds. No guarding, no rebound. No masses appreciated. EXTREMITIES: Strong distal pulses. NEUROLOGICAL: Eyes closed, no spontaneous movement. No reaction to painful stimulation. SKIN: Dry skin. Course - Re-evaluation Re-evalutation: While patient was in the ER, he woke up and his mental status is back to baseline based on prior interactions in the ER. CT head, chest x-ray, urine and blood work are all unremarkable. Will discharge patient back to the senior living. - Vital Signs Vital signs: Temp Pulse Resp BP Pulse Ox 99.5 F 100 20 155/94 H 98 10/30/17 05:05 10/30/17 05:05 10/30/17 05:05 10/30/17 05:05 10/30/17 05:05 - Laboratory Result Diagrams: 10/30/17 01:58 10/30/17 01:58 Laboratory results interpreted by me: 10/29/17 10/30/17 10/30/17 23:30 01:58 01:58 WBC 10.9 H PT 15.8 H VBG pH VBG pCO2 Glucose AST ALT Urine Protein >=500 H Urine Ketones TRACE H Urine Blood SMALL H 10/30/17 10/30/17 01:58 01:58 WBC PT VBG pH 7.48 H VBG pCO2 31.6 L Glucose 117 H AST 13 L ALT 14 L Urine Protein Urine Ketones Urine Blood - Diagnostic Test Radiology reviewed: Image reviewed, Reports reviewed Radiology results interpreted by me: CXR: NAD CT Head: NAD Discharge - Discharge Clinical Impression: Mental status alteration Qualifiers: Altered mental status type: transient alteration of awareness Qualified Code(s) : R40.4 - Transient alteration of awareness Condition: Stable Disposition: HOME, SELF-CARE Additional Instructions: Your blood work, CAT scan, urine and chest x-ray did not show any dangerous abnormalities today. You were provided with IV fluids. Stay hydrated and follow-up with your primary care physician. Forms: Elevated Blood Pressure Referrals: ERICH MCCURDY MD [Primary Care Provider] - Follow up as needed
--- NOTE | 2017-10-30 00:12 | EKG REPORT ---
SEVERITY:- ABNORMAL ECG - SINUS TACHYCARDIA MULTIFORM VENTRICULAR PREMATURE COMPLEXES PROBABLE LEFT ATRIAL ABNORMALITY INCOMPLETE RIGHT BUNDLE BRANCH BLOCK LEFT VENTRICULAR HYPERTROPHY : Confirmed by: Anup Powers MD 30-Oct-2017 00:11:36
--- NOTE | 2017-10-30 00:47 | RADIOLOGY REPORT (SQ) ---
EXAM DESCRIPTION: XR CHEST 1 VIEW COMPLETED DATE/TME: 10/29/2017 22:55 CLINICAL HISTORY: fevers COMPARISON: 10/18/2017 FINDINGS: Single frontal view of the chest. Atherosclerotic calcification of the aortic arch. Heart is not enlarged. Low lung lungs. Leads overlie the chest. No lobar consolidation, pneumothorax, or pleural effusion. Discoid atelectasis in left lung base. Degenerative change of the spine and shoulders. Upper abdominal soft tissues are unremarkable. IMPRESSION: 1. No acute pneumonic process identified.
--- NOTE | 2017-10-30 01:06 | RADIOLOGY REPORT (SQ) ---
EXAM DESCRIPTION: CT HEAD WITHOUT IV CONTRAST COMPLETED DATE/TME: 10/29/2017 23:12 CLINICAL HISTORY: AMS COMPARISON: 11/18/2016 TECHNIQUE: Axial CT of the head obtained from the skull apex to the skull base without contrast. FINDINGS: No acute intracranial hemorrhage identified. No mass, mass effect, shift of the midline, abnormal extra-axial fluid collection or CT evidence of acute ischemic change identified. The ventricular system and sulcal spaces are mildly enlarged compatible with mild cerebral atrophy. Confluent areas of hypodensity throughout the supratentorial white matter are nonspecific and may be related to chronic small vessel ischemic change. This is increased from the comparison study. Interval development of encephalomalacia involving the watershed distribution of the right cerebral hemisphere compatible with remote infarction. The visualized paranasal sinuses and the mastoids are clear. No skull fracture identified. Visualized orbits and globes are unremarkable. Atherosclerotic calcification of the intracranial internal carotid arteries. DLP: mGy-cm IMPRESSION: 1. No acute intracranial abnormality by CT criteria. This exam was performed according to our departmental dose-optimization program, which includes automated exposure control, adjustment of the mA and/or kV according to patient size and/or use of iterative reconstruction technique.
[2017-10-30 02:14] LABS: VENOUS BLOOD BASE EXCESS 0.4 mmol/L; VENOUS BLOOD PCO2 31.6 mmHg (35-63); VENOUS BLOOD PH 7.48 (7.30-7.42)
[2017-10-30 02:16] LABS: HEMATOCRIT 41.5 % (37.9-51.0); HEMOGLOBIN 13.9 g/dL (13.5-17.0); MEAN CORPUSCULAR HEMOGLOBIN 27.7 pg (27.0-33.4); MEAN CORPUSCULAR HGB CONC 33.4 g/dL (32.0-36.0); MEAN CORPUSCULAR VOLUME 83 fl (80-97); PLATELET COUNT 254 10^3/uL (150-450); PROTHROMBIN TIME 15.8 SEC (11.4-15.4); RED CELL DISTRIBUTION WIDTH 13.8 % (11.5-14.0); WHITE BLOOD COUNT 10.9 10^3/uL (4.0-10.5)
[2017-10-30 02:28] LABS: ALANINE AMINOTRANSFERASE 14 U/L (21-72); ALBUMIN 3.7 g/dL (3.5-5.0); ALKALINE PHOSPHATASE 72 U/L (38-126); ANION GAP 12 (5-19); ASPARTATE AMINO TRANSFERASE 13 U/L (17-59); BILIRUBIN,DIRECT 0.3 mg/dL (0.0-0.4); BILIRUBIN,TOTAL 0.9 mg/dL (0.2-1.3); BLOOD UREA NITROGEN 11 mg/dL (7-20); CALCIUM 9.6 mg/dL (8.4-10.2); CARBON DIOXIDE 24 mmol/L (22-30); CHLORIDE 107 mmol/L (98-107); GLUCOSE 117 mg/dL (75-110); POTASSIUM 4.7 mmol/L (3.6-5.0); TOTAL PROTEIN 7.9 g/dL (6.3-8.2)
[2017-10-30 03:04] LABS: ABSOLUTE LYMPHOCYTES# (MANUAL) 1.7 10^3/uL (0.5-4.7); ABSOLUTE MONOCYTES # (MANUAL) 1.2 10^3/uL (0.1-1.4); ABSOLUTE NEUTROPHILS# (MANUAL) 7.8 10^3/uL (1.7-8.2); BASOPHILS % (MANUAL) 0 % (0-2); EOSINOPHILS % (MANUAL) 1 % (0-6); LYMPHOCYTES % (MANUAL) 16 % (13-45); MONOCYTES % (MANUAL) 11 % (3-13); SEGMENTED NEUTROPHILS % (MAN) 72 % (42-78); TOTAL CELLS COUNTED 100
[2017-10-30 03:05] LABS: RBC MORPHOLOGY COMMENT NORMO-CYTIC/CHROMIC
[2017-10-30 03:06] LABS: PLATELET COMMENT ADEQUATE
[2017-10-30 05:06] VITALS: BP 155/94
== END 2017-10-30 05:06 | disposition home or self-care (01) ==
LOC: ER 22:49
DX: R40.4 Transient alteration of awareness (principal); I10 Essential (primary) hypertension; J44.9 Chronic obstructive pulmonary disease, unspecified; I69.320 Aphasia following cerebral infarction; I69.354 Hemiplegia and hemiparesis following cerebral infarction affecting left non-dominant side
CPT/HCPCS: 93005; 99285; 96360; 36415; 87040; 87086; 82962; 85025; 85610; 80053; 81001; 82803; 83605; 71045; 70450; 93010; J7030

== ENCOUNTER 2017-11-02 12:19 | Inpatient (IN) | payer MEDICARE, MEDICAID ==
[2017-11-02] MEDS ORDERED: NORMAL SALINE 1000 ML 1,000 ML IV ONE ×2 (12:42→15:02)
[2017-11-02] MEDS ORDERED: KETOROLAC TROMETHAMINE INJ/PF 30 MG/1 ML SDV IV ONE (12:43)
[2017-11-02] MEDS ORDERED: FENTANYL CITRATE INJ/PF 100 MCG/2 ML AMPUL IV ONE (12:43)
--- NOTE | 2017-11-02 12:43 | ER Document Report ---
ED General - General Chief Complaint: Headache >24 hrs old Stated Complaint: ALTERED MENTAL STATUS Time Seen by Provider: 11/02/17 12:27 Notes: 67-year-old male to emergency department chief complaint of altered mental status and headache. Patient has had previous strokes. Nonverbal. Able to answer questions by squeezing hands. Apparently lives at home. Suffers from headaches after his strokes. When asked if he has a headache he does squeeze the hand firmly. Denies abdominal pain or chest pain. No family members are immediately present at the bedside to ask questions. TRAVEL OUTSIDE OF THE [place] IN LAST 30 DAYS: No - HPI Onset: Just prior to arrival - Related Data Allergies/Adverse Reactions: No Known Allergies Allergy (Verified 10/30/17 01:18) Past Medical History - General Information source: [facility] Records Cannot obtain history due to: Mentally challenged, Other - Stroke with nonverbal - Social History Smoking Status: Current Every Day Smoker Cigarette use (# per day): Yes Frequency of alcohol use: None Drug Abuse: None Lives with: Spouse/Significant other Family History: CAD, COPD - Past Medical History Cardiac Medical History: Reports: Hx Atrial Fibrillation, Hx DVT, Hx Hypercholesterolemia, Hx Hypertension - ON MEDS Denies: Hx Coronary Artery Disease, Hx Heart Attack Pulmonary Medical History: Reports: Hx Asthma, Hx Bronchitis, Hx COPD - INHALERS PRN, Hx Pneumonia - MOST RECENTLY LAST MONTH Neurological Medical History: Reports: Hx Cerebrovascular Accident - 2X- 2016 AND 2017: L SIDE WEAKNESS & APHASIA. Denies: Hx Seizures Renal/ Medical History: Denies: Hx Peritoneal Dialysis Musculoskeltal Medical History: Reports Hx Arthritis Psychiatric Medical History: Reports: Hx Depression - Immunizations Hx Diphtheria, Pertussis, Tetanus Vaccination: No Hx Pneumococcal Vaccination: 06/16/17 Review of Systems - Review of Systems -: Yes ROS unobtainable due to patient's medical condition Physical Exam - Vital signs Vitals: Pulse Resp BP Pulse Ox 120 H 20 154/119 H 97 11/02/17 12:31 11/02/17 12:31 11/02/17 12:31 11/02/17 12:31 Interpretation: Hypertensive, Tachycardic - Notes Notes: Thin appearing -[place] male - Respiratory Respiratory status: No respiratory distress Chest status: Nontender Breath sounds: Normal Chest palpation: Normal - Cardiovascular Rhythm: Tachycardia Heart sounds: Normal auscultation Murmur: No - Abdominal Inspection: Normal Distension: No distension Bowel sounds: Normal Tenderness: Nontender Organomegaly: No organomegaly - Back Back: Normal, Nontender. No: Deformity/step-off, CVA tenderness - Extremities General upper extremity: Normal inspection, Nontender, Normal color, Normal ROM , Normal temperature General lower extremity: Normal inspection, Nontender, Normal color, Normal ROM , Normal temperature. No: Soni's sign - Neurological Neuro grossly intact: Yes Speech: Expressive aphasia Sensory: Normal Notes: Patient's cognition appears to be intact or at least at his baseline. Does answer a few questions by squeezing my hand. Right side with strength. Left side flaccid. - Skin Skin Temperature: Warm Skin Moisture: Dry Skin Color: Normal Course - Re-evaluation Re-evalutation: 11/02/17 12:59 Uncertain exactly what is going on however does seem that patient has a headache. We will treat him at this time. We will get some basic labs and reassess. 11/02/17 15:42 Uncertain etiology of why patient was altered. No active seizure-like activity while in the emergency department. Patient's creatinine kinase extremely elevated indicating rhabdomyolysis. Blood count is elevated at 24,000. No active fever at this time. 2 L of fluid given. Blood cultures, lactic acid ordered. Empirically treating at this time with antibiotics. Possibility for meningitis exists. Will proceed with LP at this time. 11/02/17 15:51 Patient signed over to Dr. Morales at this time for completion of the spinal tap. Still have not been able to get in contact with hospitalist but I did speak to the patient's primary care doctor to let him know about the need for admission but he does not admit his own patients. Will pending the blood cultures, lactic acid and ABG at this time. - Vital Signs Vital signs: Temp Pulse Resp BP Pulse Ox 120 H 20 154/119 H 97 11/02/17 12:31 11/02/17 12:31 11/02/17 12:31 11/02/17 12:31 - Laboratory Result Diagrams: 11/02/17 13:40 11/02/17 13:40 Laboratory results interpreted by me: 11/02/17 11/02/17 11/02/17 13:35 13:40 13:40 WBC 24.8 H Hgb 13.1 L RDW 14.2 H Seg Neuts % (Manual) 92 H Lymphocytes % (Manual) 4 L Abs Neuts (Manual) 22.8 H Sodium Chloride BUN Creatinine Est GFR ( Amer) Est GFR (Non-Af Amer) Glucose Direct Bilirubin AST Creatine Kinase 3610 H Total Protein Urine Protein 100 H Urine Blood MODERATE H Urine Urobilinogen 4.0 H 11/02/17 13:40 WBC Hgb RDW Seg Neuts % (Manual) Lymphocytes % (Manual) Abs Neuts (Manual) Sodium 149.6 H Chloride 113 H BUN 47 H Creatinine 1.78 H Est GFR ( Amer) 47 L Est GFR (Non-Af Amer) 38 L Glucose 139 H Direct Bilirubin 0.6 H AST 97 H Creatine Kinase Total Protein 9.0 H Urine Protein Urine Blood Urine Urobilinogen Critical Care Note - Critical Care Note Total time excluding time spent on procedures (mins): 45 Discharge - Discharge Clinical Impression: Acute kidney injury Rhabdomyolysis Qualifiers: Rhabdomyolysis type: non-traumatic Qualified Code(s): M62.82 - Rhabdomyolysis Leukocytosis Qualifiers: Leukocytosis type: unspecified Qualified Code(s): D72.829 - Elevated white blood cell count, unspecified Altered mental status Qualifiers: Altered mental status type: unspecified Qualified Code(s): R41.82 - Altered mental status, unspecified Condition: Poor Disposition: ADMITTED INPATIENT Admitting Provider: Hospitalist [facility] Unit Admitted: [facility]U Referrals: ERICH MCCURDY MD [Primary Care Provider] - Follow up as needed
--- NOTE | 2017-11-02 13:23 | RADIOLOGY REPORT (SQ) ---
EXAM DESCRIPTION: CT HEAD WITHOUT COMPLETED DATE/TIME: 11/02/2017 1:06 pm REASON FOR STUDY: altered , headache COMPARISON: 10/29/2017 TECHNIQUE: Axial images acquired through the brain without intravenous contrast. Images reviewed wi th bone, brain and subdural windows. Additional sagittal and coronal reconstructions were generated. Images stored on PACS. All CT scanners at this facility use dose modulation, iterative reconstruction, and/or weight based d osing when appropriate to reduce radiation dose to as low as reasonably achievable (ALARA). [facility]: Dose Right [facility]: CareDose [facility]: Dose Right [facility]: Teradose 4D [facility]: Smart Movetis RADIATION DOSE: CT Rad equipment meets quality standard of care and radiation dose reduction techniq ues were employed. CTDIvol: 23.1 mGy. DLP: 464 mGy-cm.mGy. LIMITATIONS: None. FINDINGS: VENTRICLES: Prominent. CEREBRUM: No masses. No hemorrhage. No midline shift. Areas of low density in the white matter mos t likely due to chronic micro-vascular ischemic change. Old right MCA infarct is again identified an d appears stable. No evidence for acute infarction. CEREBELLUM: No masses. No hemorrhage. No alteration of density. No evidence for acute infarction. EXTRAAXIAL SPACES: Age-related involutional change. No fluid collections. No masses. ORBITS AND GLOBE: No intra- or extraconal masses. Normal contour of globe without masses. CALVARIUM: No fracture. PARANASAL SINUSES: No fluid or mucosal thickening. SOFT TISSUES: No mass or hematoma. OTHER: No other significant finding. IMPRESSION: CHRONIC CHANGES OF ATROPHY AND MICROVASCULAR ISCHEMIA. Old right MCA infarct appears st able. NO ACUTE PROCESS. EVIDENCE OF ACUTE STROKE: NO. TECHNICAL DOCUMENTATION: JOB ID: [id number] Quality ID # [id number]: Final reports with documentation of one or more dose reduction techniques (e.g., Au tomated exposure control, adjustment of the mA and/or kV according to patient size, use of iterative reconstruction technique) 2010 [employer]- All Rights Reserved Reading location - IP/workstation name: [email or web address]
[2017-11-02 14:08] LABS: AMORPHOUS SEDIMENT,URINE TRACE /HPF; APPEARANCE,URINE CLOUDY; BILIRUBIN,URINE NEGATIVE (NEGATIVE); COLOR,URINE AMBER; GLUCOSE, URINE NEGATIVE (NEGATIVE); KETONES,URINE NEGATIVE (NEGATIVE); LEUKOCYTE ESTERASE,URINE NEGATIVE (NEGATIVE); NITRITE,URINE NEGATIVE (NEGATIVE); PROTEIN,URINE 100 mg/dL (NEGATIVE); URINE SPECIFIC GRAVITY 1.026
--- NOTE | 2017-11-02 14:59 | RADIOLOGY REPORT (SQ) ---
EXAM DESCRIPTION: CHEST SINGLE VIEW COMPLETED DATE/TIME: 11/02/2017 2:39 pm REASON FOR STUDY: sob COMPARISON: 10/29/2017 EXAM PARAMETERS: NUMBER OF VIEWS: One view. TECHNIQUE: Single frontal radiographic view of the chest acquired. RADIATION DOSE: NA LIMITATIONS: None. FINDINGS: LUNGS AND PLEURA: There is some minimal increased density in the left retrocardiac area wh ich could represent atelectatic changes or minimal basilar infiltrate. Remaining lung cooney are aundrea ar. MEDIASTINUM AND HILAR STRUCTURES: No masses. Contour normal. HEART AND VASCULAR STRUCTURES: The configuration of the heart mediastinal structures is unchanged BONES: No acute findings. HARDWARE: None in the chest. OTHER: No other significant finding. IMPRESSION: Minimal left basilar densities as noted above which could represent atelectatic changes or minimal basilar infiltrate. Remaining lung cooney are clear. Other findings as noted above TECHNICAL DOCUMENTATION: JOB ID: [id number] [employer]- All Rights Reserved Reading location - IP/workstation name: [email or web address]
[2017-11-02 15:04] LABS: HEMATOCRIT 39.7 % (37.9-51.0); HEMOGLOBIN 13.1 g/dL (13.5-17.0); MEAN CORPUSCULAR HEMOGLOBIN 27.9 pg (27.0-33.4); MEAN CORPUSCULAR HGB CONC 32.9 g/dL (32.0-36.0); MEAN CORPUSCULAR VOLUME 85 fl (80-97); PLATELET COUNT 234 10^3/uL (150-450); RED BLOOD COUNT 4.68 10^6/uL (4.35-5.55); RED CELL DISTRIBUTION WIDTH 14.2 % (11.5-14.0); WHITE BLOOD COUNT 24.8 10^3/uL (4.0-10.5)
[2017-11-02 15:06] LABS: ALANINE AMINOTRANSFERASE 26 U/L (21-72); ALKALINE PHOSPHATASE 87 U/L (38-126); ANION GAP 14 (5-19); ASPARTATE AMINO TRANSFERASE 97 U/L (17-59); BILIRUBIN,DIRECT 0.6 mg/dL (0.0-0.4); BILIRUBIN,TOTAL 1.2 mg/dL (0.2-1.3); BLOOD UREA NITROGEN 47 mg/dL (7-20); CALCIUM 9.7 mg/dL (8.4-10.2); CARBON DIOXIDE 23 mmol/L (22-30); CHLORIDE 113 mmol/L (98-107); GLUCOSE 139 mg/dL (75-110); POTASSIUM 4.4 mmol/L (3.6-5.0); SODIUM 149.6 mmol/L (137-145)
[2017-11-02 15:25] LABS: ABSOLUTE NEUTROPHILS# (MANUAL) 22.8 10^3/uL (1.7-8.2); BASOPHILS % (MANUAL) 0 % (0-2); EOSINOPHILS % (MANUAL) 0 % (0-6); LYMPHOCYTES % (MANUAL) 4 % (13-45); MONOCYTES % (MANUAL) 4 % (3-13); SEGMENTED NEUTROPHILS % (MAN) 92 % (42-78); TOTAL CELLS COUNTED 100
[2017-11-02 15:26] LABS: ANISOCYTOSIS SLIGHT; PLATELET COMMENT ADEQUATE; PLATELET LARGE PRESENT
[2017-11-02] MEDS ORDERED: CEFTRIAXONE 2 GM/D5W RTU 2 GM/50 ML RTUPB IV ONE (15:42)
[2017-11-02] MEDS ORDERED: LIDOCAINE 1% INJ-PF (10 MG/ML) 30 ML SDV INJ ONE (15:52)
[2017-11-02] MEDS ORDERED: POTASSI CL 20 MEQ/D5-1/2NS 1L 1,000 ML IV PRN (16:26)
[2017-11-02] MEDS ORDERED: ACETAMINOPHEN 650 MG SUPP.RECT PR PRN (16:26)
[2017-11-02] MEDS ORDERED: VANCOMYCIN HCL 0 MG in DEXTROSE 5%-WATER 250 ML IV NR ×2 (16:30→20:15)
[2017-11-02 16:41] LABS: URINE AMPHETAMINES SCREEN NEGATIVE; URINE BARBITURATES SCREEN NEGATIVE; URINE BENZODIAZEPINES SCREEN NEGATIVE; URINE COCAINE SCREEN NEGATIVE; URINE MARIJUANA (THC) SCREEN NEGATIVE; URINE METHADONE SCREEN NEGATIVE; URINE PHENCYCLIDINE SCREEN NEGATIVE
--- NOTE | 2017-11-02 16:59 | PDOC H&P ---
History of Present Illness Admission Date/PCP: 11/02/17 16:23 ERICH MCCURDY MD History of Present Illness: TREY DAWSON is a 67 year old male who presents with altered mental status. He has a history of a stroke with residual left-sided deficits and still smokes, and lives at home with a lady who apparently is his primary caregiver and medical power of estate planning attorney. She is not here at the moment. I am told by a third democrat report that she had him brought to the hospital because he has not been eating. She then left to go get something to eat herself apparently. Reviewing the chart shows the patient was here in the first of the month was diagnosed with an upper respiratory infection and then went home. He then came back on the , 4 days ago at this point, and had a similar sort of presentation but while he was in the ER he spontaneously came back to his baseline and was sent home. Today he comes in and is found to be a phasic, but was able to squeeze his hand one time for yes or twice for no. He had a leukocytosis, hypertension, elevated CPK, and elevated BUN/creatinine. He has been started on some IV fluids. I cannot find for sure where he has had a fever but by the time I came down to see him he was very sweaty. When I saw him in the room he was completely unresponsive and his pupils were pinpoint, but his vital signs were stable and he was protecting his airway and oxygenating well. An LP has been ordered and that is currently pending. Because of the change in his mental status from off baseline to now completely unresponsive, I decided to admit him to the ICU. A CT scan of his head without contrast showed no new process but it did show the old right MCA stroke we knew he already had. Past Medical History Cardiac Medical History: Reports: Atrial Fibrillation, DVT, Hyperlipidema, Hypertension - ON MEDS Denies: Coronary Artery Disease, Myocardial Infarction Pulmonary Medical History: Reports: Asthma, Bronchitis, Chronic Obstructive Pulmonary Disease (COPD) - INHALERS PRN, Pneumonia - MOST RECENTLY LAST MONTH Neurological Medical History: Denies: Seizures Musculoskeltal Medical History: Reports: Arthritis Psychiatric Medical History: Reports: Depression Hematology: Denies: Anemia Social History Lives with: Spouse/Significant other Smoking Status: Current Every Day Smoker Frequency of Alcohol Use: Social Hx Recreational Drug Use: No Drugs: None Hx Prescription Drug Abuse: No Family History Family History: None - Unable to obtain, CAD, COPD Parental Family History Reviewed: No - Unable to obtain Children Family History Reviewed: No - Unable to obtain Sibling(s) Family History Reviewed.: No - Unable to obtain Medication/Allergy Allergies/Adverse Reactions: No Known Allergies Allergy (Verified 10/30/17 01:18) Review of Systems ROS unobtainable: Due to mental status Physical Exam Vital Signs: Temp Pulse Resp BP Pulse Ox 120 H 20 154/119 H 97 11/02/17 12:31 11/02/17 12:31 11/02/17 12:31 11/02/17 12:31 General appearance: PRESENT: thin, other - Completely unresponsive to noxious stimuli, stable vital signs, good oxygenation and protecting his airway Head exam: PRESENT: atraumatic, normocephalic Eye exam: PRESENT: other - Pupils were pinpoint, equal, and unresponsive to light. ABSENT: conjunctival injection, scleral icterus Ear exam: PRESENT: normal external ear exam Mouth exam: PRESENT: dry mucosa, neck supple Teeth exam: PRESENT: dental caries, poor dentation Throat exam: ABSENT: post pharyngeal erythema, tonsillar erythema, tonsillar exudate Neck exam: PRESENT: other - His neck was not stiff and was able to be moved but he was not able to move himself. ABSENT: carotid bruit, JVD, lymphadenopathy, tenderness, thyromegaly Respiratory exam: PRESENT: clear to auscultation gera, symmetrical, unlabored. ABSENT: accessory muscle use, chest wall tenderness, crackles, rales, rhonchi, stridor, tachypnea, wheezes Cardiovascular exam: PRESENT: RRR - Frequent PVCs. ABSENT: diastolic murmur, gallop, rubs, systolic murmur Pulses: PRESENT: normal carotid pulses, normal radial pulses, normal femoral pulses Vascular exam: PRESENT: normal capillary refill GI/Abdominal exam: PRESENT: normal bowel sounds, soft. ABSENT: ascites, distended, firm, guarding, rebound, tenderness Rectal exam: PRESENT: deferred Extremities exam: ABSENT: joint swelling, pedal edema Musculoskeletal exam: PRESENT: normal inspection. ABSENT: deformity Neurological exam: PRESENT: altered - Unresponsive, GCS 3 Skin exam: PRESENT: warm - A bit diaphoretic Results Laboratory Results: Reviewed Impressions: Head CT 11/02/17 12:42 IMPRESSION: CHRONIC CHANGES OF ATROPHY AND MICROVASCULAR ISCHEMIA. Old right MCA infarct appears stable. NO ACUTE PROCESS. EVIDENCE OF ACUTE STROKE: NO. Chest X-Ray 11/02/17 14:29 IMPRESSION: Minimal left basilar densities as noted above which could represent atelectatic changes or minimal basilar infiltrate. Remaining lung cooney are clear. Other findings as noted above Assessment & Plan - Diagnosis (1) Unresponsive Is this a current diagnosis for this admission?: Yes Plan: He is being admitted to the ICU. His mental status has apparently declined from the time he first presented to the time I was able to see him in the ER. LP is pending. Putting him empirically on vancomycin and Rocephin. Blood cultures and CSF studies are pending. Once he seems stable enough we will probably pursue further brain imaging. We also may need to get an EEG. Were also looking for other metabolic causes for his current condition. (2) Acute kidney injury Is this a current diagnosis for this admission?: Yes Plan: IV fluids, monitor urine output, monitor electrolytes, repeat labs in the morning to see if his BUN and creatinine have responded. (3) Rhabdomyolysis Qualifiers: Rhabdomyolysis type: non-traumatic Qualified Code(s): M62.82 - Rhabdomyolysis Is this a current diagnosis for this admission?: Yes Plan: Fairly mild, we given him some IV fluids. - Time Time Spent: 50 to 70 Minutes Critical Time spent with patient: 25-34 minutes Medications reviewed and adjusted accordingly: Yes Anticipated discharge: Other - Unknown at this time - Inpatient Certification Medical Necessity: Need Close Monitoring Due to Risk of Patient Decompensation, Need For IV Fluids, Need For Continuous Telemetry Monitoring, Need for Neurological Checks, Need for IV Antibiotics
[2017-11-02 18:09] LABS: GLUCOSE,CSF 76 mg/dL (40-70); PROTEIN,CSF 52 mg/dL (12-60)
[2017-11-02 18:19] LABS: APPEARANCE ALL TUBES CLEAR; COLOR ALL TUBES COLORLESS; CSF TUBE NUMBER 1; VOLUME TUBE 1 0.5 CC; VOLUME TUBE 2 0.5 CC; VOLUME TUBE 3 0.5 CC; VOLUME TUBE 4 0.5 CC
[2017-11-02 18:20] LABS: RED BLOOD CELL,CSF 210 /uL (0-10)
[2017-11-02 18:22] LABS: WHITE BLOOD CELL,CSF 1 /uL (0-5)
[2017-11-02 18:23] LABS: COLOR ALL TUBES COLORLESS; CSF TUBE NUMBER 4
[2017-11-02 18:24] LABS: APPEARANCE ALL TUBES CLEAR; RED BLOOD CELL,CSF 3 /uL (0-10); VOLUME TUBE 1 0.5 CC; VOLUME TUBE 2 0.5 CC; VOLUME TUBE 3 0.5 CC; VOLUME TUBE 4 0.5 CC
[2017-11-02 18:25] LABS: WHITE BLOOD CELL,CSF 1 /uL (0-5)
[2017-11-02] MEDS ORDERED: LACTULOSE SYRUP 20 GM/30 ML UDCUP PO ONE (19:00)
[2017-11-02] MEDS ORDERED: NICARDIPINE HCL RTU, ISO-OS 20 MG/200 ML RTUINJ IV ONE (19:02)
[2017-11-02] MEDS: DILTIAZEM HCL/D5W 125 MG/125 ML RTUINJ IV PRN (19:22)
[2017-11-02] MEDS ORDERED: DILTIAZEM HCL INJ 25 MG/5 ML VIAL IV ONE (19:30)
[2017-11-02] MEDS: VANCOMYCIN HCL 500 MG in DEXTROSE 5%-WATER 100 ML IV SCH (19:44)
[2017-11-02] MEDS ORDERED: DEXTROSE 5%-WATER 500 ML with AMIODARONE HCL 900 MG IV PRN ×2 (20:07)
[2017-11-02 20:13] LABS: ARTERIAL BLOOD BASE EXCESS -1.5 mmol/L; ARTERIAL BLOOD H2CO3 1.15 mmol/L (1.05-1.35); ARTERIAL BLOOD PCO2 38.1 mmHg (35-45); ARTERIAL BLOOD PO2 80.9 mmHg (80-100); ARTERIAL BLOOD TOTAL CO2 24.1 mmol/L (23-27)
[2017-11-02 20:14] LABS: ARTERIAL BLOOD FIO2 100 NRB
[2017-11-02] MEDS ORDERED: AMIODARONE HCL 150 MG in DEXTROSE 5%-WATER 100 ML IV ONE (20:30)
[2017-11-02 21:19] LABS: CREATINE KINASE MB 3.75 ng/mL (<4.55); TROPONIN I 0.016 ng/mL
[2017-11-02] MEDS: THIAMINE HCL 100 MG, FOLIC ACID 1 MG in NORMAL SALINE 250 ML IV SCH (22:17)
[2017-11-02] MEDS: LORAZEPAM INJ 2 MG/1 ML VIAL IV PRN (22:17)
--- NOTE | 2017-11-02 22:18 | EKG REPORT ---
SEVERITY:- ABNORMAL ECG - SINUS TACHYCARDIA MULTIPLE ATRIAL PREMATURE COMPLEXES INCOMPLETE RIGHT BUNDLE BRANCH BLOCK LVH WITH SECONDARY REPOLARIZATION ABNORMALITY : Confirmed by: Ifeanyi Porras 02-Nov-2017 22:18:05
--- NOTE | 2017-11-02 22:18 | EKG REPORT ---
SEVERITY:- ABNORMAL ECG - CONSIDER A FLUTTER WITH 2:1 CONDUCTION VS ECTOPIC ATRIAL TACHYCARDIA, REC REPEAT EKG AFTER ADENOSINE RBBB AND LAFB LVH WITH SECONDARY REPOLARIZATION ABNORMALITY : Confirmed by: Ifeanyi Porras 02-Nov-2017 22:17:42
[2017-11-03 04:13] LABS: INTERNATIONAL RATION (INR) 1.96; PROTHROMBIN TIME 23.2 SEC (11.4-15.4)
[2017-11-03] MEDS: LACTULOSE SYRUP 20 GM/30 ML UDCUP PO SCH ×3 (04:42→17:40)
[2017-11-03 05:44] LABS: HEMATOCRIT 40.9 % (37.9-51.0); HEMOGLOBIN 13.1 g/dL (13.5-17.0); MEAN CORPUSCULAR HEMOGLOBIN 27.7 pg (27.0-33.4); MEAN CORPUSCULAR VOLUME 87 fl (80-97); PLATELET COUNT 177 10^3/uL (150-450); RED BLOOD COUNT 4.72 10^6/uL (4.35-5.55); RED CELL DISTRIBUTION WIDTH 14.1 % (11.5-14.0); WHITE BLOOD COUNT 20.7 10^3/uL (4.0-10.5)
[2017-11-03 06:00] LABS: ALANINE AMINOTRANSFERASE 19 U/L (21-72); ALBUMIN 2.5 g/dL (3.5-5.0); ALKALINE PHOSPHATASE 55 U/L (38-126); ANION GAP 11 (5-19); ASPARTATE AMINO TRANSFERASE 63 U/L (17-59); BILIRUBIN,DIRECT 0.5 mg/dL (0.0-0.4); BILIRUBIN,TOTAL 0.7 mg/dL (0.2-1.3); BLOOD UREA NITROGEN 36 mg/dL (7-20); CALCIUM 8.3 mg/dL (8.4-10.2); CARBON DIOXIDE 22 mmol/L (22-30); CHLORIDE 115 mmol/L (98-107); CHOLESTEROL 84.72 mg/dL (0-200); GLUCOSE 399 mg/dL (75-110); PHOSPHORUS 3.1 mg/dL (2.5-4.5); SODIUM 148.3 mmol/L (137-145); TRIGLYCERIDES 70 mg/dL (<150)
[2017-11-03 06:05] LABS: CREATINE KINASE MB 2.77 ng/mL (<4.55); TROPONIN I < 0.012 ng/mL
[2017-11-03 06:13] LABS: CREATINE KINASE 2496 U/L (55-170)
[2017-11-03 06:15] LABS: DIRECT LDL 53 mg/dL (<100)
[2017-11-03 06:16] LABS: POTASSIUM 5.6 mmol/L (3.6-5.0)
[2017-11-03 06:29] LABS: ABSOLUTE LYMPHOCYTES# (MANUAL) 3.1 10^3/uL (0.5-4.7); ABSOLUTE MONOCYTES # (MANUAL) 1.2 10^3/uL (0.1-1.4); ABSOLUTE NEUTROPHILS# (MANUAL) 16.1 10^3/uL (1.7-8.2); BASOPHILS % (MANUAL) 0 % (0-2); EOSINOPHILS % (MANUAL) 1 % (0-6); LYMPHOCYTES % (MANUAL) 15 % (13-45); MONOCYTES % (MANUAL) 6 % (3-13); SEGMENTED NEUTROPHILS % (MAN) 78 % (42-78); TOTAL CELLS COUNTED 100
[2017-11-03 06:32] LABS: RBC MORPHOLOGY COMMENT NORMO-CYTIC/CHROMIC
[2017-11-03 06:33] LABS: PLATELET COMMENT ADEQUATE
[2017-11-03] MEDS ORDERED: DEXTROSE 50%-WATER 25 GM/50 ML DISP.SYRIN IV PRN ×2 (09:08)
[2017-11-03] MEDS ORDERED: GLUCAGON,HUMAN RECOMB 1 MG INJ IM PRN (09:08)
[2017-11-03] MEDS ORDERED: INSULIN REG, HUMAN 100 UNIT/ML 3 ML VIAL (PYX) SUBCUT PRN (09:08)
[2017-11-03] MEDS ORDERED: DEXTROSE 40% GEL 15 GM TUBE PO PRN ×2 (09:08)
[2017-11-03 09:28] LABS: CREATINE KINASE MB 2.64 ng/mL (<4.55)
[2017-11-03 09:32] LABS: TROPONIN I < 0.012 ng/mL
[2017-11-03] MEDS ORDERED: ENOXAPARIN SODIUM INJ 30 MG/0.3 ML DISP.SYRIN SUBCUT SCH (10:00)
[2017-11-03] MEDS: PIPERACILLIN SODIUM/TAZOBACTAM 3.375 GM in NORMAL SALINE 100 ML IV SCH ×2 (11:27→17:47)
[2017-11-03] MEDS: DILTIAZEM HCL/D5W 125 MG/125 ML RTUINJ IV PRN ×2 (11:27→18:51)
[2017-11-03] MEDS: ENOXAPARIN SODIUM INJ 60 MG/0.6 ML DISP.SYRIN SUBCUT SCH ×2 (11:27→21:17)
--- NOTE | 2017-11-03 13:08 | PDOC CONSULTATION ---
Consultation Consult Date: 11/03/17 Attending physician:: JOHANNY PAEZ Consult reason:: Cardiac dysrhythmia History of Present Illness Admission Date/PCP: 11/02/17 16:23 ERICH MCCURDY MD Patient complains of: Currently very lethargic and unable to respond History of Present Illness: TREY DAWSON is a 67 year old male who presents with altered mental status. He has a history of a stroke with residual left-sided deficits and still smokes, and lives at home with a lady who apparently is his primary caregiver and medical power of assistant county attorney. She is not here at the moment. I am told by a third constitution party report that she had him brought to the hospital because he has not been eating. She then left to go get something to eat herself apparently. Reviewing the chart shows the patient was here in the first of the month was diagnosed with an upper respiratory infection and then went home. He then came back on the , 4 days ago at this point, and had a similar sort of presentation but while he was in the ER he spontaneously came back to his baseline and was sent home. Today he comes in and is found to be a phasic, but was able to squeeze his hand one time for yes or twice for no. He had a leukocytosis, hypertension, elevated CPK, and elevated BUN/creatinine. He has been started on some IV fluids. I cannot find for sure where he has had a fever but by the time I came down to see him he was very sweaty. When I saw him in the room he was completely unresponsive and his pupils were pinpoint, but his vital signs were stable and he was protecting his airway and oxygenating well. An LP has been ordered and that is currently pending. Because of the change in his mental status from off baseline to now completely unresponsive, I decided to admit him to the ICU. A CT scan of his head without contrast showed no new process but it did show the old right MCA stroke we knew he already had. Patient was noted to be in a tachycardic supraventricular cardiac dysrhythmia. I was called last night by the hospitalist and advised patient to be started on amiodarone drip. This is mainly for heart rate control as patient had somewhat low blood pressure. This morning patient's heart rate is controlled but clearly underlying flutter waves are seen. Patient still remains significantly lethargic and unable to be aroused. Past Medical History Cardiac Medical History: Reports: Atrial Fibrillation, DVT, Hyperlipidema, Hypertension - ON MEDS Denies: Coronary Artery Disease, Myocardial Infarction Pulmonary Medical History: Reports: Asthma, Bronchitis, Chronic Obstructive Pulmonary Disease (COPD) - INHALERS PRN, Pneumonia - MOST RECENTLY LAST MONTH Neurological Medical History: Denies: Seizures Musculoskeltal Medical History: Reports: Arthritis Psychiatric Medical History: Reports: Depression Hematology: Denies: Anemia Past Surgical History Past Surgical History: Reports: Other - Cannot be obtained Social History Information Source: [facility] Records Lives with: Spouse/Significant other Smoking Status: Current Every Day Smoker Frequency of Alcohol Use: Social Hx Recreational Drug Use: No Drugs: None Hx Prescription Drug Abuse: No - Advance Directive Resuscitation Status: Full Code Surrogate healthcare decision maker:: Mary Ervin, a personal friend Family History Family History: None - Unable to obtain, CAD, COPD Parental Family History Reviewed: No - Patient unresponsive Children Family History Reviewed: No Sibling(s) Family History Reviewed.: No Medication/Allergy Home Medications: Acetaminophen [Tylenol 325 mg Tablet] 650 mg PO Q6HP PRN 11/02/17 Albuterol Sulfate [Ventolin Hfa] 1 puff IH Q4HP PRN 11/02/17 Apixaban [Eliquis 5 mg Tablet] 5 mg PO Q12 11/02/17 Fluticasone/Salmeterol [Advair 250-50 Diskus 14 Dose/Diskus] 1 puff IH Q12 11/02 Guaifenesin/Dextromethorphan [Tussin Dm Clear Liquid] 10 ml PO Q4H 11/02/17 Ipratropium/Albuterol Sulfate [Combivent Respimat 4 gm Mdi] 1 puff IH QIDP PRN 11/02/17 Lisinopril [Zestril] 10 mg PO DAILY 11/02/17 Metoprolol Succinate [Toprol Xl 25 mg Tab.sr] 25 mg PO Q12 11/02/17 Mirtazapine 7.5 mg PO QHS 11/02/17 Tamsulosin HCl [Flomax 0.4 mg Cap.sr] 0.4 mg PO DAILY 11/02/17 Allergies/Adverse Reactions: No Known Allergies Allergy (Verified 10/30/17 01:18) Review of Systems ROS unobtainable: Due to mental status Physical Exam Vital Signs: Temp Pulse Resp BP Pulse Ox 98.1 F 106 H 19 107/75 98 11/03/17 12:00 11/03/17 12:00 11/03/17 12:00 11/03/17 12:00 11/03/17 12:00 Intake & Output 11/02/17 11/03/17 11/04/17 06:59 06:59 06:59 Intake Total 1611 Output Total 410 270 Balance 1201 -270 Weight 53.6 kg Exam: GENERAL: well-nourished and in no acute distress. Patient difficult to arouse therefore not oriented to place time or person. HEAD: Atraumatic, normocephalic. EYES: Pupils equal round and reactive to light, extraocular movements intact, sclera anicteric, conjunctiva are normal. ENT: TMs normal, nares patent, oropharynx clear without exudates. Moist mucous membranes. No oral ulcerations or bleeding gums noted NECK: supple without lymphadenopathy or JVD. Trachea is central. No cervical or axillary lymphadenopathy noted. Carotids are 2+ LUNGS: Breath sounds bibasilar fine crackles at bases. No significant dullness noted. CHEST: Palpation of chest wall shows no significant chest wall tenderness. 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 ABDOMEN: Soft, no significant tenderness appreciated, normoactive bowel sounds. No guarding, no rebound. No rigidity noted . No masses appreciated. EXTREMITIES: Pedal pulses are 1-2+, no calf tenderness noted, Trace + pedal edema noted. No clubbing or cyanosis. NEUROLOGICAL: Patient is very lethargic and difficult to arouse but is not able to participate in neurological exam because of patient's current mental status PSYCH: Patient cannot participate in a neurologic and psych exam because of the patient's current mental status SKIN: No significant ecchymosis, rash, ulcerations or signs of pruritus noted. MUSCULOSKELETAL EXAM: No significant joint swelling noted. Results Laboratory Results: 11/03/17 05:20 11/03/17 05:20 11/02/17 11/02/17 11/02/17 16:34 17:00 17:00 WBC RBC Hgb Hct MCV MCH MCHC RDW Plt Count Seg Neutrophils % Lymphocytes % Monocytes % Eosinophils % Basophils % Absolute Neutrophils Absolute Lymphocytes Absolute Monocytes Absolute Eosinophils Absolute Basophils Carbonic Acid HCO3/H2CO3 Ratio ABG pH ABG pCO2 ABG pO2 ABG HCO3 ABG O2 Saturation ABG Base Excess FiO2 Sodium Potassium Chloride Carbon Dioxide Anion Gap BUN Creatinine Est GFR ( Amer) Est GFR (Non-Af Amer) Glucose Lactic Acid 1.2 Calcium Phosphorus Magnesium Total Bilirubin AST ALT Alkaline Phosphatase Ammonia Total Protein Albumin Triglycerides Cholesterol LDL Cholesterol Direct VLDL Cholesterol HDL Cholesterol Fluid Tube Number 1 4 CSF Volume 2.0 2.0 CSF Appearance CLEAR CLEAR CSF Color COLORLESS COLORLESS CSF WBC 1 1 CSF RBC 210 3 CSF Glucose CSF Total Protein 11/02/17 11/02/17 11/02/17 17:00 18:50 20:05 WBC RBC Hgb Hct MCV MCH MCHC RDW Plt Count Seg Neutrophils % Lymphocytes % Monocytes % Eosinophils % Basophils % Absolute Neutrophils Absolute Lymphocytes Absolute Monocytes Absolute Eosinophils Absolute Basophils Carbonic Acid 1.15 HCO3/H2CO3 Ratio 20:1 ABG pH 7.40 ABG pCO2 38.1 ABG pO2 80.9 ABG HCO3 23.0 ABG O2 Saturation 96.0 ABG Base Excess -1.5 FiO2 100 NRB Sodium Potassium Chloride Carbon Dioxide Anion Gap BUN Creatinine Est GFR ( Amer) Est GFR (Non-Af Amer) Glucose Lactic Acid Calcium Phosphorus Magnesium Total Bilirubin AST ALT Alkaline Phosphatase Ammonia < 8.7 L Total Protein Albumin Triglycerides Cholesterol LDL Cholesterol Direct VLDL Cholesterol HDL Cholesterol Fluid Tube Number CSF Volume CSF Appearance CSF Color CSF WBC CSF RBC CSF Glucose 76 H CSF Total Protein 52 11/03/17 11/03/17 11/03/17 03:36 03:36 03:36 WBC Cancelled RBC Cancelled Hgb Cancelled Hct Cancelled MCV Cancelled MCH Cancelled MCHC Cancelled RDW Cancelled Plt Count Cancelled Seg Neutrophils % Cancelled Lymphocytes % Cancelled Monocytes % Cancelled Eosinophils % Cancelled Basophils % Cancelled Absolute Neutrophils Cancelled Absolute Lymphocytes Cancelled Absolute Monocytes Cancelled Absolute Eosinophils Cancelled Absolute Basophils Cancelled Carbonic Acid HCO3/H2CO3 Ratio ABG pH ABG pCO2 ABG pO2 ABG HCO3 ABG O2 Saturation ABG Base Excess FiO2 Sodium Cancelled Potassium Cancelled Chloride Cancelled Carbon Dioxide Cancelled Anion Gap Cancelled BUN Cancelled Creatinine Cancelled Est GFR ( Amer) Cancelled Est GFR (Non-Af Amer) Cancelled Glucose Cancelled Lactic Acid Calcium Cancelled Phosphorus Magnesium Total Bilirubin Cancelled AST Cancelled ALT Cancelled Alkaline Phosphatase Cancelled Ammonia Cancelled Total Protein Cancelled Albumin Cancelled Triglycerides Cancelled Cholesterol Cancelled LDL Cholesterol Direct Cancelled VLDL Cholesterol Cancelled HDL Cholesterol Cancelled Fluid Tube Number CSF Volume CSF Appearance CSF Color CSF WBC CSF RBC CSF Glucose CSF Total Protein 11/03/17 11/03/17 11/03/17 03:36 05:20 05:20 WBC 20.7 H RBC 4.72 Hgb 13.1 L Hct 40.9 MCV 87 MCH 27.7 MCHC 32.0 RDW 14.1 H Plt Count 177 Seg Neutrophils % Not Reportable Lymphocytes % Not Reportable Monocytes % Not Reportable Eosinophils % Not Reportable Basophils % Not Reportable Absolute Neutrophils Not Reportable Absolute Lymphocytes Not Reportable Absolute Monocytes Not Reportable Absolute Eosinophils Not Reportable Absolute Basophils Not Reportable Carbonic Acid HCO3/H2CO3 Ratio ABG pH ABG pCO2 ABG pO2 ABG HCO3 ABG O2 Saturation ABG Base Excess FiO2 Sodium 148.3 H Potassium 5.6 H D Chloride 115 H Carbon Dioxide 22 Anion Gap 11 BUN 36 H Creatinine 1.03 Est GFR ( Amer) > 60 Est GFR (Non-Af Amer) > 60 Glucose 399 H Lactic Acid Calcium 8.3 L Phosphorus Cancelled 3.1 Magnesium Cancelled 2.1 Total Bilirubin 0.7 AST 63 H ALT 19 L Alkaline Phosphatase 55 Ammonia Total Protein 6.0 L Albumin 2.5 L Triglycerides 70 Cholesterol 84.72 LDL Cholesterol Direct 53 VLDL Cholesterol 14.0 HDL Cholesterol 15 L Fluid Tube Number CSF Volume CSF Appearance CSF Color CSF WBC CSF RBC CSF Glucose CSF Total Protein 11/03/17 05:20 WBC RBC Hgb Hct MCV MCH MCHC RDW Plt Count Seg Neutrophils % Lymphocytes % Monocytes % Eosinophils % Basophils % Absolute Neutrophils Absolute Lymphocytes Absolute Monocytes Absolute Eosinophils Absolute Basophils Carbonic Acid HCO3/H2CO3 Ratio ABG pH ABG pCO2 ABG pO2 ABG HCO3 ABG O2 Saturation ABG Base Excess FiO2 Sodium Potassium Chloride Carbon Dioxide Anion Gap BUN Creatinine Est GFR ( Amer) Est GFR (Non-Af Amer) Glucose Lactic Acid Calcium Phosphorus Magnesium Total Bilirubin AST ALT Alkaline Phosphatase Ammonia 13.2 Total Protein Albumin Triglycerides Cholesterol LDL Cholesterol Direct VLDL Cholesterol HDL Cholesterol Fluid Tube Number CSF Volume CSF Appearance CSF Color CSF WBC CSF RBC CSF Glucose CSF Total Protein 11/02/17 11/02/17 11/03/17 20:36 20:36 02:53 Creatine Kinase 4120 H Cancelled CK-MB (CK-2) 3.75 Troponin I 0.016 11/03/17 11/03/17 11/03/17 02:53 03:36 03:36 Creatine Kinase Cancelled CK-MB (CK-2) Cancelled Cancelled Troponin I Cancelled Cancelled 11/03/17 11/03/17 11/03/17 03:36 05:20 05:20 Creatine Kinase Cancelled 2496 H CK-MB (CK-2) 2.77 Troponin I < 0.012 11/03/17 11/03/17 08:46 08:46 Creatine Kinase 2353 H CK-MB (CK-2) 2.64 Troponin I < 0.012 EKG Comments: Yesterday's EKG shows atrial flutter with 2-1 conduction, this morning shows heart rate well controlled with variable conduction and atrial rhythm being atrial flutter. Impressions: Head CT 11/02/17 12:42 IMPRESSION: CHRONIC CHANGES OF ATROPHY AND MICROVASCULAR ISCHEMIA. Old right MCA infarct appears stable. NO ACUTE PROCESS. EVIDENCE OF ACUTE STROKE: NO. Chest X-Ray 11/02/17 14:29 IMPRESSION: Minimal left basilar densities as noted above which could represent atelectatic changes or minimal basilar infiltrate. Remaining lung cooney are clear. Other findings as noted above Assessment & Plan - Diagnosis (1) Atrial flutter with rapid ventricular response Is this a current diagnosis for this admission?: Yes (2) Unresponsive Is this a current diagnosis for this admission?: Yes (3) COPD (chronic obstructive pulmonary disease) Qualifiers: COPD type: unspecified COPD Qualified Code(s): J44.9 - Chronic obstructive pulmonary disease, unspecified Is this a current diagnosis for this admission?: Yes (4) Hypertension Qualifiers: Hypertension type: essential hypertension Qualified Code(s): I10 - Essential (primary) hypertension Is this a current diagnosis for this admission?: Yes (5) Respiratory distress Is this a current diagnosis for this admission?: Yes (6) Tobacco dependence Is this a current diagnosis for this admission?: Yes - Notes Notes: Atrial flutter fibrillation with rapid ventricular response: Yesterday patient had rapid heartbeat with 2-1 conduction. Blood pressure was on the low side therefore amiodarone drip with bolus protocol was used. Currently patient's heart rate is well controlled. Continue amiodarone at current dose. Continue Cardizem drip at current dose. Will recommend switch to multaq once patient able to take p.o. or has NG tube in. This is because of underlying severe COPD. Will consider chronic anticoagulation in this patient after about 24 hours since patient also had a lumbar puncture. Unresponsive: Patient has prior history of stroke. Cannot rule out underlying seizure disorder, new strokes been ruled out. Number puncture was negative for meningitis. COPD: Patient felt to have severe COPD. No evidence of CHF noted on review of chest x-ray. ABG shows significant AA gradient, may consider pulmonary evaluation and also CTA of the chest if clinically indicated. Hypertension: Blood pressure under reasonable control. Continue current agents. Respiratory distress: Exact etiology not clear but patient maintaining adequate oxygenation on high flow O2. Tobacco dependence: Recommend nicotine patch. Patient has multiple medical issues therefore prognosis is likely to be on the poor side. Dr. Grover to cover tomorrow. - Time Time Spent: 30 to 50 Minutes - CODE STATUS was discussed, patient remains full code. Surrogate decision-maker unchanged. Multiple medical problems were addressed. More than 50% of the time spent coordinating care, discussing management plans with involved caregivers. Management plans discussed with involved personnels. Medical decision making was of moderate to high complexity , patient's has multiple comorbidities.
--- NOTE | 2017-11-03 13:38 | XCELERA REPORT ---
[address] [address] Transthoracic Echocardiogram Report Name: TREY DAWSON Age: 67 yrs Gender: Male : 1950 Patient Status: Inpatient Patient Location: ICU^601^A Study Date: 11/03/2017 10:24 AM Height: 68 in Weight: 117 lb BSA: 1.6 m2 Procedure: A complete two-dimensional transthoracic echocardiogram was performed (2D, M-mode, spectral and color flow Doppler). The study was technically adequate with some images being suboptimal in quality. Reason For Study: tachycardia systolic murmur Ordering Physician: REJI MANNING Performed By: Cheyenne Stout Interpretation Summary The Ejection Fraction estimate is 40-45% Left ventricular systolic function is mildly reduced. There is borderline concentric left ventricular hypertrophy. The left ventricle is grossly normal size. LV diastolic function could not be adequately assessed due to atrial Flutter. There is mild global hypokinesis of the left ventricle. The right ventricular systolic function is normal. The right atrium is normal in size The left atrium is mildly dilated. There is no mitral valve stenosis. There is a trace amount of mitral regurgitation There is a mild amount of aortic regurgitation There is no aortic valve stenosis There is a trace or physiologic amount of tricuspid regurgitation Tricuspid regurgitation jet envelope not well defined to measure RV systolic pressure accurately. The aortic root is not well visualized but is probably normal size. The inferior vena cava was not well visualized There is no pericardial effusion. MMode/2D Measurements & Calculations RVDd: 2.0 cm LVIDd: 5.2 cm FS: 19.9 % Ao root diam: 2.9 cm IVSd: 0.78 cm LVIDs: 4.2 cm EDV(Teich): 131.3 ml LVPWd: 0.81 cm ESV(Teich): 78.0 ml Ao root area: 6.8 cm2 EF(Teich): 40.6 % LA dimension: 3.8 cm Doppler Measurements & Calculations MV E max therese: MV P1/2t max therese: Ao V2 max: LV V1 max P.4 cm/sec 76.7 cm/sec 106.6 cm/sec 2.5 mmHg MV P1/2t: 40.8 msec Ao max PG: LV V1 max: 4.5 mmHg 78.7 cm/sec MVA(P1/2t): 5.4 cm2 MV dec slope: 550.4 cm/sec2 MV dec time: 0.13 sec PA V2 max: TR max therese: 77.0 cm/sec 240.0 cm/sec PA max PG: TR max P.0 mmHg 2.4 mmHg Left Ventricle The left ventricle is grossly normal size. There is borderline concentric left ventricular hypertrophy. Left ventricular systolic function is mildly reduced. The Ejection Fraction estimate is 40-45%. LV diastolic function could not be adequately assessed due to atrial fibrilation. There is mild global hypokinesis of the left ventricle. Right Ventricle The right ventricle is grossly normal size. There is normal right ventricular wall thickness. The right ventricular systolic function is normal. Atria The right atrium is normal in size. The left atrium is mildly dilated. Interarterial septum not well visualized and not well dopplered. Cannot comment on ASD/PFO presence. Mitral Valve The mitral valve is grossly normal. There is no mitral valve stenosis. There is a trace amount of mitral regurgitation. Aortic Valve The aortic valve is grossly normal. There is no aortic valve stenosis. There is a mild amount of aortic regurgitation. Tricuspid Valve The tricuspid valve is not well visualized, but is grossly normal. There is no tricuspid stenosis. There is a trace or physiologic amount of tricuspid regurgitation. Tricuspid regurgitation jet envelope not well defined to measure RV systolic pressure accurately. Pulmonic Valve The pulmonic valve is not well visualized. Great Vessels The aortic root is not well visualized but is probably normal size. The inferior vena cava was not well visualized. Effusions There is no pericardial effusion. : REJI MANNING > Ifeanyi Porras
--- NOTE | 2017-11-03 15:50 | RADIOLOGY REPORT (SQ) ---
EXAM DESCRIPTION: CT HEAD WITH COMPLETED DATE/TIME: 11/03/2017 3:32 pm REASON FOR STUDY: unresponsive COMPARISON: CT brain 11/02/2017, 10/29/2017, 11/18/2016, 08/15/2016 TECHNIQUE: Axial images acquired through the brain with intravenous contrast. Images reviewed with b one, brain and subdural windows. Additional sagittal and coronal reconstructions were generated. Nadiya ges stored on PACS. All CT scanners at this facility use dose modulation, iterative reconstruction, and/or weight based d osing when appropriate to reduce radiation dose to as low as reasonably achievable (ALARA). [facility]: Dose Right [facility]: CareDose [facility]: Dose Right [facility]: Teradose 4D [facility]: [employer] CONTRAST TYPE AND DOSE: 59 mL of IV Isovue 370- low osmolar. RENAL FUNCTION: Creatinine 1.03 RADIATION DOSE: CT Rad equipment meets quality standard of care and radiation dose reduction techniq ues were employed. CTDIvol: 21.5 mGy. DLP: 432 mGy-cm.. LIMITATIONS: Limited contrast bolus FINDINGS: VENTRICLES: Normal size and contour. CEREBRUM: A broad area encephalomalacia is present in the right posterior frontal and posterior tempo ral cortex and subcortical white matter, similar compared to 11/02/2017 and 10/29/2017. This is new co mpared to CT exam from 08/15/2016 and likely represents a subacute infarct. There is stable chronic bifrontal and biparietal small vessel ischemic change with multiple old infar cts in the right deep periventricular white matter and right and left thalamus, unchanged. No abnormal brain parenchymal masses or enhancement. No gross acute intracranial hemorrhage. CEREBELLUM: Old lacunar infarcts in the mid bina. No acute cerebellar ischemic change. EXTRA-AXIAL SPACES: No fluid collections. No enhancing lesions. ORBITS AND GLOBE: No intra- or extraconal masses. Normal contour of globe without masses. CALVARIUM: No fracture. PARANASAL SINUSES: No fluid or mucosal thickening. SOFT TISSUES: No mass or hematoma. OTHER: No other significant finding. 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 No abnormal masses or enhancement in the brain parenchyma. No definite acute changes EVIDENCE OF ACUTE STROKE: NO. TECHNICAL DOCUMENTATION: JOB ID: [id number] Quality ID # [id number]: Final reports with documentation of one or more dose reduction techniques (e.g., Au tomated exposure control, adjustment of the mA and/or kV according to patient size, use of iterative reconstruction technique) 2010 [employer]- All Rights Reserved Reading location - IP/workstation name: [email or web address]-[email or web address]
--- NOTE | 2017-11-03 15:55 | RADIOLOGY REPORT (SQ) ---
EXAM DESCRIPTION: CTA CHEST COMPLETED DATE/TIME: 11/03/2017 3:32 pm REASON FOR STUDY: hypoxemia COMPARISON: CT angio chest 11/26/2015 AP chest 11/02/2017 TECHNIQUE: CT scan of the chest performed using helical scanning technique with dynamic intravenous contrast injection. Images reviewed with lung, soft tissue and bone windows. Reconstructed coronal and sagittal MPR images reviewed. Additional 3 dimensional post-processing performed to develop Maximal Intensity Projection images (CO P). All images stored on PACS. All CT scanners at this facility use dose modulation, iterative reconstruction, and/or weight based d osing when appropriate to reduce radiation dose to as low as reasonably achievable (ALARA). [facility]: Dose Right [facility]: CareDose [facility]: Dose Right [facility]: Teradose 4D [facility]: [employer] CONTRAST TYPE AND DOSE: contrast/concentration: Isovue 370.00 mg/ml; Total Contrast Delivered: 58.0 ml; Total Saline Delivered: 83.9 ml Contrast bolus optimized for the pulmonary arteries. Not diagnostic for the aorta. RENAL FUNCTION: Creatinine 1.0 RADIATION DOSE: CT Rad equipment meets quality standard of care and radiation dose reduction techniq ues were employed. CTDIvol: 7.9 - 15.0 mGy. DLP: 288 mGy-cm. . LIMITATIONS: None. FINDINGS: LUNGS AND PLEURA: There is consolidation in the left posterior costophrenic sulcus from ai rspace disease worrisome for pneumonia. Remainder of the lungs are grossly clear with enlarged airspaces in the upper lobes from obstructive disease. No pleural effusion. No pneumothorax. AORTA AND GREAT VESSELS: No aneurysm. Contrast bolus not optimized for the aorta. HEART: No pericardial effusion. No significant coronary artery calcifications. PULMONARY ARTERIES: No emboli visualized in the main pulmonary arteries or the segmental branches. HILAR AND MEDIASTINAL STRUCTURES: No identified masses or abnormal nodes. HARDWARE: None in the chest. UPPER ABDOMEN: No significant findings. Limited exam. THYROID AND OTHER SOFT TISSUES: No masses. No adenopathy. BONES: No acute or significant finding. 3D MIPS: Confirm above findings. OTHER: No other significant finding. IMPRESSION: No CT angio evidence of acute pulmonary emboli. Dense consolidation in the left posterior lung base worrisome for pneumonia. Obstructive lung disease COMMENT: Quality ID # [id number]: Final reports with documentation of one or more dose reduction techniques (e.g., Automated exposure control, adjustment of the mA and/or kV according to patient size, use of iterative reconstruction technique) TECHNICAL DOCUMENTATION: JOB ID: [id number] [employer] [facility] [employer]- All Rights Reserved Reading location - IP/workstation name: [facility]-[email or web address]
[2017-11-03] MEDS: DEXTROSE 5%-1/2 NORMAL SALINE 1,000 ML IV PRN (16:30)
[2017-11-03] MEDS: LORAZEPAM INJ 2 MG/1 ML VIAL IV PRN (16:35)
[2017-11-03 17:57] LABS: ARTERIAL BLOOD BASE EXCESS -1.1 mmol/L; ARTERIAL BLOOD FIO2 35%; ARTERIAL BLOOD H2CO3 1.12 mmol/L (1.05-1.35); ARTERIAL BLOOD HCO3 23.2 mmol/L (20-26); ARTERIAL BLOOD O2 SATURATION 97.7 % (94-98); ARTERIAL BLOOD PCO2 37.2 mmHg (35-45); ARTERIAL BLOOD PH 7.41 (7.35-7.45); ARTERIAL BLOOD PO2 100.2 mmHg (80-100); ARTERIAL BLOOD TOTAL CO2 24.3 mmol/L (23-27)
[2017-11-03] MEDS ORDERED: CEFTRIAXONE 2 GM/D5W RTU 2 GM/50 ML RTUPB IV SCH ×2 (18:00)
--- NOTE | 2017-11-03 18:06 | PDOC PROGRESS REPORT ---
Subjective Progress Note for:: 11/03/17 Subjective:: He had dyspneic overnight and had to be put on BiPAP. He has some evidence of systolic heart failure on echocardiogram and is in atrial fibrillation so that is probably compromising his breathing to some degree, and he also looks like he has got a left lower lobe pneumonia. He does have a history of aspiration pneumonia into the same area of his lung during previous admission. He is on a Cardizem drip and amiodarone drip, while he is on BiPAP his heart rate is okay when he comes off his heart rate seems to come up. Reason For Visit: UNRESPONSIVENESS, DEHYDRATION, ROGER, LEUKOCYTOSIS Physical Exam Vital Signs: Temp Pulse Resp BP Pulse Ox 98.6 F 137 H 21 H 141/79 H 93 11/03/17 16:00 11/03/17 16:00 11/03/17 17:32 11/03/17 16:00 11/03/17 17:32 Intake & Output 11/02/17 11/03/17 11/04/17 06:59 06:59 06:59 Intake Total 1611 Output Total 410 660 Balance 1201 -660 Weight 53.6 kg General appearance: PRESENT: disheveled, other - Unresponsive, currently stable on BiPAP, heart rate in the 90s on the monitor Eye exam: PRESENT: other - Pupils are pinpoint and nonreactive Teeth exam: PRESENT: dental caries, poor dentation Respiratory exam: PRESENT: decreased breath sounds, rhonchi - Left lower lobe, symmetrical. ABSENT: crackles, rales, wheezes Cardiovascular exam: PRESENT: irregular rhythm. ABSENT: diastolic murmur, systolic murmur Vascular exam: PRESENT: normal capillary refill GI/Abdominal exam: PRESENT: normal bowel sounds, soft. ABSENT: distended, guarding, mass, organolmegaly, rebound, tenderness Extremities exam: PRESENT: full ROM. ABSENT: calf tenderness, clubbing, pedal edema Neurological exam: PRESENT: other - GCS 3 Results Laboratory Results: 11/03/17 05:20 11/03/17 05:20 11/02/17 11/02/17 11/02/17 17:00 17:00 17:00 WBC RBC Hgb Hct MCV MCH MCHC RDW Plt Count Seg Neutrophils % Lymphocytes % Monocytes % Eosinophils % Basophils % Absolute Neutrophils Absolute Lymphocytes Absolute Monocytes Absolute Eosinophils Absolute Basophils Carbonic Acid HCO3/H2CO3 Ratio ABG pH ABG pCO2 ABG pO2 ABG HCO3 ABG O2 Saturation ABG Base Excess FiO2 Sodium Potassium Chloride Carbon Dioxide Anion Gap BUN Creatinine Est GFR ( Amer) Est GFR (Non-Af Amer) Glucose Calcium Phosphorus Magnesium Total Bilirubin AST ALT Alkaline Phosphatase Ammonia Total Protein Albumin Triglycerides Cholesterol LDL Cholesterol Direct VLDL Cholesterol HDL Cholesterol Fluid Tube Number 1 4 CSF Volume 2.0 2.0 CSF Appearance CLEAR CLEAR CSF Color COLORLESS COLORLESS CSF WBC 1 1 CSF RBC 210 3 CSF Glucose 76 H CSF Total Protein 52 11/02/17 11/02/17 11/03/17 18:50 20:05 03:36 WBC Cancelled RBC Cancelled Hgb Cancelled Hct Cancelled MCV Cancelled MCH Cancelled MCHC Cancelled RDW Cancelled Plt Count Cancelled Seg Neutrophils % Cancelled Lymphocytes % Cancelled Monocytes % Cancelled Eosinophils % Cancelled Basophils % Cancelled Absolute Neutrophils Cancelled Absolute Lymphocytes Cancelled Absolute Monocytes Cancelled Absolute Eosinophils Cancelled Absolute Basophils Cancelled Carbonic Acid 1.15 HCO3/H2CO3 Ratio 20:1 ABG pH 7.40 ABG pCO2 38.1 ABG pO2 80.9 ABG HCO3 23.0 ABG O2 Saturation 96.0 ABG Base Excess -1.5 FiO2 100 NRB Sodium Potassium Chloride Carbon Dioxide Anion Gap BUN Creatinine Est GFR ( Amer) Est GFR (Non-Af Amer) Glucose Calcium Phosphorus Magnesium Total Bilirubin AST ALT Alkaline Phosphatase Ammonia < 8.7 L Total Protein Albumin Triglycerides Cholesterol LDL Cholesterol Direct VLDL Cholesterol HDL Cholesterol Fluid Tube Number CSF Volume CSF Appearance CSF Color CSF WBC CSF RBC CSF Glucose CSF Total Protein 11/03/17 11/03/17 11/03/17 03:36 03:36 03:36 WBC RBC Hgb Hct MCV MCH MCHC RDW Plt Count Seg Neutrophils % Lymphocytes % Monocytes % Eosinophils % Basophils % Absolute Neutrophils Absolute Lymphocytes Absolute Monocytes Absolute Eosinophils Absolute Basophils Carbonic Acid HCO3/H2CO3 Ratio ABG pH ABG pCO2 ABG pO2 ABG HCO3 ABG O2 Saturation ABG Base Excess FiO2 Sodium Cancelled Potassium Cancelled Chloride Cancelled Carbon Dioxide Cancelled Anion Gap Cancelled BUN Cancelled Creatinine Cancelled Est GFR ( Amer) Cancelled Est GFR (Non-Af Amer) Cancelled Glucose Cancelled Calcium Cancelled Phosphorus Cancelled Magnesium Cancelled Total Bilirubin Cancelled AST Cancelled ALT Cancelled Alkaline Phosphatase Cancelled Ammonia Cancelled Total Protein Cancelled Albumin Cancelled Triglycerides Cancelled Cholesterol Cancelled LDL Cholesterol Direct Cancelled VLDL Cholesterol Cancelled HDL Cholesterol Cancelled Fluid Tube Number CSF Volume CSF Appearance CSF Color CSF WBC CSF RBC CSF Glucose CSF Total Protein 11/03/17 11/03/17 11/03/17 05:20 05:20 05:20 WBC 20.7 H RBC 4.72 Hgb 13.1 L Hct 40.9 MCV 87 MCH 27.7 MCHC 32.0 RDW 14.1 H Plt Count 177 Seg Neutrophils % Not Reportable Lymphocytes % Not Reportable Monocytes % Not Reportable Eosinophils % Not Reportable Basophils % Not Reportable Absolute Neutrophils Not Reportable Absolute Lymphocytes Not Reportable Absolute Monocytes Not Reportable Absolute Eosinophils Not Reportable Absolute Basophils Not Reportable Carbonic Acid HCO3/H2CO3 Ratio ABG pH ABG pCO2 ABG pO2 ABG HCO3 ABG O2 Saturation ABG Base Excess FiO2 Sodium 148.3 H Potassium 5.6 H D Chloride 115 H Carbon Dioxide 22 Anion Gap 11 BUN 36 H Creatinine 1.03 Est GFR ( Amer) > 60 Est GFR (Non-Af Amer) > 60 Glucose 399 H Calcium 8.3 L Phosphorus 3.1 Magnesium 2.1 Total Bilirubin 0.7 AST 63 H ALT 19 L Alkaline Phosphatase 55 Ammonia 13.2 Total Protein 6.0 L Albumin 2.5 L Triglycerides 70 Cholesterol 84.72 LDL Cholesterol Direct 53 VLDL Cholesterol 14.0 HDL Cholesterol 15 L Fluid Tube Number CSF Volume CSF Appearance CSF Color CSF WBC CSF RBC CSF Glucose CSF Total Protein 11/02/17 11/02/17 11/03/17 20:36 20:36 02:53 Creatine Kinase 4120 H Cancelled CK-MB (CK-2) 3.75 Troponin I 0.016 11/03/17 11/03/17 11/03/17 02:53 03:36 03:36 Creatine Kinase Cancelled CK-MB (CK-2) Cancelled Cancelled Troponin I Cancelled Cancelled 11/03/17 11/03/17 11/03/17 03:36 05:20 05:20 Creatine Kinase Cancelled 2496 H CK-MB (CK-2) 2.77 Troponin I < 0.012 11/03/17 11/03/17 08:46 08:46 Creatine Kinase 2353 H CK-MB (CK-2) 2.64 Troponin I < 0.012 Impressions: Chest X-Ray 11/02/17 14:29 IMPRESSION: Minimal left basilar densities as noted above which could represent atelectatic changes or minimal basilar infiltrate. Remaining lung cooney are clear. Other findings as noted above Chest/Abdomen CTA 11/03/17 00:00 IMPRESSION: No CT angio evidence of acute pulmonary emboli. Dense consolidation in the left posterior lung base worrisome for pneumonia. 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 No abnormal masses or enhancement in the brain parenchyma. No definite acute changes EVIDENCE OF ACUTE STROKE: NO. Assessment & Plan - Diagnosis (1) Unresponsive Is this a current diagnosis for this admission?: Yes Plan: General like he has had any new stroke on his head CT today. This is probably a manifestation of a metabolic encephalopathy due to all of his many medical issues exacerbated at once. (2) Acute kidney injury Is this a current diagnosis for this admission?: Yes Plan: Resolved (3) Rhabdomyolysis Qualifiers: Rhabdomyolysis type: non-traumatic Qualified Code(s): M62.82 - Rhabdomyolysis Is this a current diagnosis for this admission?: Yes Plan: Continue IV fluid administration and monitoring urine output, which is currently good (4) Sepsis Qualifiers: Sepsis type: sepsis due to unspecified organism Qualified Code(s): A41.9 - Sepsis, unspecified organism Is this a current diagnosis for this admission?: Yes Plan: Broad-spectrum antibiotics. Cultures thus far negative. Likely source of the left lower lobe pneumonia, most likely due to aspiration which is been a problem for him before. (5) Aspiration pneumonia Qualifiers: Aspiration pneumonia type: unspecified Laterality: left Lung location: lower lobe of lung Qualified Code(s): J69.0 - Pneumonitis due to inhalation of food and vomit Is this a current diagnosis for this admission?: Yes Plan: Currently on broad-spectrum antibiotics, should his cultures turn negative will stop the vancomycin leave him on Zosyn. (6) Atrial flutter with rapid ventricular response Is this a current diagnosis for this admission?: Yes Plan: He is on Cardizem and amiodarone drips, cardiology been consulted. His EF is around 40% on his echocardiogram, but he does not appear substantially fluid overloaded at this time; rather, he appears to be a bit dehydrated but it is improving with IV fluids. His rate gets worse when he comes off BiPAP, so hope that as his respiratory status improves his heart rate will get better control. If he remains symptomatic even with a controlled rate, he may need to be cardioverted, but will talk about this with cardiology. - Time Time Spent with patient: 35 or more minutes Total Critical Time (Minutes): 35 Medications reviewed and adjusted accordingly: Yes
[2017-11-03] MEDS ORDERED: ONDANSETRON HCL INJ/PF 4 MG/2 ML SDV ONE (18:42)
[2017-11-03] MEDS ORDERED: METOPROLOL TARTRATE PF/INJ 5 MG/5 ML SDV IV ONE ×3 (18:45→18:55)
[2017-11-03] MEDS: METHYLPREDNISOLONE INJ 40 MG/1 ML SDV IV SCH (18:51)
[2017-11-03] MEDS: VANCOMYCIN HCL 500 MG in DEXTROSE 5%-WATER 100 ML IV SCH (18:53)
[2017-11-03] MEDS ORDERED: ONDANSETRON HCL INJ/PF 4 MG/2 ML SDV IV PRN (19:01)
[2017-11-03] MEDS ORDERED: METOPROLOL TARTRATE PF/INJ 5 MG/5 ML SDV IV SCH (19:15)
[2017-11-03] MEDS: THIAMINE HCL 100 MG, FOLIC ACID 1 MG in NORMAL SALINE 250 ML IV SCH (19:28)
[2017-11-04] MEDS: PIPERACILLIN SODIUM/TAZOBACTAM 3.375 GM in NORMAL SALINE 100 ML IV SCH ×4 (00:24→18:40)
[2017-11-04] MEDS: METHYLPREDNISOLONE INJ 40 MG/1 ML SDV IV SCH ×3 (03:41→18:38)
[2017-11-04] MEDS: LACTULOSE SYRUP 20 GM/30 ML UDCUP PO SCH ×3 (03:42→18:40)
[2017-11-04] MEDS: DEXTROSE 5%-1/2 NORMAL SALINE 1,000 ML IV PRN ×2 (05:33→18:44)
[2017-11-04 06:39] LABS: HEMATOCRIT 38.3 % (37.9-51.0); HEMOGLOBIN 12.6 g/dL (13.5-17.0); MEAN CORPUSCULAR HEMOGLOBIN 27.8 pg (27.0-33.4); MEAN CORPUSCULAR HGB CONC 32.9 g/dL (32.0-36.0); MEAN CORPUSCULAR VOLUME 85 fl (80-97); PLATELET COUNT 237 10^3/uL (150-450); RED BLOOD COUNT 4.52 10^6/uL (4.35-5.55); RED CELL DISTRIBUTION WIDTH 13.9 % (11.5-14.0); WHITE BLOOD COUNT 10.7 10^3/uL (4.0-10.5)
[2017-11-04 06:49] LABS: ALANINE AMINOTRANSFERASE 27 U/L (21-72); ALBUMIN 3.2 g/dL (3.5-5.0); ALKALINE PHOSPHATASE 71 U/L (38-126); ANION GAP 14 (5-19); ASPARTATE AMINO TRANSFERASE 40 U/L (17-59); BILIRUBIN,DIRECT 0.5 mg/dL (0.0-0.4); BILIRUBIN,TOTAL 0.8 mg/dL (0.2-1.3); BLOOD UREA NITROGEN 14 mg/dL (7-20); CALCIUM 8.6 mg/dL (8.4-10.2); CARBON DIOXIDE 22 mmol/L (22-30); CHLORIDE 108 mmol/L (98-107); GLUCOSE 144 mg/dL (75-110); POTASSIUM 4.1 mmol/L (3.6-5.0); SODIUM 144.1 mmol/L (137-145); TOTAL PROTEIN 6.8 g/dL (6.3-8.2)
[2017-11-04 07:04] LABS: ABSOLUTE LYMPHOCYTES# (MANUAL) 0.6 10^3/uL (0.5-4.7); BASOPHILS % (MANUAL) 1 % (0-2); EOSINOPHILS % (MANUAL) 0 % (0-6); LYMPHOCYTES % (MANUAL) 6 % (13-45); MONOCYTES % (MANUAL) 0 % (3-13); SEGMENTED NEUTROPHILS % (MAN) 93 % (42-78); TOTAL CELLS COUNTED 100; TOXIC GRANULATION SLIGHT
[2017-11-04 07:05] LABS: PLATELET COMMENT ADEQUATE; POLYCHROMASIA SLIGHT
--- NOTE | 2017-11-04 08:20 | EKG REPORT ---
SEVERITY:- ABNORMAL ECG - PROBABLE SINUS RHYTHM WITH FREQUENT APCS CANNOT R/O AFIB RIGHT BUNDLE BRANCH BLOCK LEFT VENTRICULAR HYPERTROPHY : Confirmed by: Ifeanyi Porras 04-Nov-2017 08:19:30
[2017-11-04] MEDS: ENOXAPARIN SODIUM INJ 60 MG/0.6 ML DISP.SYRIN SUBCUT SCH ×2 (11:23→21:03)
--- NOTE | 2017-11-04 14:07 | Progress Note ---
Provider Note Provider Note: ID Consult Note- I was asked to review this patient's chart by the Pharmacy Service. The patient presented with altered mental status. He has not had any fever during the hospitalization. CT scan of the head is consistent with subacute infarcts. CSF is not suggestive of infection. Blood cultures and CSF cultures are negative. CXR is unremarkable, but the CT scan shows a LLL infiltrate. WBC was elevated at the time of admission. It has come down to near normal today. It is not clear that this patient has a pneumonia as there is no evidence of an infiltrate on the plain CXR. I do see the abnormality on the CT scan, but I would expect the patient to have fever and pulmonary symptoms. If you wish to treat as a pneumonia, would continue pip-tazobactam (Zosyn) for a total of 7 days. Recommend discontinuing vancomycin. Please contact me if there are questions. John Dolan MD Pager: [phone]
--- NOTE | 2017-11-04 15:43 | EKG REPORT ---
SEVERITY:- ABNORMAL ECG - SINUS RHYTHM ATRIAL PREMATURE COMPLEX RIGHT BUNDLE BRANCH BLOCK LEFT VENTRICULAR HYPERTROPHY : Confirmed by: Ifeanyi Porras 04-Nov-2017 15:43:26
--- NOTE | 2017-11-04 16:20 | PDOC PROGRESS REPORT ---
Subjective Progress Note for:: 11/04/17 Subjective:: Vital signs seem to have stabilized. He converted to a sinus rhythm overnight. He has frequent PVCs on his telemetry. We were able to get him off BiPAP and now is on 2 L and breathing comfortably. He still not waking up on command, but apparently intermittently he will come to in interact to some degree. He is not eating anything and so were given him all the medicines IV. Reason For Visit: UNRESPONSIVENESS, DEHYDRATION, ROGER, LEUKOCYTOSIS Physical Exam Vital Signs: Temp Pulse Resp BP Pulse Ox 97.5 F 80 19 142/80 H 98 11/04/17 14:36 11/04/17 14:00 11/04/17 14:36 11/04/17 14:36 11/04/17 15:22 Intake & Output 11/03/17 11/04/17 11/05/17 06:59 06:59 06:59 Intake Total 1611 3025 Output Total 410 1865 375 Balance 1201 1160 -375 Weight 53.6 kg 53.4 kg General appearance: PRESENT: no acute distress, disheveled, thin, well-developed Head exam: PRESENT: atraumatic, normocephalic Teeth exam: PRESENT: dental caries, poor dentation Respiratory exam: PRESENT: rhonchi - On both sides of his chest. ABSENT: accessory muscle use, rales, unlabored, wheezes Cardiovascular exam: PRESENT: RRR - Frequent irregular beats. ABSENT: diastolic murmur, rubs, systolic murmur, tachycardia Vascular exam: PRESENT: normal capillary refill GI/Abdominal exam: PRESENT: normal bowel sounds, soft. ABSENT: distended, guarding, mass, organolmegaly, rebound, tenderness Extremities exam: ABSENT: calf tenderness, clubbing, pedal edema Neurological exam: PRESENT: other - Not wanting to wake up on verbal command, but does grimace from moderately noxious stimuli Skin exam: PRESENT: dry, warm Results Laboratory Results: 11/04/17 06:10 11/04/17 06:10 11/03/17 11/04/17 11/04/17 17:40 06:10 06:10 WBC 10.7 H RBC 4.52 Hgb 12.6 L Hct 38.3 MCV 85 MCH 27.8 MCHC 32.9 RDW 13.9 Plt Count 237 Seg Neutrophils % Not Reportable Lymphocytes % Not Reportable Monocytes % Not Reportable Eosinophils % Not Reportable Basophils % Not Reportable Absolute Neutrophils Not Reportable Absolute Lymphocytes Not Reportable Absolute Monocytes Not Reportable Absolute Eosinophils Not Reportable Absolute Basophils Not Reportable Carbonic Acid 1.12 HCO3/H2CO3 Ratio 20:1 ABG pH 7.41 ABG pCO2 37.2 ABG pO2 100.2 H ABG HCO3 23.2 ABG O2 Saturation 97.7 ABG Base Excess -1.1 FiO2 35% Sodium 144.1 Potassium 4.1 Chloride 108 H Carbon Dioxide 22 Anion Gap 14 BUN 14 Creatinine 0.73 Est GFR ( Amer) > 60 Est GFR (Non-Af Amer) > 60 Glucose 144 H Calcium 8.6 Total Bilirubin 0.8 AST 40 ALT 27 Alkaline Phosphatase 71 Total Protein 6.8 Albumin 3.2 L 11/02/17 11/02/17 11/03/17 20:36 20:36 02:53 Creatine Kinase 4120 H Cancelled CK-MB (CK-2) 3.75 Troponin I 0.016 11/03/17 11/03/17 11/03/17 02:53 03:36 03:36 Creatine Kinase Cancelled CK-MB (CK-2) Cancelled Cancelled Troponin I Cancelled Cancelled 11/03/17 11/03/17 11/03/17 03:36 05:20 05:20 Creatine Kinase Cancelled 2496 H CK-MB (CK-2) 2.77 Troponin I < 0.012 11/03/17 11/03/17 08:46 08:46 Creatine Kinase 2353 H CK-MB (CK-2) 2.64 Troponin I < 0.012 Impressions: Chest X-Ray 11/02/17 14:29 IMPRESSION: Minimal left basilar densities as noted above which could represent atelectatic changes or minimal basilar infiltrate. Remaining lung cooney are clear. Other findings as noted above Chest/Abdomen CTA 11/03/17 00:00 IMPRESSION: No CT angio evidence of acute pulmonary emboli. Dense consolidation in the left posterior lung base worrisome for pneumonia. 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 No abnormal masses or enhancement in the brain parenchyma. No definite acute changes EVIDENCE OF ACUTE STROKE: NO. Assessment & Plan - Diagnosis (1) Acute kidney injury Is this a current diagnosis for this admission?: Yes Plan: Resolved (2) Rhabdomyolysis Qualifiers: Rhabdomyolysis type: non-traumatic Qualified Code(s): M62.82 - Rhabdomyolysis Is this a current diagnosis for this admission?: Yes Plan: Improving with IV fluids (3) Sepsis Qualifiers: Sepsis type: sepsis due to unspecified organism Qualified Code(s): A41.9 - Sepsis, unspecified organism Is this a current diagnosis for this admission?: Yes Plan: Responding well to antibiotic therapy, blood cultures have been negative. (4) Aspiration pneumonia Qualifiers: Aspiration pneumonia type: unspecified Laterality: left Lung location: lower lobe of lung Qualified Code(s): J69.0 - Pneumonitis due to inhalation of food and vomit Is this a current diagnosis for this admission?: Yes Plan: On aspiration precautions. On broad-spectrum antibiotics. Will likely discontinue the vancomycin today because of his blood cultures being negative and our treatment being focused towards aspiration pneumonia. (5) Atrial flutter with rapid ventricular response Is this a current diagnosis for this admission?: Yes Plan: Resolved. He should probably be on a beta-anahi given his heart failure and his probable emphysema. (6) Metabolic encephalopathy Is this a current diagnosis for this admission?: Yes Plan: Secondary to the above issues. Apparently he does not talk very much at baseline he comes to periodically but I suspect that his presentation has to do with his systemic illnesses. - Time Time Spent with patient: 35 or more minutes Total Critical Time (Minutes): 35 Medications reviewed and adjusted accordingly: Yes
[2017-11-04] MEDS: DILTIAZEM HCL/D5W 125 MG/125 ML RTUINJ IV PRN (18:39)
[2017-11-04] MEDS: VANCOMYCIN HCL 500 MG in DEXTROSE 5%-WATER 100 ML IV SCH (19:22)
[2017-11-04] MEDS: THIAMINE HCL 100 MG, FOLIC ACID 1 MG in NORMAL SALINE 250 ML IV SCH (20:31)
[2017-11-04 21:08] LABS: HSV I DNA Negative (Negative)
[2017-11-05] MEDS: PIPERACILLIN SODIUM/TAZOBACTAM 3.375 GM in NORMAL SALINE 100 ML IV SCH ×4 (00:05→18:14)
[2017-11-05] MEDS: METHYLPREDNISOLONE INJ 40 MG/1 ML SDV IV SCH ×3 (02:44→18:15)
[2017-11-05] MEDS: LACTULOSE SYRUP 20 GM/30 ML UDCUP PO SCH ×3 (02:44→13:08)
[2017-11-05 03:53] LABS: ABSOLUTE LYMPHOCYTES (AUTO) 0.6 10^3/uL (0.5-4.7); ABSOLUTE MONOCYTES (AUTO) 0.1 10^3/uL (0.1-1.4); ABSOLUTE NEUT (AUTO) 9.8 10^3/uL (1.7-8.2); BASOPHILS % (AUTO) 0.2 % (0-2); HEMATOCRIT 34.5 % (37.9-51.0); HEMOGLOBIN 11.5 g/dL (13.5-17.0); MEAN CORPUSCULAR HEMOGLOBIN 27.6 pg (27.0-33.4); MEAN CORPUSCULAR HGB CONC 33.2 g/dL (32.0-36.0); MEAN CORPUSCULAR VOLUME 83 fl (80-97); MONOCYTES % (AUTO) 1.1 % (3-13); PLATELET COUNT 228 10^3/uL (150-450); RED BLOOD COUNT 4.16 10^6/uL (4.35-5.55); RED CELL DISTRIBUTION WIDTH 13.4 % (11.5-14.0); SEGMENTED NEUTROPHILS % (AUTO) 92.7 % (42-78); TOTAL CELLS COUNTED % (AUTO) 100 %; WHITE BLOOD COUNT 10.6 10^3/uL (4.0-10.5)
[2017-11-05 04:07] LABS: ALANINE AMINOTRANSFERASE 36 U/L (21-72); ALBUMIN 3.1 g/dL (3.5-5.0); ALKALINE PHOSPHATASE 62 U/L (38-126); ANION GAP 9 (5-19); ASPARTATE AMINO TRANSFERASE 47 U/L (17-59); BILIRUBIN,DIRECT 0.4 mg/dL (0.0-0.4); BILIRUBIN,TOTAL 0.9 mg/dL (0.2-1.3); BLOOD UREA NITROGEN 16 mg/dL (7-20); CALCIUM 8.8 mg/dL (8.4-10.2); CARBON DIOXIDE 25 mmol/L (22-30); CHLORIDE 107 mmol/L (98-107); GLUCOSE 148 mg/dL (75-110); POTASSIUM 3.7 mmol/L (3.6-5.0); SODIUM 140.7 mmol/L (137-145)
[2017-11-05] MEDS: METOPROLOL TARTRATE PF/INJ 5 MG/5 ML SDV IV PRN ×2 (06:17→10:56)
[2017-11-05] MEDS: DEXTROSE 5%-1/2 NORMAL SALINE 1,000 ML IV PRN (06:59)
--- NOTE | 2017-11-05 09:54 | EKG REPORT ---
SEVERITY:- ABNORMAL ECG - SINUS TACHYCARDIA MULTIFORM VENTRICULAR PREMATURE COMPLEXES PROBABLE LEFT ATRIAL ABNORMALITY RIGHT BUNDLE BRANCH BLOCK LEFT VENTRICULAR HYPERTROPHY : Confirmed by: Ifeanyi Porras 05-Nov-2017 09:53:42
[2017-11-05] MEDS: POTASSI CL 20 MEQ/D5-1/2NS 1L 1,000 ML IV PRN (10:57)
[2017-11-05] MEDS: ENOXAPARIN SODIUM INJ 60 MG/0.6 ML DISP.SYRIN SUBCUT SCH ×2 (11:01→22:18)
[2017-11-05] MEDS: VANCOMYCIN HCL 500 MG in DEXTROSE 5%-WATER 100 ML IV SCH ×2 (11:20→22:19)
[2017-11-05 11:58] LABS: HSV II DNA Negative (Negative)
[2017-11-05] MEDS ORDERED: METOPROLOL TARTRATE PF/INJ 5 MG/5 ML SDV IV SCH (12:00)
[2017-11-05] MEDS: ENALAPRILAT DIHYDRATE INJ/PF 2.5 MG/2 ML SDV IV SCH ×2 (12:59→18:15)
[2017-11-05] MEDS: HYDRALAZINE HCL INJ/PF 20 MG/1 ML SDV IV PRN ×2 (13:49→20:57)
--- NOTE | 2017-11-05 16:40 | PDOC PROGRESS REPORT ---
Subjective Progress Note for:: 11/05/17 Subjective:: No adverse events overnight. He has managed to stay in a sinus rhythm. He is more awake this morning and he attempts to answer questions but is dysarthric. Based on information I am able to gather about him, I suspect this is probably his baseline. He was able to identify a pen and a watch and when I asked him where he was he mumbled something that sounded like [place]. He coughed and had a little bit of posttussive emesis. He had a suction device in his hand and was using it to suction his secretions. Reason For Visit: UNRESPONSIVENESS, DEHYDRATION, ROGER, LEUKOCYTOSIS Physical Exam Vital Signs: Temp Pulse Resp BP Pulse Ox 98.2 F 91 19 136/79 H 100 11/05/17 16:00 11/05/17 16:00 11/05/17 16:00 11/05/17 16:00 11/05/17 16:00 Intake & Output 11/04/17 11/05/17 11/06/17 06:59 06:59 06:59 Intake Total 3025 2720 0 Output Total 1865 1220 1350 Balance 1160 1500 -1350 Weight 53.4 kg 54.9 kg General appearance: PRESENT: no acute distress, cooperative, thin, well- developed, other - Dysarthric Head exam: PRESENT: atraumatic, normocephalic Teeth exam: PRESENT: dental caries, poor dentation Respiratory exam: PRESENT: rhonchi - Bilateral, unlabored. ABSENT: rales, wheezes Cardiovascular exam: PRESENT: RRR - Occasional premature beats. ABSENT: diastolic murmur, rubs, systolic murmur Vascular exam: PRESENT: normal capillary refill GI/Abdominal exam: PRESENT: normal bowel sounds, soft. ABSENT: distended, guarding, mass, organolmegaly, rebound, tenderness Extremities exam: PRESENT: full ROM. ABSENT: calf tenderness, clubbing, pedal edema Neurological exam: PRESENT: alert, awake, oriented to person, oriented to place , other - Cannot move his left arm and his left leg which I believe is chronic, and he has some muscle spasticity in his right upper extremity which is the arm with a blood pressure cuff Results Laboratory Results: 11/05/17 03:38 11/05/17 03:38 11/05/17 11/05/17 03:38 03:38 WBC 10.6 H RBC 4.16 L Hgb 11.5 L Hct 34.5 L MCV 83 MCH 27.6 MCHC 33.2 RDW 13.4 Plt Count 228 Seg Neutrophils % 92.7 H Lymphocytes % 6.0 L Monocytes % 1.1 L Eosinophils % 0.0 Basophils % 0.2 Absolute Neutrophils 9.8 H Absolute Lymphocytes 0.6 Absolute Monocytes 0.1 Absolute Eosinophils 0.0 Absolute Basophils 0.0 Sodium 140.7 Potassium 3.7 Chloride 107 Carbon Dioxide 25 Anion Gap 9 BUN 16 Creatinine 0.75 Est GFR ( Amer) > 60 Est GFR (Non-Af Amer) > 60 Glucose 148 H Calcium 8.8 Total Bilirubin 0.9 AST 47 ALT 36 Alkaline Phosphatase 62 Total Protein 7.0 Albumin 3.1 L 11/02/17 17:00 Cerebral Spinal Fluid - Tube 3 (Csf) Gram Stain - Final 11/02/17 17:00 Cerebral Spinal Fluid - Tube 3 (Csf) CSF Culture - Final NO GROWTH 3 DAYS 11/02/17 11/02/17 11/03/17 20:36 20:36 02:53 Creatine Kinase 4120 H Cancelled CK-MB (CK-2) 3.75 Troponin I 0.016 11/03/17 11/03/17 11/03/17 02:53 03:36 03:36 Creatine Kinase Cancelled CK-MB (CK-2) Cancelled Cancelled Troponin I Cancelled Cancelled 11/03/17 11/03/17 11/03/17 03:36 05:20 05:20 Creatine Kinase Cancelled 2496 H CK-MB (CK-2) 2.77 Troponin I < 0.012 11/03/17 11/03/17 08:46 08:46 Creatine Kinase 2353 H CK-MB (CK-2) 2.64 Troponin I < 0.012 Impressions: Chest X-Ray 11/02/17 14:29 IMPRESSION: Minimal left basilar densities as noted above which could represent atelectatic changes or minimal basilar infiltrate. Remaining lung cooney are clear. Other findings as noted above Chest/Abdomen CTA 11/03/17 00:00 IMPRESSION: No CT angio evidence of acute pulmonary emboli. Dense consolidation in the left posterior lung base worrisome for pneumonia. 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 No abnormal masses or enhancement in the brain parenchyma. No definite acute changes EVIDENCE OF ACUTE STROKE: NO. Assessment & Plan - Diagnosis (1) Acute kidney injury Is this a current diagnosis for this admission?: Yes Plan: Resolved (2) Rhabdomyolysis Qualifiers: Rhabdomyolysis type: non-traumatic Qualified Code(s): M62.82 - Rhabdomyolysis Is this a current diagnosis for this admission?: Yes Plan: Improving with IV fluids (3) Sepsis Qualifiers: Sepsis type: sepsis due to unspecified organism Qualified Code(s): A41.9 - Sepsis, unspecified organism Is this a current diagnosis for this admission?: Yes Plan: Responding well to antibiotic therapy, blood cultures have been negative. His white blood count is normal he is now afebrile. (4) Aspiration pneumonia Qualifiers: Aspiration pneumonia type: unspecified Laterality: left Lung location: lower lobe of lung Qualified Code(s): J69.0 - Pneumonitis due to inhalation of food and vomit Is this a current diagnosis for this admission?: Yes Plan: On aspiration precautions. He is on Unasyn. We are keeping him n.p.o. until we can get a speech therapy evaluation for swallow study. (5) Atrial flutter with rapid ventricular response Is this a current diagnosis for this admission?: Yes Plan: Resolved. He should probably be on a beta-anahi given his heart failure and his probable emphysema. [employer] been consulted. (6) Metabolic encephalopathy Is this a current diagnosis for this admission?: Yes Plan: Resolved - Time Time Spent with patient: 35 or more minutes Medications reviewed and adjusted accordingly: Yes
[2017-11-05] MEDS: THIAMINE HCL 100 MG, FOLIC ACID 1 MG in NORMAL SALINE 250 ML IV SCH (20:56)
--- NOTE | 2017-11-05 22:40 | PROGRESS NOTE E ---
Progress Note NAME: TREY DAWSON : 1950 AGE: 67Y DATE: 11/05/2017 ROOM: 601 SUBJECTIVE: The patient is a little more awake but still not responding. He does move all 4 extremities. He still remains in sinus rhythm but his blood pressure is high. No other history is obtainable. There is no ventricle or arrhythmia seen. There is no recurrence of atrial flutter. OBJECTIVE: GENERAL: On examination, the patient appears to be chronically ill and appears older than his stated age. VITAL SIGNS: He is afebrile with a temperature of 98.4 degrees Fahrenheit, his pulse is 70 beats per minute, blood pressure 165/102, respirations 20 per minute, O2 sat 100% on 2 L nasal cannula. HEENT: Head is atraumatic, normocephalic. Eyes: Pupils are equal, round and regular, reactive to light. ENT is negative. NECK: Supple. There is no JVD. Carotids are equal. There is no bruit. There is no goiter. There is no lymphadenopathy. LUNGS: Show diminished air entry and prolonged expiration without any rhonchi, rales or wheezing. HEART: S1, S2 is heard. There is no S3 gallop. There is no S4 gallop. There is a systolic murmur in the left sternal border and the apex. There is no rub. ABDOMEN: Soft, nontender. There is no hepatosplenomegaly. Bowel sounds are well heard. EXTREMITIES: Femorals are diminished. There are no femoral bruits. Leg pulses are diminished. There is no pedal edema. There is no cyanosis or clubbing. CENTRAL NERVOUS SYSTEM: The patient does not respond although he does open his eyes when he wakes up. He does move all 4 extremities. PSYCHIATRIC: Not assessed since the patient will not cooperate. DIAGNOSTICS: The patient's EKG shows sinus tachycardia, *------*, probable left atrial abnormality, right bundle branch block present, left ventricle hypertrophy. The patient's white count is 10,600; hemoglobin is 11.5, hematocrit is 34.5, and his platelet count is 228,000. The patient's sodium is 140.7, potassium 3.7, CO2 25. The patient's BUN is 16, creatinine 0.75, GFR greater than 60, glucose 148 and the patient's calcium is 8.8. His liver function tests are normal. His albumin is 3.1, total protein is 7.0. ASSESSMENT: 1. PAROXYSMAL ATRIAL FLUTTER AT PRESENT THE PATIENT IN SINUS *------*. Note that the patient is on Cardizem 2.5 mg per hour. This has been discontinued by the attending physician and the patient is on Lopressor at 5 mg IV push q.6 hours. 2. HYPERTENSION, NOT WELL CONTROLLED. Will add Vasotec injections and if this does not control the blood pressure will also add hydralazine intravenously at 10 mg IV q.8 hours. Note the patient is now taking p.o. and the patient does not have an NG tube. 3. COPD AT PRESENT SEEMS TO BE STABLE. 4. HISTORY OF TOBACCO ABUSE. 5. UNRESPONSIVENESS, ?ETIOLOGY. 6. CARDIOMYOPATHY WITH THE PATIENT'S LV EJECTION FRACTION 40-45%. RECOMMENDATIONS: Will continue Lovenox at 55 mg subcutaneously q.12 hours. Continue his other current medication. Note, his medication has been reviewed. Medication has been added. Note, 40 minutes spent on the patient with more than 50% of the time spent on direct patient care. Medical decision-making is of high complexity in view of the patient's blood pressure being uncontrolled. The patient will need to find a medication that can be given intravenously. In view of the patient's cardiomyopathy and since a coronary artery disease has not been excluded, would recommend adding Vasotec and also stopping the patient's Cardizem and starting the patient on a beta-anahi would be agreeable. If still there is a problem with maintaining the patient's heart rhythm, then would recommend starting the patient on Brevibloc infusion. Forty minutes spent on the patient with more than 50% of the time spent in direct patient care. Will follow with you. Discussed with the attending physician and the nurses taking care of the patient. DICTATING PHYSICIAN: BRIAN BRYANT M.D. [id number] KIMY#: [id number] ID: [id number] JOB#: [id number] ACCT: [id number] cc: >
[2017-11-06] MEDS: PIPERACILLIN SODIUM/TAZOBACTAM 3.375 GM in NORMAL SALINE 100 ML IV SCH ×4 (01:01→17:14)
[2017-11-06] MEDS: ENALAPRILAT DIHYDRATE INJ/PF 2.5 MG/2 ML SDV IV SCH ×4 (01:01→17:14)
[2017-11-06] MEDS: METHYLPREDNISOLONE INJ 40 MG/1 ML SDV IV SCH ×3 (03:03→17:14)
[2017-11-06] MEDS: LACTULOSE SYRUP 20 GM/30 ML UDCUP PO SCH ×3 (03:03→17:15)
[2017-11-06] MEDS: POTASSI CL 20 MEQ/D5-1/2NS 1L 1,000 ML IV PRN (09:00)
[2017-11-06] MEDS: ENOXAPARIN SODIUM INJ 60 MG/0.6 ML DISP.SYRIN SUBCUT SCH ×2 (09:01→21:32)
[2017-11-06] MEDS: VANCOMYCIN HCL 500 MG in DEXTROSE 5%-WATER 100 ML IV SCH (09:02)
[2017-11-06 10:26] LABS: VANCOMYCIN,TROUGH 5.9 ug/mL (5.0-20.0)
--- NOTE | 2017-11-06 13:22 | PDOC PROGRESS REPORT ---
Subjective Progress Note for:: 11/06/17 Subjective:: Patient was admitted with a change in mental status and was also found to be in A. fib with RVR. He is living but really arousable. Does sound a little crackly. He is in sinus rhythm off Cardizem drip and has remained hemodynamically stable. Reason For Visit: UNRESPONSIVENESS, DEHYDRATION, ROGER, LEUKOCYTOSIS Physical Exam Vital Signs: Temp Pulse Resp BP Pulse Ox 98.1 F 72 16 119/89 H 97 11/06/17 13:00 11/06/17 08:00 11/06/17 13:00 11/06/17 12:52 11/06/17 13:00 Intake & Output 11/05/17 11/06/17 11/07/17 06:59 06:59 06:59 Intake Total 2720 1469 0 Output Total 1220 1920 350 Balance 1500 -451 -350 Weight 54.9 kg 54 kg General appearance: PRESENT: no acute distress, well-developed Head exam: PRESENT: atraumatic, normocephalic Neck exam: ABSENT: carotid bruit, JVD, lymphadenopathy, thyromegaly Respiratory exam: PRESENT: crackles, decreased breath sounds, rhonchi, unlabored GI/Abdominal exam: PRESENT: normal bowel sounds, soft. ABSENT: distended, guarding, mass, organolmegaly, rebound, tenderness Rectal exam: PRESENT: deferred Neurological exam: PRESENT: alert, awake. ABSENT: oriented to person, oriented to place, oriented to situation Results Laboratory Results: 11/05/17 03:38 11/06/17 09:50 11/06/17 09:50 Creatinine 0.86 Est GFR ( Amer) > 60 Est GFR (Non-Af Amer) > 60 11/02/17 17:00 Cerebral Spinal Fluid - Tube 3 (Csf) Gram Stain - Final 11/02/17 17:00 Cerebral Spinal Fluid - Tube 3 (Csf) CSF Culture - Final NO GROWTH 3 DAYS 11/02/17 11/02/17 11/03/17 20:36 20:36 02:53 Creatine Kinase 4120 H Cancelled CK-MB (CK-2) 3.75 Troponin I 0.016 11/03/17 11/03/17 11/03/17 02:53 03:36 03:36 Creatine Kinase Cancelled CK-MB (CK-2) Cancelled Cancelled Troponin I Cancelled Cancelled 11/03/17 11/03/17 11/03/17 03:36 05:20 05:20 Creatine Kinase Cancelled 2496 H CK-MB (CK-2) 2.77 Troponin I < 0.012 11/03/17 11/03/17 08:46 08:46 Creatine Kinase 2353 H CK-MB (CK-2) 2.64 Troponin I < 0.012 Impressions: Chest X-Ray 11/02/17 14:29 IMPRESSION: Minimal left basilar densities as noted above which could represent atelectatic changes or minimal basilar infiltrate. Remaining lung cooney are clear. Other findings as noted above Chest/Abdomen CTA 11/03/17 00:00 IMPRESSION: No CT angio evidence of acute pulmonary emboli. Dense consolidation in the left posterior lung base worrisome for pneumonia. 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 No abnormal masses or enhancement in the brain parenchyma. No definite acute changes EVIDENCE OF ACUTE STROKE: NO. Assessment & Plan - Time Time Spent with patient: 15-24 minutes Medications reviewed and adjusted accordingly: Yes Anticipated discharge: SNF Within: within 72 hours - Inpatient Certification Based on my medical assessment, after consideration of the patient's comorbidities, presenting symptoms, or acuity I expect that the services needed warrant INPATIENT care.: Yes Medical Necessity: Need For Continuous Telemetry Monitoring, Need for IV Antibiotics - Plan Summary Plan Summary: Aspiration pneumonia he is still currently n.p.o. until seen by speech therapy. We will continue Unasyn and adjust as needed. 2. Sepsis apparently responding well to current antibiotic therapy. 3. Acute kidney injury likely secondary to his acute infection resolved 4. Rhabdomyolysis improved 5. Atrial flutter with rapid ventricular response currently in sinus rhythm amount of Cardizem drip 6. Metabolic encephalopathy
[2017-11-06] MEDS: HYDRALAZINE HCL INJ/PF 20 MG/1 ML SDV IV PRN (16:30)
[2017-11-06] MEDS ORDERED: METOPROLOL TARTRATE PF/INJ 5 MG/5 ML SDV IV SCH (21:15)
[2017-11-06] MEDS: THIAMINE HCL 100 MG, FOLIC ACID 1 MG in NORMAL SALINE 250 ML IV SCH (21:16)
[2017-11-06] MEDS: VANCOMYCIN HCL 1,000 MG in DEXTROSE 5%-WATER 250 ML IV SCH (21:17)
[2017-11-06] MEDS ORDERED: METOPROLOL TARTRATE PF/INJ 5 MG/5 ML SDV IV ONE (21:30)
[2017-11-06] MEDS ORDERED: VANCOMYCIN HCL 500 MG in NORMAL SALINE 100 ML IV SCH (22:00)
--- NOTE | 2017-11-06 22:00 | PROGRESS NOTE E ---
Progress Note NAME: TREY DAWSON : 1950 AGE: 67Y DATE: 11/06/2017 ROOM: 601 SUBJECTIVE: The patient appears to be asleep now, but the nurse state that when he wakes up he does answer appropriately. The patient remains in sinus rhythm with no recurrence of atrial flutter. Note that the patient's beta anahi has been stopped. His blood pressure is much better controlled with the current medical regimen of intravenous hydralazine and intravenous Vasotec. The patient is still not able to swallow and is suspected of aspiration pneumonia and is having a swallowing test tomorrow after which it will be decided whether the patient can be taken off n.p.o. or patient needs further corrective measures if he does indeed chronic aspiration. OBJECTIVE: GENERAL: On examination the patient appears to be chronically ill and appears older than his stated age. VITAL SIGNS: He is afebrile with a temperature of 97.7 degrees Fahrenheit, pulse is 93 beats per minute, blood pressure is 123/57, respirations are 18 per minute, O2 saturations are 98% on 2 liters nasal cannula. HEENT: Head is atraumatic, normocephalic. Eyes: Pupils are equal, round and regular, reactive to light. ENT is negative. NECK: Supple. There is no JVD. There is no lymphadenopathy. There is no goiter. Carotids are equal. There is no bruit. LUNGS: Show diminished air entry, prolonged expiration without any rhonchi, rales, or wheezing. HEART: S1, S2 is heard. There is no S3 gallop. There is no S4 gallop. There is a systolic murmur in the left sternal border and the apex. There is no rub. ABDOMEN: Soft, nontender. There is no hepatosplenomegaly. Bowel sounds are well heard. EXTREMITIES: Femorals are diminished. There are no femoral bruits. Leg pulses are diminished. There is no pedal edema. There is no cyanosis or clubbing. CENTRAL NERVOUS SYSTEM: The patient is very drowsy and asleep. The patient does move all 4 extremities. PSYCHIATRIC: Not assessed since the patient will not cooperate at present. LABORATORY DATA: The patient's creatinine is 0.8, EGFR is greater than 60. His blood sugar last night was 122 and this afternoon was 120. IMPRESSION: 1. PAROXYSMAL ATRIAL FLUTTER. The patient's metoprolol will be restarted by me at 2.5 mg IV q.6 hours to control the patient from going back into atrial flutter. The patient is also on Lovenox 55 mg subcutaneously q.12 hours. 2. HYPERTENSION. Much better controlled. 3. COPD. At present seems to be stable. 4. ASPIRATION PNEUMONIA. 5. HISTORY OF TOBACCO ABUSE. 6. UNRESPONSIVENESS. 7. CARDIOMYOPATHY WITH LV EJECTION FRACTION 40-45%. RECOMMENDATIONS: Continue the patient on Lovenox 55 mg subcutaneously q.12 hours. Restart the patient's metoprolol at a lower dose of 2.5 mg IV push q.6 hours, would hold if the heart rate should go below 60 or if the blood pressure goes below 1.04. Continue the patient's IV hydralazine and IV Vasotec. The patient will have a swallow test tomorrow and that will decide whether the patient will be started on p.o. medication. Continue on IV fluids for now. We will follow with you. Note medications have been reviewed, medications have been added. TIME SPENT: Note 40 minutes spent on this patient with more than 50% of the time spent on direct patient care. Also discussed with the other caregiving providers on the case. Will follow with you. DICTATING PHYSICIAN: BRIAN BRYANT M.D. [id number] AUDELIA#: [id number] ID: [id number] JOB#: [id number] ACCT: [id number] cc: >
[2017-11-07] MEDS: PIPERACILLIN SODIUM/TAZOBACTAM 3.375 GM in NORMAL SALINE 100 ML IV SCH ×4 (00:09→17:27)
[2017-11-07] MEDS: ENALAPRILAT DIHYDRATE INJ/PF 2.5 MG/2 ML SDV IV SCH ×4 (00:11→17:31)
[2017-11-07] MEDS: METHYLPREDNISOLONE INJ 40 MG/1 ML SDV IV SCH ×3 (02:59→17:31)
[2017-11-07] MEDS ORDERED: METOPROLOL TARTRATE PF/INJ 5 MG/5 ML SDV IV SCH (03:00)
[2017-11-07] MEDS: LACTULOSE SYRUP 20 GM/30 ML UDCUP PO SCH ×3 (03:11→17:16)
[2017-11-07] MEDS: LORAZEPAM INJ 2 MG/1 ML VIAL IV PRN (03:11)
--- NOTE | 2017-11-07 03:55 | PROGRESS NOTE E ---
Progress Note NAME: TREY DAWSON : 1950 AGE: 67Y DATE: 11/04/2017 ROOM: 601 Note: Date of progress note is 11/04/2017. The prior dictation did not go through and it is redictated. SUBJECTIVE: The patient remains in ICU. He remains in sinus rhythm. There is no recurrence of atrial fibrillation. The patient does have some APCs occurring. He is unresponsive, but when shaken he wakes up, but goes back to sleep and hence, no history can be obtained from the patient. There are no ventricular arrhythmias seen of significance. There is no recurrence of atrial flutter. OBJECTIVE: GENERAL: The patient appears to be chronically ill and appears older than his stated age. VITAL SIGNS: He is afebrile. His temperature is 97.7 degrees Fahrenheit. Pulse is 78 beats per minute, sinus rhythm with APCs. Blood pressure is 162/93. Respirations are 15 per minute. O2 sat is 100% on 2 L nasal cannula. HEENT: Head is atraumatic, normocephalic. Eyes: Pupils are equal, round, regular, reactive to light. ENT is negative. NECK: Supple. There is no JVD. Carotids are equal. There is no bruit. There is no goiter. There is no lymphadenopathy. LUNGS: Have diminished air entry, prolonged expiration, without any rhonchi or wheezing. There are a few dry crackles in the right base. HEART: S1 and S2 are heard. There is no S3 gallop. There is no S4 gallop. S1 is of normal intensity. There is a systolic murmur at the left sternal border in the apex. There is no rub. ABDOMEN: Soft, nontender. There is no hepatosplenomegaly. Bowel sounds are well heard. EXTREMITIES: Femorals are diminished. There are no femoral bruits. Leg pulses are diminished. There is no pedal edema. There is no cyanosis or clubbing. CENTRAL NERVOUS SYSTEM: The patient does not respond, although he does open his eyes when shaken and called by his name. He does move all 4 extremities. PSYCHIATRIC: Not examined. DIAGNOSTIC STUDIES: The patient's EKG shows sinus rhythm with frequent APCs, right bundle branch block pattern, and left ventricular hypertrophy. His repeat EKG shows sinus rhythm, atrial premature complex, right bundle branch block pattern, and LVH. The patient's white count is 10,700. Hemoglobin is 12.6. Hematocrit is 38.3. Platelet count is 237,000. The patient's sodium is 144.1, potassium 4.1, chloride 108, CO2 is 22. The patient's BUN is 14, creatinine is 0.73. GFR is greater than 60. His glucose is 144. His liver function tests were normal except for slight increase in direct bilirubin of 0.5. His albumin is low at 3.2 and his total protein is 6.8. IMPRESSION: 1. PAROXYSMAL ATRIAL FLUTTER. The patient does have PACs. We will start the patient on Cardizem 2.5 mg/h to keep the patient from going back into atrial flutter. 2. HYPERTENSION, WELL CONTROLLED. Continue the patient on hydralazine p.r.n. Continue the patient's Cardizem drip. 3. COPD. At present, seems stable. 4. POSSIBLE ASPIRATION PNEUMONIA. 5. ACUTE RENAL INSUFFICIENCY. Now renal function back to normal. 6. HISTORY OF TOBACCO ABUSE. 7. UNRESPONSIVENESS, ? ETIOLOGY. 8. CARDIOMYOPATHY. The patient's LV ejection fraction is 40-45%. RECOMMENDATIONS: 1. Continue the Lovenox at 55 mg subcutaneously q.12 hours. 2. Start the patient on a Cardizem drip. 3. Continue antibiotics. 4. Continue IV hydration. Note: Medications have been reviewed. Medications have been added. Medical decision making is of moderate to high complexity. TIME SPENT: Forty minutes was spent on the patient, more than 50% of the time spent on direct patient care. Note that the patient is a full code. Surrogate healthcare decision maker is unchanged. Will follow. Discussed with the hospitalist taking care of the patient. Thanking you. DICTATING PHYSICIAN: BRIAN BRYANT M.D. [id number] PHY#: [id number] ID: [id number] JOB#: [id number] ACCT: [id number] cc: >
[2017-11-07] MEDS: VANCOMYCIN HCL 1,000 MG in DEXTROSE 5%-WATER 250 ML IV SCH ×2 (07:37→18:21)
[2017-11-07] MEDS ORDERED: ESMOLOL 2500 MG/NS 250 ML IV PRN (10:11)
[2017-11-07] MEDS: ENOXAPARIN SODIUM INJ 60 MG/0.6 ML DISP.SYRIN SUBCUT SCH ×2 (10:13→22:11)
--- NOTE | 2017-11-07 14:19 | PDOC PROGRESS REPORT ---
Subjective Progress Note for:: 11/07/17 Subjective:: Patient was admitted with a change in mental status and was also found to be in A. fib with RVR. He had been stable and I plan to transfer him out of the unit however I was noted to have episodes of bradycardia. It appears he was asymptomatic. Dr. Grover was contacted and he has started the patient on esmolol drip. Patient also had a swallowing evaluation done today and this apparently was not successful. We will keep him n.p.o. for now. Patient has been changed back to ICU Reason For Visit: UNRESPONSIVENESS, DEHYDRATION, ROGER, LEUKOCYTOSIS Physical Exam Vital Signs: Temp Pulse Resp BP Pulse Ox 97.7 F 55 L 15 143/67 H 98 11/07/17 13:36 11/07/17 07:52 11/07/17 13:36 11/07/17 13:36 11/07/17 13:36 Intake & Output 11/06/17 11/07/17 11/08/17 06:59 06:59 06:59 Intake Total 1469 1665 Output Total 1920 1400 275 Balance -451 265 -275 Weight 54 kg 55.2 kg General appearance: PRESENT: no acute distress, other - Chronically ill looking Head exam: PRESENT: atraumatic Mouth exam: PRESENT: dry mucosa Neck exam: ABSENT: carotid bruit, JVD, lymphadenopathy, thyromegaly Respiratory exam: PRESENT: crackles, rhonchi, unlabored. ABSENT: tachypnea, wheezes Cardiovascular exam: PRESENT: irregular rhythm, +S1, +S2 GI/Abdominal exam: PRESENT: normal bowel sounds, soft. ABSENT: distended, guarding, mass, organolmegaly, rebound, tenderness Rectal exam: PRESENT: deferred Musculoskeletal exam: PRESENT: normal inspection Neurological exam: PRESENT: other - arousable Psychiatric exam: PRESENT: other - cooperative Results Laboratory Results: 11/05/17 03:38 11/06/17 09:50 11/02/17 11/02/17 11/03/17 20:36 20:36 02:53 Creatine Kinase 4120 H Cancelled CK-MB (CK-2) 3.75 Troponin I 0.016 11/03/17 11/03/17 11/03/17 02:53 03:36 03:36 Creatine Kinase Cancelled CK-MB (CK-2) Cancelled Cancelled Troponin I Cancelled Cancelled 11/03/17 11/03/17 11/03/17 03:36 05:20 05:20 Creatine Kinase Cancelled 2496 H CK-MB (CK-2) 2.77 Troponin I < 0.012 11/03/17 11/03/17 08:46 08:46 Creatine Kinase 2353 H CK-MB (CK-2) 2.64 Troponin I < 0.012 Impressions: Chest X-Ray 11/02/17 14:29 IMPRESSION: Minimal left basilar densities as noted above which could represent atelectatic changes or minimal basilar infiltrate. Remaining lung cooney are clear. Other findings as noted above Chest/Abdomen CTA 11/03/17 00:00 IMPRESSION: No CT angio evidence of acute pulmonary emboli. Dense consolidation in the left posterior lung base worrisome for pneumonia. 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 No abnormal masses or enhancement in the brain parenchyma. No definite acute changes EVIDENCE OF ACUTE STROKE: NO. Assessment & Plan - Time Time Spent with patient: 25-34 minutes Medications reviewed and adjusted accordingly: Yes Anticipated discharge: SNF Within: within 72 hours - Inpatient Certification Based on my medical assessment, after consideration of the patient's comorbidities, presenting symptoms, or acuity I expect that the services needed warrant INPATIENT care.: Yes Medical Necessity: Significant Comorbidiites Make Outpatient Treatment Too Risky , Need For Continuous Telemetry Monitoring - Plan Summary Plan Summary: 1. Aspiration pneumonia he remains n.p.o. as he failed his swallow eval. Continue Unasyn 2. Sepsis apparently responding well to current antibiotic therapy. 3. Acute kidney injury likely secondary to his acute infection resolved 4. Rhabdomyolysis improved 5. Atrial flutter with rapid ventricular response - controlled however with intermittent bradycardia. Started on Esmolol 6. Metabolic encephalopathy- ?baseline 7. Prognosis poor. 8. May need to start feeding by alternative means if still unable to swallow on reevaluation
[2017-11-07 14:45] LABS: ALANINE AMINOTRANSFERASE 27 U/L (21-72); ALKALINE PHOSPHATASE 54 U/L (38-126); ANION GAP 8 (5-19); ASPARTATE AMINO TRANSFERASE 27 U/L (17-59); BILIRUBIN,DIRECT 0.5 mg/dL (0.0-0.4); BILIRUBIN,TOTAL 0.9 mg/dL (0.2-1.3); BLOOD UREA NITROGEN 18 mg/dL (7-20); CALCIUM 8.7 mg/dL (8.4-10.2); CARBON DIOXIDE 29 mmol/L (22-30); CHLORIDE 102 mmol/L (98-107); GLUCOSE 127 mg/dL (75-110); POTASSIUM 3.6 mmol/L (3.6-5.0); SODIUM 138.7 mmol/L (137-145); TOTAL PROTEIN 6.7 g/dL (6.3-8.2)
[2017-11-07] MEDS: POTASSI CL 20 MEQ/D5-1/2NS 1L 1,000 ML IV PRN (18:21)
[2017-11-07] MEDS: THIAMINE HCL 100 MG, FOLIC ACID 1 MG in NORMAL SALINE 250 ML IV SCH (20:07)
[2017-11-08] MEDS: PIPERACILLIN SODIUM/TAZOBACTAM 3.375 GM in NORMAL SALINE 100 ML IV SCH ×5 (00:01→23:36)
[2017-11-08] MEDS: ENALAPRILAT DIHYDRATE INJ/PF 2.5 MG/2 ML SDV IV SCH ×5 (00:01→23:35)
[2017-11-08] MEDS: LACTULOSE SYRUP 20 GM/30 ML UDCUP PO SCH ×3 (02:01→17:20)
[2017-11-08] MEDS: METHYLPREDNISOLONE INJ 40 MG/1 ML SDV IV SCH ×3 (02:01→21:38)
--- NOTE | 2017-11-08 05:05 | PROGRESS NOTE E ---
Progress Note NAME: TREY DAWSON : 1950 AGE: 67Y DATE: 11/07/2017 ROOM: 601 SUBJECTIVE: Of note, the patient's status is still not responsive, but he moves all 4 extremities. The patient's heart rate goes down to the 30s and also, goes up to the 80s, especially when the patient received Lopressor 5 mg every 6 hours and hence, we will change it to beta anahi. The patient is supposed to have a sleep study. There are occasional PVCs, but no major ventricular arrhythmia. There is no recurrence of atrial fibrillation. OBJECTIVE: GENERAL: On examination the patient appears to be chronically ill and appears older than his stated age. VITAL SIGNS: He is afebrile with a temperature of 97.2 degrees Fahrenheit, pulse is 86 beats per minute, blood pressure is 160/86, respirations are 13 per minute, O2 sats are 99% on 2 liters nasal cannula. HEENT: Head is atraumatic, normocephalic. Eyes: Pupils are equal, round and regular, reactive to light. ENT is negative. NECK: Supple. There is no JVD. There is no lymphadenopathy. There is no goiter. Carotids are equal. There is no bruit. LUNGS: Show diminished air entry, prolonged expiration without any rhonchi, rales, or wheezing. HEART: S1, S2 is heard. There is no S3 gallop. There is no S4 gallop. There is a systolic murmur in the left sternal border and the apex. There is no rub. ABDOMEN: Soft, nontender. There is no hepatosplenomegaly. Bowel sounds are well heard. EXTREMITIES: Femorals are diminished. There are no femoral bruits. Leg pulses are diminished. There is no pedal edema. There is no cyanosis or clubbing. CENTRAL NERVOUS SYSTEM: The patient does not respond, but opens his eyes every now and then. He tries to pick objects out of the air, but he does move all 4 extremities. PSYCHIATRIC: Not tested. LABORATORY DATA: Sodium 138, potassium 3.6, chloride 102, CO2 29, BUN 18, creatinine 0.87, GFR greater than 60, glucose 127, and calcium 8.7. Liver function tests were normal except for mildly elevated direct bilirubin of 0.5. IMPRESSION: 1. PAROXYSMAL ATRIAL FLUTTER. No recurrence. In view of the patient's wide fluctuations of heart rate, the patient is receiving Lopressor 5 mg IV push q.6 hours. We will stop the Lopressor and start the patient on a beta anahi infusion to keep a steady heart rate level. Parameters given for the patient to hold if heart rate below 60 or blood pressure below 110. 2. HYPERTENSION. Still needs better control of his blood pressure. 3. CHRONIC OBSTRUCTIVE PULMONARY DISEASE. 4. ASPIRATION PNEUMONIA. 5. HISTORY OF TOBACCO ABUSE. 6. UNRESPONSIVENESS. 7. CARDIOMYOPATHY WITH LEFT VENTRICULAR EJECTION FRACTION 40-45%. RECOMMENDATIONS: Note, 40 minutes spent with this patient with more than 50% spent on direct patient care. Medical decision-making is of moderate to high complexity. His medications have been reviewed. New medications have been added. Other medications will be discontinued. The patient has been discussed with the hospitalist. The patient's prognosis is very guarded. We will follow with you. Thanking you. DICTATING PHYSICIAN: BRIAN BRYANT M.D. [id number] AUDELIA#: [id number] ID: [id number] JOB#: [id number] ACCT: [id number] cc: >
[2017-11-08 07:00] LABS: ANION GAP 5 (5-19); BLOOD UREA NITROGEN 16 mg/dL (7-20); CALCIUM 8.5 mg/dL (8.4-10.2); CARBON DIOXIDE 29 mmol/L (22-30); CHLORIDE 103 mmol/L (98-107); GLUCOSE 120 mg/dL (75-110); POTASSIUM 3.6 mmol/L (3.6-5.0); SODIUM 136.9 mmol/L (137-145)
[2017-11-08 07:04] LABS: VANCOMYCIN,TROUGH 12.8 ug/mL (5.0-20.0)
[2017-11-08] MEDS: VANCOMYCIN HCL 1,000 MG in DEXTROSE 5%-WATER 250 ML IV SCH (07:41)
[2017-11-08 10:09] LABS: ABSOLUTE LYMPHOCYTES (AUTO) 0.8 10^3/uL (0.5-4.7); ABSOLUTE MONOCYTES (AUTO) 0.4 10^3/uL (0.1-1.4); ABSOLUTE NEUT (AUTO) 10.6 10^3/uL (1.7-8.2); BASOPHILS % (AUTO) 0.2 % (0-2); HEMATOCRIT 35.4 % (37.9-51.0); HEMOGLOBIN 11.5 g/dL (13.5-17.0); LYMPHOCYTES % (AUTO) 6.8 % (13-45); MEAN CORPUSCULAR HEMOGLOBIN 27.2 pg (27.0-33.4); MEAN CORPUSCULAR HGB CONC 32.6 g/dL (32.0-36.0); MEAN CORPUSCULAR VOLUME 83 fl (80-97); MONOCYTES % (AUTO) 3.4 % (3-13); PLATELET COUNT 227 10^3/uL (150-450); RED BLOOD COUNT 4.24 10^6/uL (4.35-5.55); RED CELL DISTRIBUTION WIDTH 12.9 % (11.5-14.0); SEGMENTED NEUTROPHILS % (AUTO) 89.6 % (42-78); TOTAL CELLS COUNTED % (AUTO) 100 %; WHITE BLOOD COUNT 11.8 10^3/uL (4.0-10.5)
[2017-11-08] MEDS: ENOXAPARIN SODIUM INJ 60 MG/0.6 ML DISP.SYRIN SUBCUT SCH ×2 (10:37→21:39)
--- NOTE | 2017-11-08 17:22 | PDOC PROGRESS REPORT ---
Subjective Progress Note for:: 11/08/17 Subjective:: Patient was admitted with a change in mental status and was also found to be in A. fib with RVR. Off esmolol drip, still NPO Reason For Visit: UNRESPONSIVENESS, DEHYDRATION, ROGER, LEUKOCYTOSIS Physical Exam Vital Signs: Temp Pulse Resp BP Pulse Ox 97.9 F 58 L 16 140/74 H 96 11/08/17 16:08 11/08/17 08:00 11/08/17 16:08 11/08/17 16:08 11/08/17 16:08 Intake & Output 11/07/17 11/08/17 11/09/17 06:59 06:59 06:59 Intake Total 1665 2454 Output Total 1400 1435 595 Balance 265 1019 -595 Weight 53.6 kg General appearance: PRESENT: no acute distress. ABSENT: well-nourished Head exam: PRESENT: atraumatic Eye exam: PRESENT: EOMI, PERRLA. ABSENT: scleral icterus Mouth exam: PRESENT: dry mucosa Respiratory exam: PRESENT: crackles, rhonchi, unlabored GI/Abdominal exam: PRESENT: normal bowel sounds, soft. ABSENT: distended, guarding, mass, organolmegaly, rebound, tenderness Rectal exam: PRESENT: deferred Neurological exam: PRESENT: altered, other - gurgly sounds. ABSENT: oriented to person, oriented to place, oriented to time Results Laboratory Results: 11/08/17 06:39 11/08/17 06:39 11/08/17 11/08/17 06:39 06:39 WBC 11.8 H RBC 4.24 L Hgb 11.5 L Hct 35.4 L MCV 83 MCH 27.2 MCHC 32.6 RDW 12.9 Plt Count 227 Seg Neutrophils % 89.6 H Lymphocytes % 6.8 L Monocytes % 3.4 Eosinophils % 0.0 Basophils % 0.2 Absolute Neutrophils 10.6 H Absolute Lymphocytes 0.8 Absolute Monocytes 0.4 Absolute Eosinophils 0.0 Absolute Basophils 0.0 Sodium 136.9 L Potassium 3.6 Chloride 103 Carbon Dioxide 29 Anion Gap 5 BUN 16 Creatinine 0.81 Est GFR ( Amer) > 60 Est GFR (Non-Af Amer) > 60 Glucose 120 H Calcium 8.5 11/02/17 16:35 Blood Blood Culture - Final NO GROWTH IN 5 DAYS 11/02/17 16:34 Blood Blood Culture - Final NO GROWTH IN 5 DAYS 11/02/17 11/02/17 11/03/17 20:36 20:36 02:53 Creatine Kinase 4120 H Cancelled CK-MB (CK-2) 3.75 Troponin I 0.016 11/03/17 11/03/17 11/03/17 02:53 03:36 03:36 Creatine Kinase Cancelled CK-MB (CK-2) Cancelled Cancelled Troponin I Cancelled Cancelled 11/03/17 11/03/17 11/03/17 03:36 05:20 05:20 Creatine Kinase Cancelled 2496 H CK-MB (CK-2) 2.77 Troponin I < 0.012 11/03/17 11/03/17 08:46 08:46 Creatine Kinase 2353 H CK-MB (CK-2) 2.64 Troponin I < 0.012 Impressions: Chest X-Ray 11/02/17 14:29 IMPRESSION: Minimal left basilar densities as noted above which could represent atelectatic changes or minimal basilar infiltrate. Remaining lung cooney are clear. Other findings as noted above Chest/Abdomen CTA 11/03/17 00:00 IMPRESSION: No CT angio evidence of acute pulmonary emboli. Dense consolidation in the left posterior lung base worrisome for pneumonia. 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 No abnormal masses or enhancement in the brain parenchyma. No definite acute changes EVIDENCE OF ACUTE STROKE: NO. Assessment & Plan - Time Time Spent with patient: 15-24 minutes Medications reviewed and adjusted accordingly: Yes Anticipated discharge: Acute Rehab - Inpatient Certification Based on my medical assessment, after consideration of the patient's comorbidities, presenting symptoms, or acuity I expect that the services needed warrant INPATIENT care.: Yes Medical Necessity: Need for IV Antibiotics - Plan Summary Plan Summary: 1. Aspiration pneumonia he remains n.p.o. as he failed his swallow eval. Continue Zosyn. Plan to repeat swallowing eval Will discuss with Mary [phone] as to what the next steps should be. 2. Sepsis apparently responding well to current antibiotic therapy. 3. Acute kidney injury likely secondary to his acute infection resolved 4. Rhabdomyolysis improved 5. Atrial flutter with rapid ventricular response - controlled however with intermittent bradycardia. Started on Esmolol 6. Metabolic encephalopathy- ?baseline 7. Prognosis poor.
[2017-11-08] MEDS: POTASSI CL 20 MEQ/D5-1/2NS 1L 1,000 ML IV PRN (20:24)
[2017-11-08] MEDS: THIAMINE HCL 100 MG, FOLIC ACID 1 MG in NORMAL SALINE 250 ML IV SCH (20:24)
--- NOTE | 2017-11-08 23:15 | PROGRESS NOTE E ---
Progress Note NAME: TREY DAWSON : 1950 AGE: 67Y DATE: 11/08/2017 ROOM: 601 SUBJECTIVE: The patient is status quo; still not responsive, but moves all 4 extremities. His beta anahi to be stopped because of bradycardia. His blood pressure still is slightly not well-controlled. There is no recurrence of atrial fibrillation. The patient has APCs and PVCs. OBJECTIVE: GENERAL: On examination, the patient appears to be chronically ill and appears older than his stated age. VITAL SIGNS: He is afebrile, with temperature of 97.3 degrees Fahrenheit, pulse rate 75 beats per minute, blood pressure 136/71, respirations of 14 per minute, O2 sats are 99% on 2 liters nasal cannula. HEENT: Head is atraumatic, normocephalic. Eyes: Pupils are equal, round, regular, reactive to light and accommodation. Extraocular movements are normal. There is no conjunctival pallor. ENT is negative. NECK: Supple. There is no JVD. There is no lymphadenopathy. There is no goiter. Carotids are equal. There is no bruit. Trachea is central. LUNGS: With diminished air entry, prolonged expiration, without any rhonchi, rales or wheezing. There is hyperresonance. CARDIAC: S1, S2 are heard. There is no S3 gallop. There is no S4 gallop. S1 is of normal intensity. There is a systolic murmur in the left sternal border, at the apex. There is no rub. ABDOMEN: Soft, nontender. There is no hepatosplenomegaly. Bowel sounds are well-heard. EXTREMITIES: Femorals are diminished. There are no femoral bruits. Leg pulses are diminished. There is no pedal edema. There is no cyanosis or clubbing. 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 Opens his eyes when called, but does not answer appropriately. He moves all 4 extremities. PSYCHIATRIC: Not tested, but the patient does not appear to be agitated. DIAGNOSTICS: The patient's white count is 11,800, hemoglobin is 11.5, hematocrit is 35.4, platelet count is 227,000. The patient's sodium is 136.9, potassium 3.6, chloride 103, CO2 is 29. The patient's BUN is 16, creatinine is 0.81. GFR is greater than 16. Glucose is 120. Calcium is 8.5. IMPRESSION: 1. PAROXYSMAL ATRIAL FLUTTER, NO RECURRENCE. At present, beta anahi had to be stopped because of the patient's bradycardia. 2. HYPERTENSION. Still needs better control of his blood pressure since some blood pressure spikes. 3. COPD. 4. ASPIRATION PNEUMONIA. 5. HISTORY OF TOBACCO ABUSE. 6. UNRESPONSIVENESS. 7. CARDIOMYOPATHY. Left ventricular ejection fraction of 42%-43%. RECOMMENDATIONS: Note, will observe the patient's heart rate. At present, due to bradycardia, will not reinstitute beta anahi or any *------* or AV vega blocking agents. Continue hydralazine IV and Vasotec IV. Note, a decision has to be made with the family as to whether the patient and the patient's family will be acceptable to have a PEG tube placed, since the patient at present is not able to swallow, and they could not do a swallow test in full. Note, medications have been reviewed. Thirty-five minutes spent on this patient, with more than 50% of the time spent in direct patient care. Medical decision-making is still moderate to high complexity. Note, the patient is a FULL CODE. His is his surrogate healthcare decision-maker. The attending physician will talk to the patient's and then make a decision as to what the next management plans are. Thank you. DICTATING PHYSICIAN: BRIAN BRYANT M.D. [id number] AUDELIA#: [id number] ID: [id number] JOB#: [id number] ACCT: [id number] cc: >
[2017-11-09] MEDS: LACTULOSE SYRUP 20 GM/30 ML UDCUP PO SCH ×3 (01:51→18:47)
[2017-11-09 04:14] LABS: ABSOLUTE LYMPHOCYTES (AUTO) 0.7 10^3/uL (0.5-4.7); ABSOLUTE MONOCYTES (AUTO) 0.3 10^3/uL (0.1-1.4); ABSOLUTE NEUT (AUTO) 7.7 10^3/uL (1.7-8.2); BASOPHILS % (AUTO) 0.2 % (0-2); HEMATOCRIT 36.3 % (37.9-51.0); HEMOGLOBIN 12.1 g/dL (13.5-17.0); LYMPHOCYTES % (AUTO) 7.6 % (13-45); MEAN CORPUSCULAR HEMOGLOBIN 27.2 pg (27.0-33.4); MEAN CORPUSCULAR HGB CONC 33.4 g/dL (32.0-36.0); MEAN CORPUSCULAR VOLUME 82 fl (80-97); MONOCYTES % (AUTO) 3.6 % (3-13); PLATELET COUNT 219 10^3/uL (150-450); RED BLOOD COUNT 4.45 10^6/uL (4.35-5.55); RED CELL DISTRIBUTION WIDTH 12.9 % (11.5-14.0); SEGMENTED NEUTROPHILS % (AUTO) 88.6 % (42-78); TOTAL CELLS COUNTED % (AUTO) 100 %; WHITE BLOOD COUNT 8.7 10^3/uL (4.0-10.5)
[2017-11-09 04:29] LABS: ANION GAP 7 (5-19); BLOOD UREA NITROGEN 14 mg/dL (7-20); CALCIUM 8.5 mg/dL (8.4-10.2); CARBON DIOXIDE 28 mmol/L (22-30); CHLORIDE 101 mmol/L (98-107); GLUCOSE 121 mg/dL (75-110); POTASSIUM 3.7 mmol/L (3.6-5.0); SODIUM 135.5 mmol/L (137-145)
[2017-11-09] MEDS: PIPERACILLIN SODIUM/TAZOBACTAM 3.375 GM in NORMAL SALINE 100 ML IV SCH ×4 (05:05→23:54)
[2017-11-09] MEDS: ENALAPRILAT DIHYDRATE INJ/PF 2.5 MG/2 ML SDV IV SCH ×4 (05:06→23:55)
[2017-11-09] MEDS: POTASSI CL 20 MEQ/D5-1/2NS 1L 1,000 ML IV PRN (13:24)
[2017-11-09] MEDS: METHYLPREDNISOLONE INJ 40 MG/1 ML SDV IV SCH ×2 (13:24→21:24)
[2017-11-09] MEDS: ENOXAPARIN SODIUM INJ 60 MG/0.6 ML DISP.SYRIN SUBCUT SCH ×2 (13:26→21:25)
--- NOTE | 2017-11-09 14:46 | PDOC PROGRESS REPORT ---
Subjective Progress Note for:: 11/09/17 Subjective:: Patient was admitted with a change in mental status and was also found to be in A. fib with RVR. Remains off esmolol drip, Had a swallowing evaluation done today and patient is able to resume oral diet. I had an extended conversation with his yesterday and she has made a clear to me that she will be taking patient home and looking after him with the help of family. She has no interest in rehab at this time. Luckily patient seems to have improved and stabilized although still pretty poor long-term prognosis. He is to be moved out of the ICU as he has stabilized. Reason For Visit: UNRESPONSIVENESS, DEHYDRATION, ROGER, LEUKOCYTOSIS Physical Exam Vital Signs: Temp Pulse Resp BP Pulse Ox 97.7 F 77 15 168/103 H 96 11/09/17 12:00 11/09/17 12:00 11/09/17 12:00 11/09/17 12:00 11/09/17 12:00 Intake & Output 11/08/17 11/09/17 11/10/17 06:59 06:59 06:59 Intake Total 2454 1713 200 Output Total 1435 1755 470 Balance 1019 -42 -270 Weight 53.6 kg 55.4 kg General appearance: PRESENT: no acute distress. ABSENT: well-developed, well- nourished Head exam: PRESENT: atraumatic Neck exam: ABSENT: carotid bruit, JVD, lymphadenopathy, thyromegaly Respiratory exam: PRESENT: crackles, rhonchi, unlabored. ABSENT: accessory muscle use, rales Cardiovascular exam: PRESENT: irregular rhythm, +S1, +S2 Pulses: PRESENT: normal dorsalis pedis pul GI/Abdominal exam: PRESENT: normal bowel sounds, soft. ABSENT: distended, guarding, mass, organolmegaly, rebound, tenderness Rectal exam: PRESENT: deferred Extremities exam: PRESENT: full ROM. ABSENT: calf tenderness, clubbing, pedal edema Musculoskeletal exam: ABSENT: ambulatory Neurological exam: PRESENT: alert, awake. ABSENT: oriented to person, oriented to place, oriented to time, oriented to situation Psychiatric exam: PRESENT: appropriate affect Results Laboratory Results: 11/09/17 03:43 11/09/17 03:43 11/09/17 11/09/17 03:43 03:43 WBC 8.7 RBC 4.45 Hgb 12.1 L Hct 36.3 L MCV 82 MCH 27.2 MCHC 33.4 RDW 12.9 Plt Count 219 Seg Neutrophils % 88.6 H Lymphocytes % 7.6 L Monocytes % 3.6 Eosinophils % 0.0 Basophils % 0.2 Absolute Neutrophils 7.7 Absolute Lymphocytes 0.7 Absolute Monocytes 0.3 Absolute Eosinophils 0.0 Absolute Basophils 0.0 Sodium 135.5 L Potassium 3.7 Chloride 101 Carbon Dioxide 28 Anion Gap 7 BUN 14 Creatinine 0.75 Est GFR ( Amer) > 60 Est GFR (Non-Af Amer) > 60 Glucose 121 H Calcium 8.5 11/02/17 11/02/17 11/03/17 20:36 20:36 02:53 Creatine Kinase 4120 H Cancelled CK-MB (CK-2) 3.75 Troponin I 0.016 11/03/17 11/03/17 11/03/17 02:53 03:36 03:36 Creatine Kinase Cancelled CK-MB (CK-2) Cancelled Cancelled Troponin I Cancelled Cancelled 11/03/17 11/03/17 11/03/17 03:36 05:20 05:20 Creatine Kinase Cancelled 2496 H CK-MB (CK-2) 2.77 Troponin I < 0.012 11/03/17 11/03/17 08:46 08:46 Creatine Kinase 2353 H CK-MB (CK-2) 2.64 Troponin I < 0.012 Impressions: Chest X-Ray 11/02/17 14:29 IMPRESSION: Minimal left basilar densities as noted above which could represent atelectatic changes or minimal basilar infiltrate. Remaining lung cooney are clear. Other findings as noted above Chest/Abdomen CTA 11/03/17 00:00 IMPRESSION: No CT angio evidence of acute pulmonary emboli. Dense consolidation in the left posterior lung base worrisome for pneumonia. 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 No abnormal masses or enhancement in the brain parenchyma. No definite acute changes EVIDENCE OF ACUTE STROKE: NO. Assessment & Plan - Time Time Spent with patient: 15-24 minutes Medications reviewed and adjusted accordingly: Yes Anticipated discharge: Home with Homehealth Within: within 72 hours - Inpatient Certification Based on my medical assessment, after consideration of the patient's comorbidities, presenting symptoms, or acuity I expect that the services needed warrant INPATIENT care.: Yes Medical Necessity: Need for IV Antibiotics, Risk of Complication if Not Cared For in Hospital - Plan Summary Plan Summary: 1. Aspiration pneumonia Continue Zosyn. Discuss with Mary [phone] and she wants him back home once discharged 2. Sepsis apparently responding well to current antibiotic therapy. 3. Acute kidney injury likely secondary to his acute infection resolved 4. Rhabdomyolysis improved 5. Atrial flutter with rapid ventricular response - controlled however with intermittent bradycardia. 6. Metabolic encephalopathy- ?baseline 7. Prognosis poor.
[2017-11-09] MEDS: THIAMINE HCL 100 MG, FOLIC ACID 1 MG in NORMAL SALINE 250 ML IV SCH (21:05)
--- NOTE | 2017-11-09 23:05 | PROGRESS NOTE E ---
Progress Note NAME: TREY DAWSON : 1950 AGE: 67Y DATE: 11/09/2017 ROOM: 601 SUBJECTIVE: The patient has awakened. He had a swallow study and was able to resume oral diet. He is bradycardic with no recurrence of atrial fibrillation. Otherwise, the patient is not very communicative. He moves all 4 extremities. There is no ventricular arrhythmia or recurrence of atrial flutter. OBJECTIVE: GENERAL: On examination the patient appears to be chronically ill and appears older than his stated age, and appears to be malnourished. VITAL SIGNS: He is afebrile with a temperature of 97.2 degrees Fahrenheit, his pulse is 54 beats per minute sinus bradycardia, blood pressure is 139/76, respirations are 20 per minute, O2 saturations are 97% on 2 liters nasal cannula. HEENT: Head is atraumatic, normocephalic. Eyes: Pupils are equal, round and regular, reactive to light. ENT is negative. NECK: Supple. There is no JVD. There is no lymphadenopathy. There is no goiter. Carotids are equal. There is no bruit. Trachea is central. LUNGS: Show diminished air entry, prolonged expiration without any rhonchi, rales, or wheezing. HEART: S1, S2 is heard. S1 is of normal intensity. There is no S3 gallop. There is no S4 gallop. There is a systolic murmur in the left sternal border and the apex. There is no rub. ABDOMEN: Soft, nontender. There is no hepatosplenomegaly. Bowel sounds are well heard. EXTREMITIES: Femorals are diminished. There are no femoral bruits. Leg pulses are diminished. There is no pedal edema. There is no cyanosis or clubbing. CENTRAL NERVOUS SYSTEM: The patient does not respond but does keep his eyes open. He did eat well today. He moves all 4 extremities. PSYCHIATRIC: Not tested since the patient will not cooperate. LABORATORY DATA: The patient's white count is 8700, hemoglobin is 12.1, hematocrit is 36.1, platelet count is 219,000. The patient's sodium is 135.5, potassium 3.7, chloride is 101, CO2 is 28. The patient's BUN is 14, creatinine is 0.7, GFR is greater than 60. His glucose is 121 and his calcium is 8.5. IMPRESSION: 1. PAROXYSMAL ATRIAL FLUTTER WITH NO RECURRENCE AT PRESENT. 2. BRADYCARDIA. Note that the patient's beta anahi has been stopped and has not been started. 3. HYPERTENSION. 4. COPD. 5. ASPIRATION PNEUMONIA, WHICH IS IMPROVED. 6. HISTORY OF TOBACCO ABUSE. 7. UNRESPONSIVENESS. 8. CARDIOMYOPATHY WITH LV EJECTION FRACTION MILDLY REDUCED. RECOMMENDATION: *------* the patient's heart rate, will not institute the patient on a beta anahi at present. He is on Lovenox 55 mg subcutaneously q.12 hours. Would recommend transitioning due to adjust to Eliquis after a lengthy discussion with the patient's . Continue his thiamine and IV fluids. Resume his oral diet. Continue his steroids and tape to the mouth. Continue patient on Vasotec and hydralazine. Continue the patient on piperacillin. TIME SPENT: Note his medications have been reviewed. Note 35 minutes spent on this patient with more than 50% of the time spent on direct patient care, discussed with the attending physician on the case. Medical decision making at present is of moderate to high complexity. Will follow with you. DICTATING PHYSICIAN: BRIAN BRYANT M.D. [id number] AUDELIA#: [id number] ID: [id number] JOB#: [id number] ACCT: [id number] cc: >
[2017-11-10] MEDS: LACTULOSE SYRUP 20 GM/30 ML UDCUP PO SCH ×3 (02:39→17:35)
[2017-11-10] MEDS: HYDRALAZINE HCL INJ/PF 20 MG/1 ML SDV IV PRN (04:01)
[2017-11-10 04:33] LABS: ANION GAP 9 (5-19); BLOOD UREA NITROGEN 14 mg/dL (7-20); CALCIUM 8.3 mg/dL (8.4-10.2); CARBON DIOXIDE 29 mmol/L (22-30); CHLORIDE 101 mmol/L (98-107); GLUCOSE 123 mg/dL (75-110); POTASSIUM 3.4 mmol/L (3.6-5.0)
[2017-11-10 04:39] LABS: ABSOLUTE LYMPHOCYTES (AUTO) 0.7 10^3/uL (0.5-4.7); ABSOLUTE MONOCYTES (AUTO) 0.2 10^3/uL (0.1-1.4); ABSOLUTE NEUT (AUTO) 7.1 10^3/uL (1.7-8.2); BASOPHILS % (AUTO) 0.2 % (0-2); EOSINOPHILS % (AUTO) 0.3 % (0-6); HEMATOCRIT 37.8 % (37.9-51.0); HEMOGLOBIN 12.6 g/dL (13.5-17.0); LYMPHOCYTES % (AUTO) 8.7 % (13-45); MEAN CORPUSCULAR HEMOGLOBIN 27.3 pg (27.0-33.4); MEAN CORPUSCULAR HGB CONC 33.5 g/dL (32.0-36.0); MEAN CORPUSCULAR VOLUME 82 fl (80-97); MONOCYTES % (AUTO) 2.8 % (3-13); PLATELET COUNT 233 10^3/uL (150-450); RED BLOOD COUNT 4.63 10^6/uL (4.35-5.55); RED CELL DISTRIBUTION WIDTH 12.8 % (11.5-14.0); TOTAL CELLS COUNTED % (AUTO) 100 %
[2017-11-10] MEDS: PIPERACILLIN SODIUM/TAZOBACTAM 3.375 GM in NORMAL SALINE 100 ML IV SCH (06:04)
[2017-11-10] MEDS: ENALAPRILAT DIHYDRATE INJ/PF 2.5 MG/2 ML SDV IV SCH (06:05)
[2017-11-10] MEDS ORDERED: POTASSIUM CHLORIDE 10 MEQ CAPSULE.ER PO ONE (08:15)
--- NOTE | 2017-11-10 13:43 | PDOC PROGRESS REPORT ---
Subjective Reason For Visit: UNRESPONSIVENESS, DEHYDRATION, ROGER, LEUKOCYTOSIS Physical Exam Vital Signs: Temp Pulse Resp BP Pulse Ox 97.5 F 59 L 18 173/103 H 100 11/10/17 12:00 11/10/17 12:00 11/10/17 12:00 11/10/17 12:00 11/10/17 12:00 Intake & Output 11/09/17 11/10/17 11/11/17 06:59 06:59 06:59 Intake Total 1713 1761 Output Total 1755 7692 690 Balance -42 -459 -690 Weight 55.4 kg 53 kg Results Laboratory Results: 11/10/17 03:54 11/10/17 03:54 11/10/17 11/10/17 03:54 03:54 WBC 8.0 RBC 4.63 Hgb 12.6 L Hct 37.8 L MCV 82 MCH 27.3 MCHC 33.5 RDW 12.8 Plt Count 233 Seg Neutrophils % 88.0 H Lymphocytes % 8.7 L Monocytes % 2.8 L Eosinophils % 0.3 Basophils % 0.2 Absolute Neutrophils 7.1 Absolute Lymphocytes 0.7 Absolute Monocytes 0.2 Absolute Eosinophils 0.0 Absolute Basophils 0.0 Sodium 139.0 Potassium 3.4 L Chloride 101 Carbon Dioxide 29 Anion Gap 9 BUN 14 Creatinine 0.77 Est GFR ( Amer) > 60 Est GFR (Non-Af Amer) > 60 Glucose 123 H Calcium 8.3 L 11/02/17 11/02/17 11/03/17 20:36 20:36 02:53 Creatine Kinase 4120 H Cancelled CK-MB (CK-2) 3.75 Troponin I 0.016 11/03/17 11/03/17 11/03/17 02:53 03:36 03:36 Creatine Kinase Cancelled CK-MB (CK-2) Cancelled Cancelled Troponin I Cancelled Cancelled 11/03/17 11/03/17 11/03/17 03:36 05:20 05:20 Creatine Kinase Cancelled 2496 H CK-MB (CK-2) 2.77 Troponin I < 0.012 11/03/17 11/03/17 08:46 08:46 Creatine Kinase 2353 H CK-MB (CK-2) 2.64 Troponin I < 0.012 Impressions: Chest X-Ray 11/02/17 14:29 IMPRESSION: Minimal left basilar densities as noted above which could represent atelectatic changes or minimal basilar infiltrate. Remaining lung cooney are clear. Other findings as noted above Chest/Abdomen CTA 11/03/17 00:00 IMPRESSION: No CT angio evidence of acute pulmonary emboli. Dense consolidation in the left posterior lung base worrisome for pneumonia. 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 No abnormal masses or enhancement in the brain parenchyma. No definite acute changes EVIDENCE OF ACUTE STROKE: NO. Assessment & Plan - Plan Summary Plan Summary: 1. Aspiration pneumonia DC Zayran Discuss with Mary [phone] and updated on condition. Patient will be dc in am if remains stable 2. Sepsis apparently resolved 3. Acute kidney injury likely secondary to his acute infection resolved 4. Rhabdomyolysis improved 5. Atrial flutter with rapid ventricular response - controlled 6. Metabolic encephalopathy- ?baseline 7. Prognosis poor.
[2017-11-10] MEDS: ENALAPRIL MALEATE 5 MG TABLET PO SCH (16:32)
[2017-11-10] MEDS: PREDNISONE 20 MG TABLET PO SCH (17:31)
[2017-11-10] MEDS: THIAMINE HCL 100 MG TABLET PO SCH (17:32)
[2017-11-10] MEDS: POTASSI CL 20 MEQ/D5-1/2NS 1L 1,000 ML IV PRN (17:33)
[2017-11-10] MEDS: ENOXAPARIN SODIUM INJ 60 MG/0.6 ML DISP.SYRIN SUBCUT SCH (17:35)
[2017-11-11] MEDS: LACTULOSE SYRUP 20 GM/30 ML UDCUP PO SCH ×2 (01:24→09:30)
[2017-11-11] MEDS: ENALAPRIL MALEATE 5 MG TABLET PO SCH (09:28)
[2017-11-11] MEDS: THIAMINE HCL 100 MG TABLET PO SCH (09:29)
[2017-11-11] MEDS: PREDNISONE 20 MG TABLET PO SCH (09:29)
--- NOTE | 2017-11-11 09:55 | PDOC DISCHARGE SUMMARY ---
General - Admit/Disc Date/PCP Admission Date/Primary Care Provider: 11/02/17 16:23 ERICH MCCURDY MD Discharge Date: 11/11/17 - Discharge Diagnosis (1) Aspiration pneumonia Is this a current diagnosis for this admission?: Yes (2) Atrial flutter with rapid ventricular response Is this a current diagnosis for this admission?: Yes (3) Metabolic encephalopathy Is this a current diagnosis for this admission?: Yes (4) Rhabdomyolysis Is this a current diagnosis for this admission?: Yes (5) Dysphagia Is this a current diagnosis for this admission?: Yes (6) Hypertension Is this a current diagnosis for this admission?: Yes (8) Physical debility Is this a current diagnosis for this admission?: Yes - Additional Information Resuscitation Status: Full Code Discharge Activity: Activity As Tolerated Home Medications: Acetaminophen [Tylenol 325 mg Tablet] 650 mg PO Q6HP PRN 11/02/17 Albuterol Sulfate [Ventolin Hfa] 1 puff IH Q4HP PRN 11/02/17 Apixaban [Eliquis 5 mg Tablet] 5 mg PO Q12 11/02/17 Fluticasone/Salmeterol [Advair 250-50 Diskus 14 Dose/Diskus] 1 puff IH Q12 11/02 Guaifenesin/Dextromethorphan [Tussin Dm Clear Liquid] 10 ml PO Q4H 11/02/17 Ipratropium/Albuterol Sulfate [Combivent Respimat 4 gm Mdi] 1 puff IH QIDP PRN 11/02/17 Lisinopril [Zestril] 10 mg PO DAILY 11/02/17 Metoprolol Succinate [Toprol Xl 25 mg Tab.sr] 25 mg PO Q12 11/02/17 Mirtazapine 7.5 mg PO QHS 11/02/17 Tamsulosin HCl [Flomax 0.4 mg Cap.sr] 0.4 mg PO DAILY 11/02/17 History of Present Illness History of Present Illness: TREY DAWSON is a 67 year old male who presents with altered mental status. He has a history of a stroke with residual left-sided deficits and still smokes, and lives at home with a lady who apparently is his primary caregiver and medical power of hand compositor. She is not here at the moment. I am told by a third democrat report that she had him brought to the hospital because he has not been eating. She then left to go get something to eat herself apparently. Reviewing the chart shows the patient was here in the first of the month was diagnosed with an upper respiratory infection and then went home. He then came back on the , 4 days ago at this point, and had a similar sort of presentation but while he was in the ER he spontaneously came back to his baseline and was sent home. Today he comes in and is found to be a phasic, but was able to squeeze his hand one time for yes or twice for no. He had a leukocytosis, hypertension, elevated CPK, and elevated BUN/creatinine. He has been started on some IV fluids. I cannot find for sure where he has had a fever but by the time I came down to see him he was very sweaty. When I saw him in the room he was completely unresponsive and his pupils were pinpoint, but his vital signs were stable and he was protecting his airway and oxygenating well. An LP has been ordered and that is currently pending. Because of the change in his mental status from off baseline to now completely unresponsive, I decided to admit him to the ICU. A CT scan of his head without contrast showed no new process but it did show the old right MCA stroke we knew he already had. Hospital Course Hospital Course: Who was brought to the emergency room unresponsive. Patient was thought to have a possible infectious and so he had a lumbar puncture done which really did not show any acute infection. He however was ultimately diagnosed with aspiration pneumonia as patient has dysphagia. He was also in acute kidney injury likely secondary to ATN and rhabdomyolysis. This has since resolved. Patient was also found to be in atrial fibrillation with a rapid ventricular response. Cardiology was consulted and patient was treated initially with Cardizem intravenously and Versed. With esmolol however this had been discontinued and patient was started back on his beta blockers. Since her mental status has continued to improve and his infection has been under control. He was treated with intravenous antibiotics for aspiration pneumonia. He had a swallowing evaluation done due to concerns about his swallowing and although initially he failed his he ultimately did well enough to be placed on an oral pured diet. Although we discussed the possibility of patient going to custodial for rehabilitation with his she was adamant about taking him back home and caring for him with the help of home health and so patient is being discharged home with his . Patient's long-term prognosis is poor and would not be surprised a recurrent admissions due to his comorbidities Physical Exam Vital Signs: Temp Pulse Resp BP Pulse Ox 97.3 F 82 20 176/89 H 96 11/11/17 08:22 11/11/17 08:22 11/11/17 08:22 11/11/17 08:22 11/11/17 08:22 Intake & Output 11/10/17 11/11/17 11/12/17 06:59 06:59 06:59 Intake Total 1761 1182 Output Total 2220 1055 Balance -459 127 Weight 53 kg 53.1 kg General appearance: PRESENT: no acute distress, other - Chronically ill looking Head exam: PRESENT: atraumatic, normocephalic Eye exam: PRESENT: conjunctiva pink, EOMI, PERRLA. ABSENT: scleral icterus Ear exam: PRESENT: normal external ear exam Mouth exam: PRESENT: tongue midline Neck exam: ABSENT: carotid bruit, JVD, lymphadenopathy, thyromegaly Respiratory exam: PRESENT: decreased breath sounds. ABSENT: rales, rhonchi, wheezes Cardiovascular exam: PRESENT: irregular rhythm, +S1, +S2. ABSENT: diastolic murmur, rubs, systolic murmur Pulses: PRESENT: normal dorsalis pedis pul Vascular exam: PRESENT: normal capillary refill GI/Abdominal exam: PRESENT: normal bowel sounds, soft. ABSENT: distended, guarding, mass, organolmegaly, rebound, tenderness Rectal exam: PRESENT: deferred Extremities exam: PRESENT: full ROM. ABSENT: calf tenderness, clubbing, pedal edema Musculoskeletal exam: PRESENT: other - Upper extremity contractions Neurological exam: PRESENT: alert, awake, other - Dysarthria. ABSENT: motor sensory deficit Psychiatric exam: PRESENT: appropriate affect, suicidal ideation. ABSENT: homicidal ideation Skin exam: PRESENT: dry, intact, warm. ABSENT: cyanosis, rash Results Laboratory Results: 11/10/17 03:54 11/10/17 03:54 11/02/17 11/02/17 11/03/17 20:36 20:36 02:53 Creatine Kinase 4120 H Cancelled CK-MB (CK-2) 3.75 Troponin I 0.016 11/03/17 11/03/17 11/03/17 02:53 03:36 03:36 Creatine Kinase Cancelled CK-MB (CK-2) Cancelled Cancelled Troponin I Cancelled Cancelled 11/03/17 11/03/17 11/03/17 03:36 05:20 05:20 Creatine Kinase Cancelled 2496 H CK-MB (CK-2) 2.77 Troponin I < 0.012 11/03/17 11/03/17 08:46 08:46 Creatine Kinase 2353 H CK-MB (CK-2) 2.64 Troponin I < 0.012 Impressions: Chest X-Ray 11/02/17 14:29 IMPRESSION: Minimal left basilar densities as noted above which could represent atelectatic changes or minimal basilar infiltrate. Remaining lung cooney are clear. Other findings as noted above Chest/Abdomen CTA 11/03/17 00:00 IMPRESSION: No CT angio evidence of acute pulmonary emboli. Dense consolidation in the left posterior lung base worrisome for pneumonia. 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 No abnormal masses or enhancement in the brain parenchyma. No definite acute changes EVIDENCE OF ACUTE STROKE: NO. Qualifiers - * PATIENT BEING DISCHARGED WITH ANY OF THE FOLLOWING DIAGNOSIS: No Plan Time Spent: Greater than 30 Minutes
[2017-11-11 10:05] VITALS: BP 166/82
== END 2017-11-11 10:50 | disposition home health service (06) | DRG 871 ==
LOC: ER 12:19 → EH 16:23 → ICU 18:31
PROVIDERS: ADMIT Internal Medicine; ATTEND Internal Medicine
PROC: 009U3ZX Drainage of Spinal Canal, Percutaneous Approach, Diagnostic (ICD-10-PCS; principal; 2017-11-02)
PROC: 5A09557 Assistance with Respiratory Ventilation, Greater than 96 Consecutive Hours, Continuous Positive Airway Pressure (ICD-10-PCS; 2017-11-02)
DX: A41.9 Sepsis, unspecified organism (principal); J69.0 Pneumonitis due to inhalation of food and vomit; G93.41 Metabolic encephalopathy; N17.0 Acute kidney failure with tubular necrosis; M62.82 Rhabdomyolysis; I48.92 Unspecified atrial flutter; I42.9 Cardiomyopathy, unspecified; I69.354 Hemiplegia and hemiparesis following cerebral infarction affecting left non-dominant side; I48.0 Paroxysmal atrial fibrillation; D72.829 Elevated white blood cell count, unspecified; Z86.718 Personal history of other venous thrombosis and embolism; J44.9 Chronic obstructive pulmonary disease, unspecified; Z79.51 Long term (current) use of inhaled steroids; M19.90 Unspecified osteoarthritis, unspecified site; R13.10 Dysphagia, unspecified; F32.9 Major depressive disorder, single episode, unspecified; F17.210 Nicotine dependence, cigarettes, uncomplicated; E78.5 Hyperlipidemia, unspecified; I10 Essential (primary) hypertension; E86.0 Dehydration; R00.1 Bradycardia, unspecified
CPT/HCPCS: 36415; 51701; 51702; 70450; 70460; 71045; 71275; 80048; 80053; 80061; 80202; 80307; 81001; 82140; 82550; 82553; 82565; 82803; 82945; 82962; 83605; 83735; 84100; 84157; 84484; 85025; 85610; 87040; 87070; 87086; 87205; 87529; 89050; 93005; 93010; 93306; 94660; 96361; 96372; 96374; 99291; G8996-GN; G8997-GN; J0282; J0360; J0696; J1650; J1885; J2060; J2405; J2543; J2920; J3010; J3370; J3411; J3480; J3490; J7030; J7050; J7060; J7512